=== PATIENT | male | born 1965 | race American Indian/Alaskan Native ===

== ENCOUNTER 2017-01-26 08:40 | Inpatient (IN) | payer MEDICAID ==
[2017-01-21 10:09] LABS: Hematocrit 40.8 % (35.5-45.6); Hemoglobin 13.2 gm/dl (11.8-15.2); Mean Corpuscular HGB Conc 32 % (32-34); Mean Corpuscular Hemoglobin 27 pg (28-32); Mean Corpuscular Volume 85 fl (84-94); Platelet Count 169 K/mm3 (140-440); Red Cell Distribution Width 15.4 % (13.2-15.2); White Blood Count 7.4 K/mm3 (4.5-11.0)
[2017-01-21 10:22] LABS: INR 1.01 (0.87-1.13)
[2017-01-21 10:23] LABS: Partial Thromboplastin Time 27.7 Sec. (24.2-36.6)
[2017-01-21 11:00] LABS: Basophils % (Manual) 0 % (0.0-1.8); Blastocytes % (Manual) 0 %
[2017-01-21 11:01] LABS: Eosinophils % (Manual) 2 % (0.0-4.3)
[2017-01-21 11:02] LABS: Anisocytosis Few; Diff Status Complete
--- NOTE | 2017-01-21 11:02 | Anesthesia Consultation ---
Anesthesia Consult and Med Hx Date of service: 01/26/17 - Airway Anesthetic Teeth Evaluation: Good ROM Head & Neck: Adequate Mental/Hyoid Distance: Adequate Mallampati Class: Class II Intubation Access Assessment: Probably Good - Pulmonary Exam CTA: Yes - Cardiac Exam Cardiac Exam: RRR - Pre-Operative Health Status ASA Pre-Surgery Classification: ASA2 Proposed Anesthetic Plan: General - Pulmonary Hx Smoking: Yes (STOPPED 05/2016-11/15 PPD X 30YRS) Hx Sleep Apnea: No (DHEERAJ PRE SCREEN HIGH RISK) - Cardiovascular System Hx Hypertension: No - Central Nervous System Hx Psychiatric Problems: No - Gastrointestinal Hx Gastroesophageal Reflux Disease: No - Endocrine Hx End Stage Renal Disease: No Hx Insulin Dependent Diabetes: No - Hematic Hx Anemia: Yes Hx Sickle Cell Disease: No - Other Systems Hx Alcohol Use: Yes (STOPPED MARCH 2016; WEEKENDS ONLY) Hx Substance Use: No Hx Cancer: Yes
[2017-01-21 12:43] LABS: Alanine Aminotransferase 62 units/L (7-56); Albumin 3.5 g/dL (3.9-5); Alkaline Phosphatase 57 units/L (35-129); Anion Gap 16 mmol/L; Bilirubin,Total 0.3 mg/dL (0.1-1.2); Blood Urea Nitrogen 18 mg/dL (9-20); Calcium 8.4 mg/dL (8.4-10.2); Carbon Dioxide 22 mmol/L (22-30); Glucose 104 mg/dL (75-100); Potassium 3.8 mmol/L (3.6-5.0); Sodium 138 mmol/L (137-145); Total Protein 6.9 g/dL (6.3-8.2)
--- NOTE | 2017-01-24 18:40 | Admit Criteria Form ---
Admission Criteria Documentation: AMBULATORY SURGERY EXCEPTION CRITERIA Ambulatory Surgery Exception Criteria ( Place 'X' for any and all applicable criteria): Surgery or procedure performed on ambulatory basis may require inpatient stay for[A] ANY ONE of the following(1)(2)(3)(4)(5)(6)(7)(8)(9): [X] I. A preoperative situation, condition, or finding that warrants inpatient stay as indicated by ANY ONE of the following: [X] a) Inpatient care needed because of severity of a disease or condition rather than the surgery (eg, severe cardiac or respiratory disease, severe infection) (15) (16 ) (17) (18) [] b) Emergent procedure (eg, angioplasty for acute ischemia)(19) [] c) Complex surgical approach or situation as indicated by ANY ONE of the following(3): [] i) Open approach needed instead of usual endoscopic, transcatheter, or other less invasive procedure [] ii) Difficult approach because of previous operation [] iii) Airway monitoring required after open neck procedures(20)(21) [] iv) Large mass requiring unusually extensive dissection [] v) Additional complicating feature requiring inpatient care (eg, drain management)(22(23): [] d) Major surgery in a pt with high anesthetic risk as indicated by ANY ONE of the following (2)(3)(5)(7)(8): [] i) ASA risk class III or higher (severe systemic disease impairing function) [D] [] ii) Advanced age (eg, older than 85 years)(14)(24) [] iii) Symptomatic heart failure(25) [] iv) Symptomatic asthma or COPD(8)(21) [] v) Morbid obesity with hemodynamic or respiratory problems(20)( 21)(26)(27) [] vi) Obstructive sleep apnea(20)(21) [] vii) Former premature infants who are younger than 60 weeks [] viii) High risk for severe postoperative abnormalities (eg, severe postoperative hypocalcemia after parathyroidectomy for severe hyperparathyroidism)(27)( 28) [] ix) Unstable angina(25) [] e) Drug-related risk requiring inpatient stay as indicated by ANY ONE of the following(5)(10)(14)(32)(33) [] i) Procedure requires discontinuing drugs or other therapy (eg , antiarrhythmic medication, antiseizure medication), which necessitates inpatient observation or treatment.(18)(31) [] ii) Major surgery and high risk drug use as indicated by ANY ONE of the following: [] 1) Active abuse of cocaine or similar drug [] 2) Monoamine oxidase inhibitor use [] 3) Other drug identified as posing risk [] f) Inadequate outpatient care situation as indicated by ANY ONE of the following(5)(10)(14)(32)(33) [] i) Patient lives remote from medical facility and procedure has urgent complication potential, and temporary nearby residence cannot be arranged [] ii) Patient will have postprocedure incapacitation and inadequate assistance at home, or alternative level of care cannot be arranged. [] iii) Patient will have long general anesthesia or procedure side effect resolution time, and competent person to stay with patient on first postoperative night at home or alternative level of care cannot be arranged. []iv) Other inadequate outpatient situation that cannot be handled by other means [] II. A perioperative event, condition, or finding that warrants inpatient stay as indicated by ANY ONE of the following (1)(2)(3): [] a) Inadequate physiologic recovery: cardiovascular, respiratory, or hemodynamic status not normal or near preoperative baseline(18) [] b) Hemodynamic instability [] c) Patient not alert with near normal or baseline mental status [] d) Temperature not normal or as expected and not appropriate for outpatient treatment of condition [] e) Ambulatory or appropriate activity level status not yet achieved post procedure [E](34)(35)(36) [] f) Operative site not appropriate (eg, unexpected or excessive drainage or bleeding) [] g) Postoperative effects not resolved or adequately managed (eg, significant pain or vomiting not appropriate for outpatient or next level of care)(10)(12) [] h) Complicating features requiring inpatient care as indicated by ANY ONE of the following(37): [] i) Severe complications of procedure (eg, bowel injury, airway compromise, vascular injury,severe hemorrhage) [] ii) Extensive (eg, dissection far beyond usual scope of procedure ) or prolonged (eg, 120 minutes beyond usual) surgery needed requiring inpatient postoperative care [] iii) Conversion to an open or complex procedure that requires inpatient care (eg, open vs laparoscopic cholecystectomy, abdominal vs vaginal hysterectomy)(38) [] iv) Comorbid condition or test result identified during or post procedure that requires inpatient care (7) [] v) Malignant hyperthermia(30) [] vi) Other complicating feature requiring inpatient care(22)(23) Inpatient stay may be needed until ALL of the following are present (1)(2)(3)(4) (5)(6)(10)(14)(33)(40): []a) Physiologic recovery: cardiovascular, respiratory, and hemodynamic status normal or near preoperative baseline []b) Hemodynamic stability []c) Patient alert, with near normal or baseline mental status []d) Temperature appropriate: patient afebrile or temperature appropriate for outpt treatment of condition []e) Activity level appropriate: ambulatory or appropriate activity level post procedure []f) Operative site appropriate as indicated by ALL of the following: []i) Site dry or with expected drainage []ii) Any blood noted is as expected for procedure. []g) Postoperative effects resolved or managed as indicated by ALL of the following: []i) Pain management appropriate for outpatient (or next level of) care(10) []ii) Minimal nausea and vomiting: if present, successfully treated with oral medication(12) []iii) Headache, dizziness, or drowsiness (if present) are mild. []h) Voiding status acceptable as indicated by ANY ONE of the following: []i) Voiding spontaneously []ii) No voiding but instructions given for follow-up in 6 to 8 hours []iii) Urinary catheter in place, and instructions given for follow-up []i) Complicating features requiring inpatient care manageable at a lower level of care(37) []j) Comorbid conditions manageable at a lower level of care(37) The original [employer] content created by [employer] has been revised. The portions of the content which have been revised are identified through the use of italic text or in bold, and [employer] has neither reviewed nor approved the modified material. All other unmodified content is copyright [employer]. Please see references footnoted in the original [employer] edition 2016 Admission Criteria Met: Yes
[~2017-01-26 08:40] MED LIST: ACD-A IV ONE; LACTATED RINGERS 1,000 ML IV SCH; NACL 0.9% 500 ML 500 ML IV NR; NACL 0.9% 500 ML 500 ML IV ONE; PEPCID PO NR; VERSED IV NR
[2017-01-26] MEDS ORDERED: SUBLIMAZE ONE (11:50)
[2017-01-26] MEDS ORDERED: DIPRIVAN 10 MG/ML IV ONE (11:50)
[2017-01-26] MEDS ORDERED: NEO SYNEPHRINE ONE ×3 (11:58→15:14)
[2017-01-26] MEDS ORDERED: NACL 0.9% ONE (11:58)
[2017-01-26] MEDS ORDERED: ANCEF/STERILE WATER 2 GM/20 ML IV NR (12:00)
--- NOTE | 2017-01-26 12:05 | XRay Report ---
AP CHEST: HISTORY: Central line placement A right IJ venous catheter has been inserted which terminates in the superior right atrium. No pneumothorax. AP view of the chest demonstrates a normal mediastinal and cardiac contour with clear lungs and normal bony and soft tissue structures. IMPRESSION: Line placement as described. No acute process.
[2017-01-26] MEDS ORDERED: XYLOCAINE MPF 2% ONE ×7 (13:25→17:06)
[2017-01-26] MEDS ORDERED: ZEMURON IV ONE ×4 (13:26→16:55)
[2017-01-26] MEDS ORDERED: NACL 0.9% 100 ML ONE ×2 (13:26→15:14)
[2017-01-26] MEDS ORDERED: ROBINUL ONE ×2 (15:14→16:39)
[2017-01-26] MEDS ORDERED: LASIX ONE (15:47)
[2017-01-26] MEDS ORDERED: LACTATED RINGERS 1,000 ML ONE ×2 (15:48→16:37)
[2017-01-26] MEDS ORDERED: ANCEF ONE (15:50)
[2017-01-26] MEDS ORDERED: SODIUM CHLORIDE FLUSH SYRINGE 10 ML IV PRN (16:17)
[2017-01-26] MEDS ORDERED: NARCAN 0.4 MG/1 ML IV PRN ×2 (16:17→17:20)
[2017-01-26] MEDS ORDERED: NEOSTIGMINE ONE (16:39)
[2017-01-26] MEDS ORDERED: ZOFRAN ONE (16:39)
--- NOTE | 2017-01-26 17:18 | Post Operative Note ---
Pre-op diagnosis: bladder cancer Post-op diagnosis: same Procedure: radical cysto prostatectomy ileal conduit Anesthesia: GETA Surgeon: SHIRA OLIVO Gas Transfer Operator: MISHA MANN Estimated blood loss: other (650) Pathology: list (bladder prostae appendix) Specimen disposition: to lab Condition: stable Disposition: ICU
[2017-01-26] MEDS ORDERED: ePHEDrine SULFATE ONE (17:34)
[2017-01-26] MEDS ORDERED: VERSED ONE (17:43)
[2017-01-26] MEDS ORDERED: ALBURX 25% (ALBUMIN) IV ONE ×3 (17:48→19:00)
[2017-01-26] MEDS ORDERED: D5W/0.45% NACL/KCL 20 MEQ 20 MEQ/1,000 ML BAG IV SCH (18:00)
[2017-01-26 18:14] LABS: Hematocrit 36.2 % (35.5-45.6); Hemoglobin 11.5 gm/dl (11.8-15.2); Mean Corpuscular HGB Conc 32 % (32-34); Mean Corpuscular Hemoglobin 27 pg (28-32); Mean Corpuscular Volume 86 fl (84-94); Platelet Count 227 K/mm3 (140-440); Red Blood Count 4.23 M/mm3 (3.65-5.03); Red Cell Distribution Width 15.7 % (13.2-15.2)
[2017-01-26 18:16] LABS: White Blood Count 20.2 K/mm3 (4.5-11.0)
[2017-01-26 18:23] LABS: INR 1.18 (0.87-1.13)
[2017-01-26 18:24] LABS: Partial Thromboplastin Time 24.9 Sec. (24.2-36.6)
[2017-01-26] MEDS ORDERED: SUBLIMAZE 500 MCG in NACL 0.9% 90 ML EPIDURAL SCH (18:30)
[2017-01-26 18:31] LABS: Anion Gap 16 mmol/L; Blood Urea Nitrogen 15 mg/dL (9-20); Calcium 7.4 mg/dL (8.4-10.2); Carbon Dioxide 21 mmol/L (22-30); Chloride 107.5 mmol/L (98-107); Glucose 141 mg/dL (75-100); Potassium 5.3 mmol/L (3.6-5.0); Sodium 139 mmol/L (137-145)
[2017-01-26] MEDS ORDERED: DILAUDID ONE ×2 (18:34→20:27)
[2017-01-26] MEDS ORDERED: ZOFRAN IV PRN (18:39)
[2017-01-26] MEDS ORDERED: NACL 0.9% IR ONE (18:40)
[2017-01-26] MEDS ORDERED: TISSEEL VHSD FROZEN 4 ML SYR TP ONE (18:40)
[2017-01-26] MEDS: DILAUDID IV PRN ×3 (18:40→21:59)
[2017-01-26] MEDS ORDERED: TORADOL ONE (19:04)
[2017-01-26 19:25] LABS: Basophils % (Manual) 0 % (0.0-1.8); Blastocytes % (Manual) 0 %; Eosinophils % (Manual) 0 % (0.0-4.3)
[2017-01-26 19:27] LABS: Anisocytosis 1+; Diff Status Complete
[2017-01-26] MEDS ORDERED: NACL 0.9% 1000 ML 1,000 ML ONE (19:31)
--- NOTE | 2017-01-26 19:52 | Post Anesthesia Evaluation ---
- Post Anesthesia Evaluation Patient Participated: Yes Airway Patent: Yes Stable Respiratory Function: Yes Nausea/Vomiting: No Temp > 96.8F: Yes Pain Manageable: Yes Adequeate Hydration: Yes Anesthesia Complications: No
[2017-01-26] MEDS ORDERED: TORADOL IV ONE (20:00)
[2017-01-26 21:25] LABS: Hematocrit 33.9 % (35.5-45.6); Hemoglobin 10.7 gm/dl (11.8-15.2); Mean Corpuscular HGB Conc 32 % (32-34); Mean Corpuscular Hemoglobin 27 pg (28-32); Mean Corpuscular Volume 86 fl (84-94); Platelet Count 174 K/mm3 (140-440); Red Blood Count 3.94 M/mm3 (3.65-5.03); Red Cell Distribution Width 15.7 % (13.2-15.2)
--- NOTE | 2017-01-26 21:32 | Operative Report ---
PREOPERATIVE DIAGNOSIS: Malignancy of the urinary bladder. POSTOPERATIVE DIAGNOSIS: Malignancy of the urinary bladder. PROCEDURES: 1. Exploratory laparotomy, total cystectomy, and ileal conduit with a segment of the distal ileum with implantation of both ureters in it.Tis was done by Dr Nassar 2. Appendectomy. This was done in conjunction with Dr. Wu and Dr. Ely as co-surgeons. My involvement is mainly in the GI tract to take a segment of the small intestines and the distal ileum and to hook it to the abdominal wall as an ileostomy with the implantation of the ureters at its proximal aspect as per description of Dr. Wu. We did appendectomy as well because it is a part and parcel of the operation. ANESTHESIA: General. BLOOD LOSS: As per Dr. Wu. DESCRIPTION OF PROCEDURE: As Dr. Wu finished opening the abdomen, I walked in to evaluate the situation and he did that after doing the cystectomy as well and he prepared the both ends of the ureters for the implantation. At that point, an area of the distal ileum was selected about a good 20 cm from the ileocecal valve. Prior to that, we took the appendix out with the mesoappendix was suture ligated using for that purpose 3-0 Vicryl and then the appendix was removed in toto tying it with the suture ligature of 3-0 Vicryl. We assured good hemostasis. Then, our attention was directed to the segment of the ileum that was resected. We used for that purpose the NAKIA and we could see good arterial supply and venous drainage from that segment and to me the mesentery itself. After that maneuvering, Dr. Wu put the implants into the proximal segment of that area and then it was delivered through the abdominal wall on the right side of the midline incision. It was tacked to the skin interruptedly with the use of 3-0 Vicryl. With it or within it, the two ureteral stents that was inserted by Dr. Wu for there. We were well satisfied with good hemostasis. Then, the fascia was closed with a continuous stitch of loop PDS #2, reinforced with multiple interrupted stitches of 3-0 Vicryl and the skin with kole. We are going to apply a bag to the ileostomy opening, with the 2 catheters draining clear urine. The patient was then transferred to the recovery room. He is going to go to the Intensive Care Unit . JOB# [id number] JOSLYN/JOHN CALLE
[2017-01-26 21:36] LABS: Anion Gap 16 mmol/L; Blood Urea Nitrogen 13 mg/dL (9-20); Calcium 7.3 mg/dL (8.4-10.2); Carbon Dioxide 19 mmol/L (22-30); Chloride 107.9 mmol/L (98-107); Glucose 147 mg/dL (75-100); Sodium 139 mmol/L (137-145)
[2017-01-26] MEDS ORDERED: D5NS 1,000 ML IV SCH (22:00)
--- NOTE | 2017-01-26 22:05 | Operative Report ---
PREOPERATIVE DIAGNOSIS: Extensive bladder cancer. POSTOPERATIVE DIAGNOSIS: Extensive bladder cancer. PROCEDURE: Radical cystoprostatectomy and ileal conduit diversion appendectomy. SURGEON: Gopal Wu MD ASSISTANTS: Dr. Ely and Dr. Easton. ANESTHESIA: General and epidural. FINDINGS: This is a gentleman with extensive bladder cancer. He has had second and offered third opinions and intermittently had refused surgery and delayed for quite some time. He started bleeding actually over a year before his first visit. He now presents for treatment. He is a heavy smoker in the past. DESCRIPTION OF PROCEDURE: The patient was brought to the operating room and placed on the operating table. Following induction of anesthesia, placed in the supine position, prepped and draped in the usual sterile fashion. A midline incision was made to the left umbilicus, carried through the skin and superficial fascia. The fascia was opened and the retropubic space was developed. We evaluated the nodes on each side, there were no large nodes. The bladder was mobile. We divided the urachus and urachal remnants and tied it with a silk. Both pedicles were dissected free, and once they were mobilized, we divided the vas and freed up the bladder anteriorly. We then dissected out both ureters and sent the distal ureters for frozen section, which were benign. Stay sutures were placed in the ureters. It should be noted the ureters were quite delicate, very, very thin and very, very narrow. At this point, the pedicles were taken with articulating Endo NAKIA all the way down to the prostate and then the inferior vesical pedicle was then taken. Posteriorly, we had a good plane between the rectum and [place]illiers and we were able to dissect out the seminal vesicle and vasa on both sides without difficulty. Anteriorly, we divided the puboprostatic and then we divided the urethra and freed up the prostate and removed the specimen. Wound was copiously irrigated. We placed initially a suture ligature around the dorsal venous complex along with tighter before we divided it. Hemostasis was excellent. A 20-[place]izen [place] Perez was placed with Surgicel in the pelvis. There was approximately 25 mL in the balloon. Wound was copiously irrigated. We used Tisseel in the pelvis as well. At this point, Dr. Easton mobilized the colon, did an appendectomy that will be dictated separately and did the small bowel conduit of the ileum. The anastomosis was completed and that will be dictated separately. Attention was made towards the ureteroileal anastomosis. There was approximately 15 cm of ileum. The left ureter was brought through the mesentery of the colon and again this was so narrow and so delicate the ureters. We spatulated with Calderón scissors and using a 3-0 and 4-0 Vicryl on an RB needle. The anastomosis was completed. We tried to place an 8-[place]izen [place] feeding tube, it was too narrow. We tried to place a 7-[place]izen [place] single J, it was too narrow. We then used a wire and placed 6-[place]izen [place] open-ended catheters on each side. The right anastomosis was then completed as well. Wound was irrigated. The conduit was sutured with two sutures of 3-0 chromic to the body wall away from the area of closure. At this point, the stoma was created by excising the skin and fatty tissue and bringing the loop through and securing it with four sutures of 2-0 Vicryl. We everted as much as possible. He is quite a heavy gentleman and we developed a [place]. There was a little duskiness at the stoma, but it was quite viable and 2 fingerbreadths easily accommodated the conduit and it was wide open. The stents were secured with 3-0 chromic. Wound was irrigated. An ostomy bag was applied. The closure was accomplished with looped PDS and #1 Vicryls and clips. The patient tolerated the procedure well. Estimated blood loss 650 mL. He was given Cell Saver. I saw this specimen a bivalve that was an extensive cancer in the bladder. He was brought to recovery room with NG tube and the pelvic drain in stable condition. JOB# [id number] MAJO/JOHN
[2017-01-26 22:17] LABS: Basophils % (Manual) 0 % (0.0-1.8); Blastocytes % (Manual) 0 %; Eosinophils % (Manual) 0 % (0.0-4.3)
[2017-01-26 22:18] LABS: Anisocytosis 1+; Diff Status Complete; Platelet Estimate Consistent w Auto
[2017-01-27] MEDS ORDERED: NACL 0.9% 500 ML 500 ML IV ONE (00:58)
[2017-01-27] MEDS ORDERED: LACTATED RINGERS 1,000 ML IV SCH (07:00)
--- NOTE | 2017-01-27 07:15 | XRay Report ---
Single view chest: Compared to 01/26/17. History: NG tube placement. Findings: Normal cardiomediastinal silhouette. Tip of NG tube in stomach. Trachea is midline. Tip of right central line in superior vena cava. No consolidation, pneumothorax or pleural effusion. The Impression: No acute cardiopulmonary findings.
--- NOTE | 2017-01-27 07:55 | Event Note ---
Date: 01/27/17 Discussed w/ nursing staff pt management and parameters to contact me and laboratory technologist immediately and for any low bp. pt stable w/ some borderline bp. MS , uop good. Labs reviewed. Will transfuse 1 unit and monitor to keep ahead of fluid shifts. Nurse given my Home phone number in case problems with contacting through answering service.
[2017-01-27] MEDS: MORPHINE IV PRN (08:44)
--- NOTE | 2017-01-27 09:29 | Consultation ---
History of Present Illness - Reason for Consult Consult date: 01/27/17 ICU Requesting physician: SHIRA OLIVO - History of Present Illness 51 y/o male s/p radical cysto prostatectomy ileal conduit . Admitted to ICU for observation. This patient this am, complains of pain. Breathing is stable. No family currently at bedside. Has an art line with normal BP. BP cough is reading significantly lower. Likely too big. Past History Past Surgical History: No surgical history Social history: no significant social history Medications and Allergies Allergies Allergy/AdvReac Type Severity Reaction Status Date / Time Iodine and Iodide Containing Allergy Swelling Verified 09/22/16 13:07 Produc shrimp Allergy Swelling Verified 09/22/16 13:07 Home Medications Medication Instructions Recorded Confirmed Last Taken Type Acetaminophen [Acetaminophen TAB] 650 mg PO Q4H PRN #30 tablet 06/03/1601/25/17 Rx Ferrous Sulfate [Feosol 325 MG tab] 325 mg PO BID #60 tablet 06/03/16 01/20/17 01/25/17 Rx oxyCODONE /ACETAMINOPHEN [Percocet 1 tab PO Q4H PRN #30 tablet 06/03/1601/25/17 Rx 5/325 mg] Active Meds: Active Medications Acetaminophen/Hydrocodone Bitart ([place] 5/325) 2 each PO Q6H PRN PRN Reason: Pain, Moderate (4-6) Famotidine (Pepcid) 20 mg IV BID CATINA Hydromorphone HCl (Dilaudid) 0.5 mg IV Q10MIN PRN PRN Reason: Pain , Severe (7-10) Stop: 01/29/17 18:40 Last Admin: 01/26/17 21:59 Dose: 0.5 mg Fentanyl 500 mcg/ Sodium (Chloride) 100 mls @ 8 mls/hr EPIDURAL DIRECT CATINA PRN Reason: Protocol Cefazolin Sodium (Ancef/Ns 1 Gm/50 Ml) 1 gm in 50 mls @ 100 mls/hr IV Q8H CATINA PRN Reason: Protocol Stop: 01/28/17 10:29 Dextrose/Sodium Chloride (D5ns) 1,000 mls @ 100 mls/hr IV DIRECT CATINA Lactated Ringer's (Lactated Ringers) 1,000 mls @ 150 mls/hr IV DIRECT CATINA Influenza Virus Vaccine Quadrival (Fluarix Quad [id number](36 Mos+)) 60 mcg IM .ONCE ONE Stop: 01/27/17 12:01 Metoclopramide HCl (Reglan) 10 mg IV Q6H PRN PRN Reason: Nausea And Vomiting Morphine Sulfate (Morphine) 2 mg IV Q4H PRN PRN Reason: Pain, Moderate (4-6) Last Admin: 01/27/17 08:44 Dose: 2 mg Naloxone HCl (Narcan 0.4 Mg/1 Ml) 0.1 mg IV Q2MIN PRN PRN Reason: Res Rate </= 8 or 02 SAT < 92% Ondansetron HCl (Zofran) 4 mg IV Q8H PRN PRN Reason: N/V unrelieved by Reglan Sodium Chloride (Sodium Chloride Flush Syringe 10 Ml) 10 ml IV PRN PRN PRN Reason: LINE FLUSH Review of Systems All systems: negative Exam - Constitutional Vitals: Temp Pulse Resp BP Pulse Ox 99.2 F 90 21 109/66 98 01/27/17 08:13 01/27/17 08:00 01/27/17 08:00 01/27/17 08:00 01/27/17 08:00 General appearance: Present: mild distress (secondary to pain) - EENT Eyes: Present: PERRL, EOM intact ENT: hearing intact, clear oral mucosa, dentition normal - Neck Neck: Present: supple, normal ROM - Respiratory Respiratory effort: normal Respiratory: bilateral: CTA - Cardiovascular Rhythm: regular Heart Sounds: Present: S1 & S2 - Extremities Extremities: no ischemia - Abdominal General gastrointestinal: Present: soft Male genitourinary: Present: deferred - Rectal Rectal Exam: deferred - Integumentary Integumentary: Present: clear, warm, dry - Musculoskeletal Musculoskeletal: strength equal bilaterally - Psychiatric Psychiatric: appropriate mood/affect - Neurologic Neurologic: CNII-XII intact Results - Labs CBC & Chem 7: 01/26/17 Unknown 01/26/17 Unknown Labs: Abnormal lab results 01/26/17 01/26/17 01/26/17 Range/Units 10:45 17:53 17:53 WBC 20.2 H (4.5-11.0) K/mm3 Hgb 11.5 L (11.8-15.2) gm/dl Hct (35.5-45.6) % MCH 27 L (28-32) pg RDW 15.7 H (13.2-15.2) % Seg Neuts % (Manual) 85.0 H (40.0-70.0) % Lymphocytes % (Manual) 7.0 L (13.4-35.0) % Monocytes % (Manual) 8.0 H (0.0-7.3) % Seg Neutrophils # Man 17.2 H (1.8-7.7) K/mm3 Lymphocytes # (Manual) (1.2-5.4) K/mm3 Monocytes # (Manual) 1.6 H (0.0-0.8) K/mm3 INR 1.18 H (0.87-1.13) Potassium (3.6-5.0) mmol/L Chloride (98-107) mmol/L Carbon Dioxide (22-30) mmol/L Glucose (75-100) mg/dL Calcium (8.4-10.2) mg/dL Crossmatch See Detail 01/26/17 01/26/17 01/26/17 Range/Units 17:53 Unknown Unknown WBC 16.0 H (4.5-11.0) K/mm3 Hgb 10.7 L (11.8-15.2) gm/dl Hct 33.9 L (35.5-45.6) % MCH 27 L (28-32) pg RDW 15.7 H (13.2-15.2) % Seg Neuts % (Manual) 90.0 H (40.0-70.0) % Lymphocytes % (Manual) 5.0 L (13.4-35.0) % Monocytes % (Manual) (0.0-7.3) % Seg Neutrophils # Man 14.4 H (1.8-7.7) K/mm3 Lymphocytes # (Manual) 0.8 L (1.2-5.4) K/mm3 Monocytes # (Manual) (0.0-0.8) K/mm3 INR (0.87-1.13) Potassium 5.3 H (3.6-5.0) mmol/L Chloride 107.5 H 107.9 H (98-107) mmol/L Carbon Dioxide 21 L 19 L (22-30) mmol/L Glucose 141 H 147 H (75-100) mg/dL Calcium 7.4 L 7.3 L (8.4-10.2) mg/dL Crossmatch - Imaging and Cardiology Chest x-ray: image reviewed (clear) Assessment and Plan 51 y/o male s/p radical cysto prostatectomy ileal conduit . 1. needs better pain control 2. Will order IS to bedside 3. Will ask nursing about BP cough change out.
--- NOTE | 2017-01-27 09:58 | Progress Note ---
Assessment and Plan ostomy bag filled leaking all over bed awake and alert pain meds needed labs noted Subjective Date of service: 01/27/17 Principal diagnosis: bladder cancer Objective - Constitutional Vitals: Vital Signs - 12hr 01/26/17 01/26/17 01/26/17 22:00 22:11 22:12 Temperature Pulse Rate 93 H 89 Respiratory 22 18 Rate Blood Pressure 102/68 102/68 O2 Sat by Pulse 99 99 98 Oximetry 01/26/17 01/26/17 01/26/17 22:21 22:30 22:41 Temperature Pulse Rate 90 87 83 Respiratory 15 21 18 Rate Blood Pressure 102/68 99/58 99/58 O2 Sat by Pulse 99 99 98 Oximetry 01/26/17 01/26/17 01/26/17 22:51 23:00 23:11 Temperature Pulse Rate 87 82 81 Respiratory 17 18 18 Rate Blood Pressure 93/60 92/59 92/59 O2 Sat by Pulse 98 100 99 Oximetry 01/26/17 01/26/17 01/26/17 23:21 23:30 23:41 Temperature Pulse Rate 81 81 82 Respiratory 16 17 13 Rate Blood Pressure 94/63 89/64 89/64 O2 Sat by Pulse 99 99 98 Oximetry 01/26/17 01/27/17 01/27/17 23:51 00:00 00:11 Temperature 98.4 F Pulse Rate 76 87 82 Respiratory 14 15 12 Rate Blood Pressure 83/58 89/60 89/60 O2 Sat by Pulse 99 98 99 Oximetry 01/27/17 01/27/17 01/27/17 00:21 00:30 00:41 Temperature Pulse Rate 81 83 79 Respiratory 15 13 15 Rate Blood Pressure 94/61 86/61 86/61 O2 Sat by Pulse 99 99 100 Oximetry 01/27/17 01/27/17 01/27/17 00:51 01:00 01:11 Temperature Pulse Rate 80 79 77 Respiratory 16 18 19 Rate Blood Pressure 96/63 98/66 98/66 O2 Sat by Pulse 99 98 99 Oximetry 01/27/17 01/27/17 01/27/17 01:21 01:30 01:41 Temperature Pulse Rate 87 81 81 Respiratory 23 16 14 Rate Blood Pressure 97/66 97/67 97/67 O2 Sat by Pulse 99 99 98 Oximetry 01/27/17 01/27/17 01/27/17 01:51 02:00 02:11 Temperature Pulse Rate 83 82 79 Respiratory 18 20 15 Rate Blood Pressure 97/68 105/71 105/71 O2 Sat by Pulse 98 99 99 Oximetry 01/27/17 01/27/17 01/27/17 02:21 02:30 02:41 Temperature Pulse Rate 82 81 82 Respiratory 19 17 22 Rate Blood Pressure 81/47 105/69 81/47 O2 Sat by Pulse 98 99 99 Oximetry 01/27/17 01/27/17 01/27/17 02:51 03:00 03:11 Temperature Pulse Rate 86 84 85 Respiratory 19 19 20 Rate Blood Pressure 109/73 104/72 105/69 O2 Sat by Pulse 99 100 99 Oximetry 01/27/17 01/27/17 01/27/17 03:21 03:30 03:41 Temperature Pulse Rate 91 H 90 85 Respiratory 25 H 21 24 Rate Blood Pressure 105/68 109/75 109/75 O2 Sat by Pulse 100 100 98 Oximetry 01/27/17 01/27/17 01/27/17 03:51 04:00 04:11 Temperature 98.1 F Pulse Rate 90 87 88 Respiratory 28 H 20 12 Rate Blood Pressure 99/60 104/68 104/68 O2 Sat by Pulse 100 99 99 Oximetry 01/27/17 01/27/17 01/27/17 04:21 04:30 04:41 Temperature Pulse Rate 90 89 92 H Respiratory 28 H 34 H 20 Rate Blood Pressure 106/70 110/70 110/70 O2 Sat by Pulse 99 99 99 Oximetry 01/27/17 01/27/17 01/27/17 04:51 05:00 05:11 Temperature Pulse Rate 92 H 97 H 92 H Respiratory 25 H 23 22 Rate Blood Pressure 114/76 118/74 118/74 O2 Sat by Pulse 99 98 98 Oximetry 01/27/17 01/27/17 01/27/17 05:21 05:30 05:41 Temperature Pulse Rate 92 H 91 H 89 Respiratory 23 18 19 Rate Blood Pressure 95/57 99/59 99/59 O2 Sat by Pulse 98 99 99 Oximetry 01/27/17 01/27/17 01/27/17 05:51 06:00 06:11 Temperature Pulse Rate 92 H 88 92 H Respiratory 22 12 21 Rate Blood Pressure 93/59 102/68 102/68 O2 Sat by Pulse 99 99 98 Oximetry 01/27/17 01/27/17 01/27/17 06:21 06:30 06:41 Temperature Pulse Rate 84 92 H 88 Respiratory 21 17 21 Rate Blood Pressure 96/50 87/50 87/50 O2 Sat by Pulse 98 98 98 Oximetry 01/27/17 01/27/17 01/27/17 06:51 07:00 07:11 Temperature Pulse Rate 94 H 94 H 92 H Respiratory 26 H 20 21 Rate Blood Pressure 99/75 96/60 96/60 O2 Sat by Pulse 98 97 98 Oximetry 01/27/17 01/27/17 01/27/17 07:21 07:30 07:31 Temperature Pulse Rate 96 H 91 H Respiratory 23 18 Rate Blood Pressure 104/73 109/68 O2 Sat by Pulse 97 99 98 Oximetry 01/27/17 01/27/17 01/27/17 07:41 07:51 08:00 Temperature Pulse Rate 92 H 94 H 90 Respiratory 17 22 21 Rate Blood Pressure 109/68 104/65 109/66 O2 Sat by Pulse 97 98 98 Oximetry 01/27/17 08:13 Temperature 99.2 F Pulse Rate Respiratory Rate Blood Pressure O2 Sat by Pulse Oximetry General appearance: Present: no acute distress - Neck Neck: supple - Respiratory Respiratory effort: normal Extremities: no ischemia - Gastrointestinal General gastrointestinal: Present: soft, tender (ostomy leaking bag fill ) - Labs CBC & Chem 7: 01/26/17 Unknown 01/26/17 Unknown Labs: Abnormal lab results 01/26/17 01/26/17 01/26/17 Range/Units 10:45 17:53 17:53 WBC 20.2 H (4.5-11.0) K/mm3 Hgb 11.5 L (11.8-15.2) gm/dl Hct (35.5-45.6) % MCH 27 L (28-32) pg RDW 15.7 H (13.2-15.2) % Seg Neuts % (Manual) 85.0 H (40.0-70.0) % Lymphocytes % (Manual) 7.0 L (13.4-35.0) % Monocytes % (Manual) 8.0 H (0.0-7.3) % Seg Neutrophils # Man 17.2 H (1.8-7.7) K/mm3 Lymphocytes # (Manual) (1.2-5.4) K/mm3 Monocytes # (Manual) 1.6 H (0.0-0.8) K/mm3 INR 1.18 H (0.87-1.13) Potassium (3.6-5.0) mmol/L Chloride (98-107) mmol/L Carbon Dioxide (22-30) mmol/L Glucose (75-100) mg/dL Calcium (8.4-10.2) mg/dL Crossmatch See Detail 01/26/17 01/26/17 01/26/17 Range/Units 17:53 Unknown Unknown WBC 16.0 H (4.5-11.0) K/mm3 Hgb 10.7 L (11.8-15.2) gm/dl Hct 33.9 L (35.5-45.6) % MCH 27 L (28-32) pg RDW 15.7 H (13.2-15.2) % Seg Neuts % (Manual) 90.0 H (40.0-70.0) % Lymphocytes % (Manual) 5.0 L (13.4-35.0) % Monocytes % (Manual) (0.0-7.3) % Seg Neutrophils # Man 14.4 H (1.8-7.7) K/mm3 Lymphocytes # (Manual) 0.8 L (1.2-5.4) K/mm3 Monocytes # (Manual) (0.0-0.8) K/mm3 INR (0.87-1.13) Potassium 5.3 H (3.6-5.0) mmol/L Chloride 107.5 H 107.9 H (98-107) mmol/L Carbon Dioxide 21 L 19 L (22-30) mmol/L Glucose 141 H 147 H (75-100) mg/dL Calcium 7.4 L 7.3 L (8.4-10.2) mg/dL Crossmatch
[2017-01-27] MEDS ORDERED: NARCAN 0.4 MG/1 ML IV PRN (10:00)
--- NOTE | 2017-01-27 10:08 | Progress Note ---
Subjective Date of service: 01/27/17 Principal diagnosis: bladder cancer Interval history: Patient not having any relief with epidural. Epidural discontinued and DECORATING INSTRUCTOR ordered for pain management. Will follow up to see if DECORATING INSTRUCTOR is adequate. Patient reports taking 2 lortab 5mg tablets per day for last few months so likely has a high narcotic requirement. Objective - Constitutional Vitals: Vital Signs - 12hr 01/26/17 01/26/17 01/26/17 22:11 22:12 22:21 Temperature Pulse Rate 89 90 Respiratory 18 15 Rate Blood Pressure 102/68 102/68 O2 Sat by Pulse 99 98 99 Oximetry 01/26/17 01/26/17 01/26/17 22:30 22:41 22:51 Temperature Pulse Rate 87 83 87 Respiratory 21 18 17 Rate Blood Pressure 99/58 99/58 93/60 O2 Sat by Pulse 99 98 98 Oximetry 01/26/17 01/26/17 01/26/17 23:00 23:11 23:21 Temperature Pulse Rate 82 81 81 Respiratory 18 18 16 Rate Blood Pressure 92/59 92/59 94/63 O2 Sat by Pulse 100 99 99 Oximetry 01/26/17 01/26/17 01/26/17 23:30 23:41 23:51 Temperature Pulse Rate 81 82 76 Respiratory 17 13 14 Rate Blood Pressure 89/64 89/64 83/58 O2 Sat by Pulse 99 98 99 Oximetry 01/27/17 01/27/17 01/27/17 00:00 00:11 00:21 Temperature 98.4 F Pulse Rate 87 82 81 Respiratory 15 12 15 Rate Blood Pressure 89/60 89/60 94/61 O2 Sat by Pulse 98 99 99 Oximetry 01/27/17 01/27/17 01/27/17 00:30 00:41 00:51 Temperature Pulse Rate 83 79 80 Respiratory 13 15 16 Rate Blood Pressure 86/61 86/61 96/63 O2 Sat by Pulse 99 100 99 Oximetry 01/27/17 01/27/17 01/27/17 01:00 01:11 01:21 Temperature Pulse Rate 79 77 87 Respiratory 18 19 23 Rate Blood Pressure 98/66 98/66 97/66 O2 Sat by Pulse 98 99 99 Oximetry 01/27/17 01/27/17 01/27/17 01:30 01:41 01:51 Temperature Pulse Rate 81 81 83 Respiratory 16 14 18 Rate Blood Pressure 97/67 97/67 97/68 O2 Sat by Pulse 99 98 98 Oximetry 01/27/17 01/27/17 01/27/17 02:00 02:11 02:21 Temperature Pulse Rate 82 79 82 Respiratory 20 15 19 Rate Blood Pressure 105/71 105/71 81/47 O2 Sat by Pulse 99 99 98 Oximetry 01/27/17 01/27/17 01/27/17 02:30 02:41 02:51 Temperature Pulse Rate 81 82 86 Respiratory 17 22 19 Rate Blood Pressure 105/69 81/47 109/73 O2 Sat by Pulse 99 99 99 Oximetry 01/27/17 01/27/17 01/27/17 03:00 03:11 03:21 Temperature Pulse Rate 84 85 91 H Respiratory 19 20 25 H Rate Blood Pressure 104/72 105/69 105/68 O2 Sat by Pulse 100 99 100 Oximetry 01/27/17 01/27/17 01/27/17 03:30 03:41 03:51 Temperature Pulse Rate 90 85 90 Respiratory 21 24 28 H Rate Blood Pressure 109/75 109/75 99/60 O2 Sat by Pulse 100 98 100 Oximetry 01/27/17 01/27/17 01/27/17 04:00 04:11 04:21 Temperature 98.1 F Pulse Rate 87 88 90 Respiratory 20 12 28 H Rate Blood Pressure 104/68 104/68 106/70 O2 Sat by Pulse 99 99 99 Oximetry 01/27/17 01/27/17 01/27/17 04:30 04:41 04:51 Temperature Pulse Rate 89 92 H 92 H Respiratory 34 H 20 25 H Rate Blood Pressure 110/70 110/70 114/76 O2 Sat by Pulse 99 99 99 Oximetry 01/27/17 01/27/17 01/27/17 05:00 05:11 05:21 Temperature Pulse Rate 97 H 92 H 92 H Respiratory 23 22 23 Rate Blood Pressure 118/74 118/74 95/57 O2 Sat by Pulse 98 98 98 Oximetry 01/27/17 01/27/17 01/27/17 05:30 05:41 05:51 Temperature Pulse Rate 91 H 89 92 H Respiratory 18 19 22 Rate Blood Pressure 99/59 99/59 93/59 O2 Sat by Pulse 99 99 99 Oximetry 01/27/17 01/27/17 01/27/17 06:00 06:11 06:21 Temperature Pulse Rate 88 92 H 84 Respiratory 12 21 21 Rate Blood Pressure 102/68 102/68 96/50 O2 Sat by Pulse 99 98 98 Oximetry 01/27/17 01/27/17 01/27/17 06:30 06:41 06:51 Temperature Pulse Rate 92 H 88 94 H Respiratory 17 21 26 H Rate Blood Pressure 87/50 87/50 99/75 O2 Sat by Pulse 98 98 98 Oximetry 01/27/17 01/27/17 01/27/17 07:00 07:11 07:21 Temperature Pulse Rate 94 H 92 H 96 H Respiratory 20 21 23 Rate Blood Pressure 96/60 96/60 104/73 O2 Sat by Pulse 97 98 97 Oximetry 01/27/17 01/27/17 01/27/17 07:30 07:31 07:41 Temperature Pulse Rate 91 H 92 H Respiratory 18 17 Rate Blood Pressure 109/68 109/68 O2 Sat by Pulse 99 98 97 Oximetry 01/27/17 01/27/17 01/27/17 07:51 08:00 08:13 Temperature 99.2 F Pulse Rate 94 H 90 Respiratory 22 21 Rate Blood Pressure 104/65 109/66 O2 Sat by Pulse 98 98 Oximetry - Labs CBC & Chem 7: 01/26/17 Unknown 01/26/17 Unknown Labs: Abnormal lab results 01/26/17 01/26/17 01/26/17 Range/Units 10:45 17:53 17:53 WBC 20.2 H (4.5-11.0) K/mm3 Hgb 11.5 L (11.8-15.2) gm/dl Hct (35.5-45.6) % MCH 27 L (28-32) pg RDW 15.7 H (13.2-15.2) % Seg Neuts % (Manual) 85.0 H (40.0-70.0) % Lymphocytes % (Manual) 7.0 L (13.4-35.0) % Monocytes % (Manual) 8.0 H (0.0-7.3) % Seg Neutrophils # Man 17.2 H (1.8-7.7) K/mm3 Lymphocytes # (Manual) (1.2-5.4) K/mm3 Monocytes # (Manual) 1.6 H (0.0-0.8) K/mm3 INR 1.18 H (0.87-1.13) Potassium (3.6-5.0) mmol/L Chloride (98-107) mmol/L Carbon Dioxide (22-30) mmol/L Glucose (75-100) mg/dL Calcium (8.4-10.2) mg/dL Crossmatch See Detail 01/26/17 01/26/17 01/26/17 Range/Units 17:53 Unknown Unknown WBC 16.0 H (4.5-11.0) K/mm3 Hgb 10.7 L (11.8-15.2) gm/dl Hct 33.9 L (35.5-45.6) % MCH 27 L (28-32) pg RDW 15.7 H (13.2-15.2) % Seg Neuts % (Manual) 90.0 H (40.0-70.0) % Lymphocytes % (Manual) 5.0 L (13.4-35.0) % Monocytes % (Manual) (0.0-7.3) % Seg Neutrophils # Man 14.4 H (1.8-7.7) K/mm3 Lymphocytes # (Manual) 0.8 L (1.2-5.4) K/mm3 Monocytes # (Manual) (0.0-0.8) K/mm3 INR (0.87-1.13) Potassium 5.3 H (3.6-5.0) mmol/L Chloride 107.5 H 107.9 H (98-107) mmol/L Carbon Dioxide 21 L 19 L (22-30) mmol/L Glucose 141 H 147 H (75-100) mg/dL Calcium 7.4 L 7.3 L (8.4-10.2) mg/dL Crossmatch
--- NOTE | 2017-01-27 10:28 | XRay Report ---
Single view chest: Compared to 01/26/17. History: Fluid. Findings: Borderline cardiomegaly. Trachea is midline. No consolidation, pneumothorax or pleural effusion. Tip of right central line in mid superior vena cava. Impression: No acute cardiopulmonary findings.
[2017-01-27] MEDS: DILAUDID PCA 6MG/30ML IV SCH ×2 (10:32→19:18)
[2017-01-27] MEDS: PEPCID IV SCH ×2 (11:01→23:07)
[2017-01-27] MEDS: ANCEF/NS 1 GM/50 ML 1 GM/50 ML BAG IV SCH ×2 (11:02→17:02)
[2017-01-27] MEDS: D5W/0.45% NACL/KCL 20 MEQ 20 MEQ/1,000 ML BAG IV SCH ×2 (11:03→20:42)
[2017-01-27] MEDS ORDERED: FLUARIX QUAD 2016-2017(36 MOS+) IM ONE (12:00)
--- NOTE | 2017-01-27 12:10 | XRay Report ---
Flatplate abdomen: History: NG tube placement. Findings: Tip of NG tube is noted fundus of the stomach. Few distended loops of small bowel. Minimal air in large bowel. Impression: Few distended loops of small bowel noted. NG tube in stomach.
--- NOTE | 2017-01-27 12:19 | Query-Anemia ---
Ryan Valero Date:_01/27/17 Load Out Worker/CDS:Jose Fernández Phone#:_[phone] Exercise your independent professional judgment when responding to this query. Questions asked do not imply a particular answer is desired or expected. We greatly appreciate your clarification on this issue. Clinical Documentation States: 51 Y/O Male admitted 01/26/17 for radical Cysto prostatectomy ileal conduit for bladder cancer. Procedure was performed 01/26/17. Clinical Findings Show: EBL: 650 mL Hgb: 13.2 down to 10.7 post surgery Hct: 40.8 to 33.9 Etiology: [ ] Anemia due to acute blood loss [ ] Anemia due to chronic blood loss [ ] Anemia secondary to ESRD [ ] Anemia secondary to neoplastic disease [ ] Iron deficiency anemia due to malabsorption [ ] GI Bleed from: [ ] Anemia of chronic disease ,Other: [ ] Precipitous Drop in Hemoglobin [ ] Precipitous Drop in Hematocrit [ ] Other: [ ] Unable to determine [ ] Comment/Explanation: Present on Admission: [ ] Yes (Y) [ ] Clinically undeterminable (W) [ ] No (N) Please also document response in your Progress Notes and/or Discharge Summary and indicate if the condition was present on admission. ALVA
--- NOTE | 2017-01-27 20:25 | Event Note ---
Date: 01/26/17 Consult dictated . See in reports
--- NOTE | 2017-01-27 20:27 | Progress Note ---
Assessment and Plan - Patient Problems (1) Primary bladder malignant neoplasm Onset Date: 06/01/16 Current Visit: No Status: Acute Subjective Date of service: 01/27/17 Principal diagnosis: bladder cancer Objective - Constitutional Vitals: Vital Signs - 12hr 01/27/17 01/27/17 01/27/17 08:30 08:41 08:51 Temperature Pulse Rate 93 H 91 H 92 H Respiratory 15 12 24 Rate Blood Pressure 102/55 102/55 107/62 O2 Sat by Pulse 98 98 99 Oximetry 01/27/17 01/27/17 01/27/17 09:00 09:11 09:21 Temperature Pulse Rate 94 H 93 H 95 H Respiratory 17 19 17 Rate Blood Pressure 81/43 81/43 89/43 O2 Sat by Pulse 98 97 98 Oximetry 01/27/17 01/27/17 01/27/17 09:30 09:41 09:51 Temperature Pulse Rate 99 H 96 H 95 H Respiratory 10 L 17 17 Rate Blood Pressure 82/40 82/40 102/63 O2 Sat by Pulse 98 98 98 Oximetry 01/27/17 01/27/17 01/27/17 10:00 10:11 10:21 Temperature Pulse Rate 100 H 98 H 106 H Respiratory 22 11 L 12 Rate Blood Pressure 96/62 96/62 103/60 O2 Sat by Pulse 95 95 95 Oximetry 01/27/17 01/27/17 01/27/17 10:30 10:41 10:51 Temperature Pulse Rate 106 H 97 H 103 H Respiratory 16 30 H 20 Rate Blood Pressure 111/61 111/61 102/47 O2 Sat by Pulse 94 98 98 Oximetry 01/27/17 01/27/17 01/27/17 11:00 11:11 11:21 Temperature Pulse Rate 99 H 100 H 102 H Respiratory 27 H 24 13 Rate Blood Pressure 96/49 96/49 96/49 O2 Sat by Pulse 95 95 94 Oximetry 01/27/17 01/27/17 01/27/17 11:30 11:41 11:51 Temperature Pulse Rate 95 H 97 H Respiratory 18 19 Rate Blood Pressure 105/68 105/68 97/62 O2 Sat by Pulse 94 95 93 Oximetry 01/27/17 01/27/17 01/27/17 12:00 12:11 12:21 Temperature 98.9 F Pulse Rate 95 H 93 H 92 H Respiratory 16 15 15 Rate Blood Pressure 102/60 102/60 98/63 O2 Sat by Pulse 91 91 91 Oximetry 01/27/17 01/27/17 01/27/17 12:30 12:32 12:41 Temperature Pulse Rate 96 H 96 H Respiratory 16 16 21 Rate Blood Pressure 94/60 94/60 O2 Sat by Pulse 93 95 Oximetry 01/27/17 01/27/17 01/27/17 12:51 13:00 13:11 Temperature Pulse Rate 91 H 90 96 H Respiratory 25 H 17 18 Rate Blood Pressure 91/53 89/47 89/47 O2 Sat by Pulse 95 93 94 Oximetry 01/27/17 01/27/17 01/27/17 13:21 13:30 13:41 Temperature Pulse Rate 92 H 92 H 95 H Respiratory 18 17 17 Rate Blood Pressure 89/47 102/60 102/60 O2 Sat by Pulse 96 95 Oximetry 01/27/17 01/27/17 01/27/17 13:51 14:00 14:11 Temperature Pulse Rate 88 88 90 Respiratory 18 19 22 Rate Blood Pressure 102/60 91/63 91/63 O2 Sat by Pulse 92 93 93 Oximetry 01/27/17 01/27/17 01/27/17 14:21 14:30 14:41 Temperature Pulse Rate 98 H 89 88 Respiratory 22 22 17 Rate Blood Pressure 90/62 92/64 92/64 O2 Sat by Pulse 91 93 93 Oximetry 01/27/17 01/27/17 01/27/17 14:51 15:00 15:11 Temperature Pulse Rate 89 89 87 Respiratory 14 18 16 Rate Blood Pressure 92/62 90/58 90/58 O2 Sat by Pulse 92 93 92 Oximetry 01/27/17 01/27/17 01/27/17 15:21 15:30 15:41 Temperature Pulse Rate 91 H 85 94 H Respiratory 15 14 13 Rate Blood Pressure 97/55 79/56 79/56 O2 Sat by Pulse 94 92 93 Oximetry 01/27/17 01/27/17 01/27/17 15:51 16:00 16:11 Temperature 99.1 F Pulse Rate 91 H 95 H 88 Respiratory 17 19 15 Rate Blood Pressure 94/66 91/58 91/58 O2 Sat by Pulse 95 93 91 Oximetry 01/27/17 01/27/17 01/27/17 16:21 16:30 16:41 Temperature Pulse Rate 88 96 H 90 Respiratory 19 19 18 Rate Blood Pressure 101/63 88/70 88/70 O2 Sat by Pulse 94 89 91 Oximetry 01/27/17 01/27/17 01/27/17 16:51 17:00 17:11 Temperature Pulse Rate 90 89 92 H Respiratory 17 22 11 L Rate Blood Pressure 83/56 100/69 100/69 O2 Sat by Pulse 92 93 93 Oximetry 01/27/17 01/27/17 01/27/17 17:21 17:31 17:41 Temperature Pulse Rate 89 94 H 94 H Respiratory 16 16 15 Rate Blood Pressure 100/69 100/69 100/69 O2 Sat by Pulse 92 93 92 Oximetry 01/27/17 01/27/17 01/27/17 17:51 18:00 18:11 Temperature Pulse Rate 92 H 95 H 92 H Respiratory 13 20 16 Rate Blood Pressure 100/69 106/66 106/66 O2 Sat by Pulse 93 92 92 Oximetry 01/27/17 01/27/17 01/27/17 18:21 18:31 18:41 Temperature Pulse Rate 96 H 94 H 99 H Respiratory 16 19 19 Rate Blood Pressure 106/66 106/66 106/66 O2 Sat by Pulse 92 92 92 Oximetry 01/27/17 01/27/17 01/27/17 19:59 20:06 20:09 Temperature 98.4 F Pulse Rate Respiratory Rate Blood Pressure O2 Sat by Pulse 90 90 Oximetry General appearance: Present: no acute distress, well-nourished - EENT Eyes: PERRL, EOM intact ENT: hearing intact, clear oral mucosa Ears: bilateral: normal - Neck Neck: supple, normal ROM - Respiratory Respiratory effort: normal Respiratory: bilateral: CTA - Breasts Breasts: normal - Cardiovascular Rhythm: regular Heart Sounds: Present: S1 & S2. Absent: gallop, rub Extremities: pulses intact, No edema, normal color, Full ROM - Gastrointestinal General gastrointestinal: Present: soft, non-tender, non-distended, normal bowel sounds - Genitourinary Male genitourinary: normal - Integumentary Integumentary: clear, warm, dry - Musculoskeletal Musculoskeletal: 1, strength equal bilaterally - Neurologic Neurologic: moves all extremities - Psychiatric Psychiatric: memory intact, appropriate mood/affect, intact judgment & insight - Labs CBC & Chem 7: 01/26/17 Unknown 03/15/17 Unknown Labs: Abnormal lab results 01/26/17 01/26/17 01/26/17 Range/Units 10:45 Unknown Unknown WBC 16.0 H (4.5-11.0) K/mm3 Hgb 10.7 L (11.8-15.2) gm/dl Hct 33.9 L (35.5-45.6) % MCH 27 L (28-32) pg RDW 15.7 H (13.2-15.2) % Seg Neuts % (Manual) 90.0 H (40.0-70.0) % Lymphocytes % (Manual) 5.0 L (13.4-35.0) % Seg Neutrophils # Man 14.4 H (1.8-7.7) K/mm3 Lymphocytes # (Manual) 0.8 L (1.2-5.4) K/mm3 Chloride 107.9 H (98-107) mmol/L Carbon Dioxide 19 L (22-30) mmol/L Glucose 147 H (75-100) mg/dL Calcium 7.3 L (8.4-10.2) mg/dL Crossmatch See Detail
--- NOTE | 2017-01-27 22:40 | Progress Note ---
Subjective Patient Reports: Positive: feels better, still having pain, no flatus Narrative: Doing fine , alert responsive , had to re insert NG tube , Urine adequate , sanguinous .will Keep npo ,bmp ok will check cxray , Objective Vital Signs - 12hr 01/27/17 01/27/17 01/27/17 10:41 10:51 11:00 Temperature Pulse Rate 97 H 103 H 99 H Respiratory 30 H 20 27 H Rate Blood Pressure 111/61 102/47 96/49 O2 Sat by Pulse 98 98 95 Oximetry 01/27/17 01/27/17 01/27/17 11:11 11:21 11:30 Temperature Pulse Rate 100 H 102 H 95 H Respiratory 24 13 18 Rate Blood Pressure 96/49 96/49 105/68 O2 Sat by Pulse 95 94 94 Oximetry 01/27/17 01/27/17 01/27/17 11:41 11:51 12:00 Temperature 98.9 F Pulse Rate 97 H 95 H Respiratory 19 16 Rate Blood Pressure 105/68 97/62 102/60 O2 Sat by Pulse 95 93 91 Oximetry 01/27/17 01/27/17 01/27/17 12:11 12:21 12:30 Temperature Pulse Rate 93 H 92 H 96 H Respiratory 15 15 16 Rate Blood Pressure 102/60 98/63 94/60 O2 Sat by Pulse 91 91 93 Oximetry 01/27/17 01/27/17 01/27/17 12:32 12:41 12:51 Temperature Pulse Rate 96 H 91 H Respiratory 16 21 25 H Rate Blood Pressure 94/60 91/53 O2 Sat by Pulse 95 95 Oximetry 01/27/17 01/27/17 01/27/17 13:00 13:11 13:21 Temperature Pulse Rate 90 96 H 92 H Respiratory 17 18 18 Rate Blood Pressure 89/47 89/47 89/47 O2 Sat by Pulse 93 94 96 Oximetry 01/27/17 01/27/17 01/27/17 13:30 13:41 13:51 Temperature Pulse Rate 92 H 95 H 88 Respiratory 17 17 18 Rate Blood Pressure 102/60 102/60 102/60 O2 Sat by Pulse 95 92 Oximetry 01/27/17 01/27/17 01/27/17 14:00 14:11 14:21 Temperature Pulse Rate 88 90 98 H Respiratory 19 22 22 Rate Blood Pressure 91/63 91/63 90/62 O2 Sat by Pulse 93 93 91 Oximetry 01/27/17 01/27/17 01/27/17 14:30 14:41 14:51 Temperature Pulse Rate 89 88 89 Respiratory 22 17 14 Rate Blood Pressure 92/64 92/64 92/62 O2 Sat by Pulse 93 93 92 Oximetry 01/27/17 01/27/17 01/27/17 15:00 15:11 15:21 Temperature Pulse Rate 89 87 91 H Respiratory 18 16 15 Rate Blood Pressure 90/58 90/58 97/55 O2 Sat by Pulse 93 92 94 Oximetry 01/27/17 01/27/17 01/27/17 15:30 15:41 15:51 Temperature Pulse Rate 85 94 H 91 H Respiratory 14 13 17 Rate Blood Pressure 79/56 79/56 94/66 O2 Sat by Pulse 92 93 95 Oximetry 01/27/17 01/27/17 01/27/17 16:00 16:11 16:21 Temperature 99.1 F Pulse Rate 95 H 88 88 Respiratory 19 15 19 Rate Blood Pressure 91/58 91/58 101/63 O2 Sat by Pulse 93 91 94 Oximetry 01/27/17 01/27/17 01/27/17 16:30 16:41 16:51 Temperature Pulse Rate 96 H 90 90 Respiratory 19 18 17 Rate Blood Pressure 88/70 88/70 83/56 O2 Sat by Pulse 89 91 92 Oximetry 01/27/17 01/27/17 01/27/17 17:00 17:11 17:21 Temperature Pulse Rate 89 92 H 89 Respiratory 22 11 L 16 Rate Blood Pressure 100/69 100/69 100/69 O2 Sat by Pulse 93 93 92 Oximetry 01/27/17 01/27/17 01/27/17 17:31 17:41 17:51 Temperature Pulse Rate 94 H 94 H 92 H Respiratory 16 15 13 Rate Blood Pressure 100/69 100/69 100/69 O2 Sat by Pulse 93 92 93 Oximetry 01/27/17 01/27/17 01/27/17 18:00 18:11 18:21 Temperature Pulse Rate 95 H 92 H 96 H Respiratory 20 16 16 Rate Blood Pressure 106/66 106/66 106/66 O2 Sat by Pulse 92 92 92 Oximetry 01/27/17 01/27/17 01/27/17 18:31 18:41 18:51 Temperature Pulse Rate 94 H 99 H 94 H Respiratory 19 19 18 Rate Blood Pressure 106/66 106/66 106/66 O2 Sat by Pulse 92 92 93 Oximetry 01/27/17 01/27/17 01/27/17 19:00 19:10 19:21 Temperature Pulse Rate 92 H 97 H 92 H Respiratory 16 16 22 Rate Blood Pressure 106/70 103/67 106/70 O2 Sat by Pulse 93 93 93 Oximetry 01/27/17 01/27/17 01/27/17 19:31 19:41 19:51 Temperature Pulse Rate 93 H 99 H 101 H Respiratory 19 19 14 Rate Blood Pressure 106/70 106/70 106/70 O2 Sat by Pulse 94 95 93 Oximetry 01/27/17 01/27/17 01/27/17 19:59 20:00 20:06 Temperature 98.4 F Pulse Rate 95 H Respiratory 16 Rate Blood Pressure 107/72 O2 Sat by Pulse 92 90 Oximetry 01/27/17 01/27/17 01/27/17 20:09 20:11 20:21 Temperature Pulse Rate 93 H 89 Respiratory 17 18 Rate Blood Pressure 107/72 107/72 O2 Sat by Pulse 90 97 99 Oximetry 01/27/17 01/27/17 01/27/17 20:31 20:41 20:51 Temperature Pulse Rate 92 H 93 H 95 H Respiratory 19 17 19 Rate Blood Pressure 107/72 107/72 107/72 O2 Sat by Pulse 99 98 98 Oximetry 01/27/17 01/27/17 01/27/17 21:00 21:11 21:21 Temperature Pulse Rate 95 H 96 H 96 H Respiratory 18 15 22 Rate Blood Pressure 112/71 112/71 112/71 O2 Sat by Pulse 98 98 98 Oximetry - Labs 01/26/17 Unknown 01/26/17 Unknown
[2017-01-28] MEDS: ANCEF/NS 1 GM/50 ML 1 GM/50 ML BAG IV SCH ×2 (01:44→14:00)
[2017-01-28] MEDS: PEPCID IV SCH ×2 (01:47→22:32)
[2017-01-28] MEDS: D5W/0.45% NACL/KCL 20 MEQ 20 MEQ/1,000 ML BAG IV SCH (05:24)
[2017-01-28] MEDS: MORPHINE IV PRN (07:04)
[2017-01-28] MEDS: ZOFRAN IV PRN (07:04)
--- NOTE | 2017-01-28 09:44 | Progress Note ---
Assessment and Plan 51 y/o male s/p radical cysto prostatectomy ileal conduit . 1. Follow up Surgery and Urology recs. 2. Will order IS to bedside 3. Transfer today? Subjective Date of service: 01/28/17 Principal diagnosis: bladder cancer Interval history: No acute events. Asleep this am. Pain appears to be under better control. Objective - Constitutional Vitals: Vital Signs - 12hr 01/27/17 01/27/17 01/27/17 21:51 22:00 22:11 Temperature Pulse Rate 94 H 97 H 96 H Respiratory 14 21 18 Rate Blood Pressure 112/71 116/73 116/73 O2 Sat by Pulse 98 98 98 Oximetry 01/27/17 01/27/17 01/27/17 22:21 22:31 22:41 Temperature Pulse Rate 97 H 94 H 100 H Respiratory 15 22 14 Rate Blood Pressure 116/73 116/73 116/73 O2 Sat by Pulse 98 98 97 Oximetry 01/27/17 01/27/17 01/27/17 22:51 23:00 23:11 Temperature Pulse Rate 93 H 94 H 95 H Respiratory 13 20 20 Rate Blood Pressure 116/73 102/69 116/73 O2 Sat by Pulse 98 98 98 Oximetry 01/27/17 01/27/17 01/27/17 23:21 23:31 23:41 Temperature Pulse Rate 96 H 95 H 93 H Respiratory 15 15 18 Rate Blood Pressure 116/73 116/73 116/73 O2 Sat by Pulse 98 98 98 Oximetry 01/27/17 01/28/17 01/28/17 23:51 00:00 00:11 Temperature 99.1 F Pulse Rate 99 H 94 H 94 H Respiratory 17 17 19 Rate Blood Pressure 116/73 115/73 115/73 O2 Sat by Pulse 97 98 98 Oximetry 01/28/17 01/28/17 01/28/17 00:13 00:21 00:31 Temperature Pulse Rate 90 95 H 91 H Respiratory 14 13 12 Rate Blood Pressure 115/73 115/73 115/73 O2 Sat by Pulse 98 97 98 Oximetry 01/28/17 01/28/17 01/28/17 00:41 00:51 01:00 Temperature Pulse Rate 92 H 91 H 93 H Respiratory 14 15 19 Rate Blood Pressure 115/73 115/73 109/71 O2 Sat by Pulse 98 98 98 Oximetry 03/01/28/17 01/28/17 01:11 01:20 01:30 Temperature Pulse Rate 94 H 98 H 105 H Respiratory 13 20 20 Rate Blood Pressure 109/71 109/71 109/71 O2 Sat by Pulse 97 99 98 Oximetry 01/28/17 01/28/17 01/28/17 01:40 01:50 02:00 Temperature Pulse Rate 95 H 98 H 94 H Respiratory 18 16 14 Rate Blood Pressure 109/71 109/71 104/65 O2 Sat by Pulse 99 98 98 Oximetry 01/28/17 01/28/17 01/28/17 02:10 02:20 02:30 Temperature Pulse Rate 97 H 94 H 97 H Respiratory 16 13 20 Rate Blood Pressure 104/65 104/65 104/65 O2 Sat by Pulse 98 98 99 Oximetry 01/28/17 01/28/17 01/28/17 02:40 02:50 03:00 Temperature Pulse Rate 93 H 96 H 94 H Respiratory 12 21 13 Rate Blood Pressure 104/65 104/65 106/70 O2 Sat by Pulse 98 99 99 Oximetry 01/28/17 01/28/17 01/28/17 03:10 03:20 03:30 Temperature Pulse Rate 88 94 H 91 H Respiratory 11 L 13 16 Rate Blood Pressure 106/70 106/70 106/70 O2 Sat by Pulse 98 96 98 Oximetry 01/28/17 01/28/17 01/28/17 03:40 03:50 04:00 Temperature 98.3 F Pulse Rate 103 H 93 H 95 H Respiratory 16 12 16 Rate Blood Pressure 106/70 106/70 111/75 O2 Sat by Pulse 98 99 98 Oximetry 01/28/17 01/28/17 01/28/17 04:10 04:20 04:30 Temperature Pulse Rate 94 H 93 H 99 H Respiratory 13 13 13 Rate Blood Pressure 111/75 106/70 106/70 O2 Sat by Pulse 98 98 98 Oximetry 01/28/17 01/28/17 01/28/17 04:40 04:50 05:00 Temperature Pulse Rate 93 H 96 H 95 H Respiratory 17 13 11 L Rate Blood Pressure 106/70 106/70 109/75 O2 Sat by Pulse 97 99 99 Oximetry 01/28/17 01/28/17 01/28/17 05:10 05:20 05:30 Temperature Pulse Rate 101 H 103 H 96 H Respiratory 16 21 13 Rate Blood Pressure 109/75 109/75 109/75 O2 Sat by Pulse 98 97 98 Oximetry 01/28/17 01/28/17 01/28/17 05:40 05:50 06:00 Temperature Pulse Rate 97 H 97 H 103 H Respiratory 12 13 14 Rate Blood Pressure 109/75 109/75 107/76 O2 Sat by Pulse 99 95 95 Oximetry 01/28/17 01/28/17 01/28/17 06:10 06:20 06:30 Temperature Pulse Rate 104 H 103 H 105 H Respiratory 21 16 14 Rate Blood Pressure 107/76 107/76 107/76 O2 Sat by Pulse 97 96 93 Oximetry 01/28/17 01/28/17 01/28/17 06:40 06:50 07:00 Temperature Pulse Rate 106 H 101 H 105 H Respiratory 14 Rate Blood Pressure 107/76 107/76 112/75 O2 Sat by Pulse 93 95 94 Oximetry 01/28/17 01/28/17 01/28/17 07:10 07:20 07:30 Temperature Pulse Rate 102 H 103 H 100 H Respiratory Rate Blood Pressure 112/75 112/75 112/75 O2 Sat by Pulse 96 94 96 Oximetry 01/28/17 01/28/17 07:40 08:00 Temperature 99.7 F H Pulse Rate Respiratory Rate Blood Pressure O2 Sat by Pulse 95 Oximetry General appearance: Present: no acute distress, other (NG tube in place) - EENT Eyes: PERRL, EOM intact ENT: hearing intact, clear oral mucosa, dentition normal - Neck Neck: supple, normal ROM - Respiratory Respiratory effort: normal Respiratory: bilateral: CTA - Labs CBC & Chem 7: 01/26/17 Unknown 01/26/17 Unknown
--- NOTE | 2017-01-28 12:22 | Progress Note ---
Subjective Date of service: 01/28/17 Principal diagnosis: bladder cancer Interval history: s/p cystectomy with conduit 01-26-17 (Bryce/Jhoana/Jemma) NGT intact still with pain conduit with blood tinged urine H/H trending down - recheck tomorrow? transfusion no bowel sound up in chair tomorrow Objective - Constitutional Vitals: Vital Signs - 12hr 01/28/17 01/28/17 01/28/17 00:21 00:31 00:41 Temperature Pulse Rate 95 H 91 H 92 H Respiratory 13 12 14 Rate Blood Pressure 115/73 115/73 115/73 O2 Sat by Pulse 97 98 98 Oximetry 01/28/17 01/28/17 01/28/17 00:51 01:00 01:11 Temperature Pulse Rate 91 H 93 H 94 H Respiratory 15 19 13 Rate Blood Pressure 115/73 109/71 109/71 O2 Sat by Pulse 98 98 97 Oximetry 01/28/17 01/28/17 01/28/17 01:20 01:30 01:40 Temperature Pulse Rate 98 H 105 H 95 H Respiratory 20 20 18 Rate Blood Pressure 109/71 109/71 109/71 O2 Sat by Pulse 99 98 99 Oximetry 01/28/17 01/28/17 01/28/17 01:50 02:00 02:10 Temperature Pulse Rate 98 H 94 H 97 H Respiratory 16 14 16 Rate Blood Pressure 109/71 104/65 104/65 O2 Sat by Pulse 98 98 98 Oximetry 01/28/17 01/28/17 01/28/17 02:20 02:30 02:40 Temperature Pulse Rate 94 H 97 H 93 H Respiratory 13 20 12 Rate Blood Pressure 104/65 104/65 104/65 O2 Sat by Pulse 98 99 98 Oximetry 01/28/17 01/28/17 01/28/17 02:50 03:00 03:10 Temperature Pulse Rate 96 H 94 H 88 Respiratory 21 13 11 L Rate Blood Pressure 104/65 106/70 106/70 O2 Sat by Pulse 99 99 98 Oximetry 01/28/17 01/28/17 01/28/17 03:20 03:30 03:40 Temperature Pulse Rate 94 H 91 H 103 H Respiratory 13 16 16 Rate Blood Pressure 106/70 106/70 106/70 O2 Sat by Pulse 96 98 98 Oximetry 01/28/17 01/28/1701/28/17 03:50 04:00 04:10 Temperature 98.3 F Pulse Rate 93 H 95 H 94 H Respiratory 12 16 13 Rate Blood Pressure 106/70 111/75 111/75 O2 Sat by Pulse 99 98 98 Oximetry 01/28/17 01/28/17 01/28/17 04:20 04:30 04:40 Temperature Pulse Rate 93 H 99 H 93 H Respiratory 13 13 17 Rate Blood Pressure 106/70 106/70 106/70 O2 Sat by Pulse 98 98 97 Oximetry 01/28/17 01/28/17 01/28/17 04:50 05:00 05:10 Temperature Pulse Rate 96 H 95 H 101 H Respiratory 13 11 L 16 Rate Blood Pressure 106/70 109/75 109/75 O2 Sat by Pulse 99 99 98 Oximetry 01/28/17 01/28/17 01/28/17 05:20 05:30 05:40 Temperature Pulse Rate 103 H 96 H 97 H Respiratory 21 13 12 Rate Blood Pressure 109/75 109/75 109/75 O2 Sat by Pulse 97 98 99 Oximetry 01/28/17 01/28/17 01/28/17 05:50 06:00 06:10 Temperature Pulse Rate 97 H 103 H 104 H Respiratory 13 14 21 Rate Blood Pressure 109/75 107/76 107/76 O2 Sat by Pulse 95 95 97 Oximetry 01/28/17 01/28/17 01/28/17 06:20 06:30 06:40 Temperature Pulse Rate 103 H 105 H 106 H Respiratory 16 14 14 Rate Blood Pressure 107/76 107/76 107/76 O2 Sat by Pulse 96 93 93 Oximetry 01/28/17 01/28/17 01/28/17 06:50 07:00 07:10 Temperature Pulse Rate 101 H 105 H 102 H Respiratory Rate Blood Pressure 107/76 112/75 112/75 O2 Sat by Pulse 95 94 96 Oximetry 01/28/17 01/28/17 01/28/17 07:20 07:30 07:40 Temperature Pulse Rate 103 H 100 H Respiratory Rate Blood Pressure 112/75 112/75 O2 Sat by Pulse 94 96 95 Oximetry 01/28/17 08:00 Temperature 99.7 F H Pulse Rate Respiratory Rate Blood Pressure O2 Sat by Pulse Oximetry - Labs CBC & Chem 7: 01/26/17 Unknown 01/26/17 Unknown
[2017-01-28] MEDS ORDERED: ANCEF/NS 1 GM/50 ML 1 GM/50 ML BAG IV ONE (13:21)
[2017-01-28] MEDS: DILAUDID PCA 6MG/30ML IV SCH (14:00)
--- NOTE | 2017-01-28 15:32 | Progress Note ---
Subjective Patient Reports: Positive: feels better, still having pain, pain is less, no flatus, afebrile Narrative: doing OK , stable , abd soft benign urine 1700cc blood tinged , will ambulate , Objective Vital Signs - 12hr 01/28/17 01/28/17 01/28/17 03:40 03:50 04:00 Temperature 98.3 F Pulse Rate 103 H 93 H 95 H Respiratory 16 12 16 Rate Blood Pressure 106/70 106/70 111/75 O2 Sat by Pulse 98 99 98 Oximetry 01/28/17 01/28/17 01/28/17 04:10 04:20 04:30 Temperature Pulse Rate 94 H 93 H 99 H Respiratory 13 13 13 Rate Blood Pressure 111/75 106/70 106/70 O2 Sat by Pulse 98 98 98 Oximetry 01/28/17 01/28/17 01/28/17 04:40 04:50 05:00 Temperature Pulse Rate 93 H 96 H 95 H Respiratory 17 13 11 L Rate Blood Pressure 106/70 106/70 109/75 O2 Sat by Pulse 97 99 99 Oximetry 01/28/17 01/28/17 01/28/17 05:10 05:20 05:30 Temperature Pulse Rate 101 H 103 H 96 H Respiratory 16 21 13 Rate Blood Pressure 109/75 109/75 109/75 O2 Sat by Pulse 98 97 98 Oximetry 01/28/17 01/28/17 01/28/17 05:40 05:50 06:00 Temperature Pulse Rate 97 H 97 H 103 H Respiratory 12 13 14 Rate Blood Pressure 109/75 109/75 107/76 O2 Sat by Pulse 99 95 95 Oximetry 01/28/17 01/28/17 01/28/17 06:10 06:20 06:30 Temperature Pulse Rate 104 H 103 H 105 H Respiratory 21 16 14 Rate Blood Pressure 107/76 107/76 107/76 O2 Sat by Pulse 97 96 93 Oximetry 01/28/17 01/28/17 01/28/17 06:40 06:50 07:00 Temperature Pulse Rate 106 H 101 H 105 H Respiratory 14 Rate Blood Pressure 107/76 107/76 112/75 O2 Sat by Pulse 93 95 94 Oximetry 01/28/17 01/28/17 01/28/17 07:10 07:20 07:30 Temperature Pulse Rate 102 H 103 H 100 H Respiratory Rate Blood Pressure 112/75 112/75 112/75 O2 Sat by Pulse 96 94 96 Oximetry 01/28/17 01/28/17 01/28/17 07:40 08:00 09:00 Temperature 99.7 F H Pulse Rate 99 H 95 H Respiratory Rate Blood Pressure 115/74 94/54 O2 Sat by Pulse 95 93 96 Oximetry 01/28/17 01/28/17 01/28/17 10:00 11:00 12:00 Temperature 99.2 F Pulse Rate 96 H 100 H 96 H Respiratory 17 14 Rate Blood Pressure 109/69 112/79 127/82 O2 Sat by Pulse 94 94 96 Oximetry 01/28/17 01/28/17 01/28/17 13:00 14:00 15:00 Temperature Pulse Rate 94 H 110 H 117 H Respiratory 17 19 32 H Rate Blood Pressure 129/80 129/80 143/117 O2 Sat by Pulse 95 94 Oximetry - Labs 01/26/17 Unknown 01/26/17 Unknown
--- NOTE | 2017-01-28 18:33 | Progress Note ---
Assessment and Plan Assessment and plan: --Status post cystectomy/prostatectomy/ileal conduit Management per urology and surgery Continue pain medications, NG tube placement and nothing by mouth Supportive care --Anemia Mild drop in hemoglobin from 13-10 Closely monitor transfuse as needed --Continue postoperative care --DVT prophylaxis No pharmacologic anticoagulation as patient is postop Continue SCDs Patient's condition treatment plan discussed in detail with the patient as well as his nurse Consults and recommendations noted and appreciated History Interval history: Patient seen and evaluated medical records reviewed No new events reported by the nursing staff, patient feels slightly better No new complaints Alert and awake responding appropriately not in acute distress Vital signs reviewed Plaints of abdominal pain, did not pass flatus Hospitalist Physical - Constitutional Vitals: Temp Pulse Resp BP Pulse Ox 99.2 F 117 H 32 H 143/117 94 01/28/17 12:00 01/28/17 15:00 01/28/17 15:00 01/28/17 15:00 01/28/17 15:00 General appearance: Present: no acute distress, other (NG tube in place) - EENT Eyes: Present: PERRL, EOM intact - Neck Neck: Present: supple, normal ROM - Respiratory Respiratory effort: normal Respiratory: bilateral: diminished, negative: rales, rhonchi, wheezing - Cardiovascular Rhythm: regular Heart Sounds: Present: S1 & S2 - Extremities Extremities: no ischemia, pulses intact, pulses symmetrical Peripheral Pulses: within normal limits - Abdominal General gastrointestinal: soft, tender (mild tenderness), distended, absent bowel sounds - Integumentary Integumentary: Present: clear, warm - Psychiatric Psychiatric: appropriate mood/affect, cooperative - Neurologic Neurologic: CNII-XII intact, moves all extremities Results - Labs CBC & Chem 7: 01/26/17 Unknown 01/26/17 Unknown Labs: Laboratory Last Values WBC 16.0 K/mm3 (4.5-11.0) H 01/26/17 Unknown RBC 3.94 M/mm3 (3.65-5.03) 01/26/17 Unknown Hgb 10.7 gm/dl (11.8-15.2) L 01/26/17 Unknown Hct 33.9 % (35.5-45.6) L 01/26/17 Unknown MCV 86 fl (84-94) 01/26/17 Unknown MCH 27 pg (28-32) L 01/26/17 Unknown MCHC 32 % (32-34) 01/26/17 Unknown RDW 15.7 % (13.2-15.2) H 01/26/17 Unknown Plt Count 174 K/mm3 (140-440) 01/26/17 Unknown Add Manual Diff Complete 01/26/17 Unknown Total Counted 100 01/26/17 Unknown Seg Neutrophils % Operating Room Assistant 01/26/17 Unknown Seg Neuts % (Manual) 90.0 % (40.0-70.0) H 01/26/17 Unknown Band Neutrophils % 0 % 01/26/17 Unknown Lymphocytes % (Manual) 5.0 % (13.4-35.0) L 01/26/17 Unknown Reactive Lymphs % (Man) 0 % 01/26/17 Unknown Monocytes % (Manual) 5.0 % (0.0-7.3) 01/26/17 Unknown Eosinophils % (Manual) 0 % (0.0-4.3) 01/26/17 Unknown Basophils % (Manual) 0 % (0.0-1.8) 01/26/17 Unknown Metamyelocytes % 0 % 01/26/17 Unknown Myelocytes % 0 % 01/26/17 Unknown Promyelocytes % 0 % 01/26/17 Unknown Blast Cells % 0 % 01/26/17 Unknown Nucleated RBC % Not Reportable 01/26/17 Unknown Seg Neutrophils # Man 14.4 K/mm3 (1.8-7.7) H 01/26/17 Unknown Band Neutrophils # 0.0 K/mm3 01/26/17 Unknown Lymphocytes # (Manual) 0.8 K/mm3 (1.2-5.4) L 01/26/17 Unknown Abs React Lymphs (Man) 0.0 K/mm3 01/26/17 Unknown Monocytes # (Manual) 0.8 K/mm3 (0.0-0.8) 01/26/17 Unknown Eosinophils # (Manual) 0.0 K/mm3 (0.0-0.4) 01/26/17 Unknown Basophils # (Manual) 0.0 K/mm3 (0.0-0.1) 01/26/17 Unknown Metamyelocytes # 0.0 K/mm3 01/26/17 Unknown Myelocytes # 0.0 K/mm3 01/26/17 Unknown Promyelocytes # 0.0 K/mm3 01/26/17 Unknown Blast Cells # 0.0 K/mm3 01/26/17 Unknown WBC Morphology Not Reportable 01/26/17 Unknown Hypersegmented Neuts Not Reportable 01/26/17 Unknown Hyposegmented Neuts Not Reportable 01/26/17 Unknown Hypogranular Neuts Not Reportable 01/26/17 Unknown Smudge Cells Not Reportable 01/26/17 Unknown Toxic Granulation Not Reportable 01/26/17 Unknown Toxic Vacuolation Not Reportable 01/26/17 Unknown Dohle Bodies Not Reportable 01/26/17 Unknown Pelger-Huet Anomaly Not Reportable 01/26/17 Unknown Sara Rods Not Reportable 01/26/17 Unknown Platelet Estimate Consistent w auto 01/26/17 Unknown Clumped Platelets Not Reportable 01/26/17 Unknown Plt Clumps, EDTA Not Reportable 01/26/17 Unknown Large Platelets Not Reportable 01/26/17 Unknown Giant Platelets Not Reportable 01/26/17 Unknown Platelet Satelliting Not Reportable 01/26/17 Unknown Plt Morphology Comment Not Reportable 01/26/17 Unknown RBC Morphology Not Reportable 01/26/17 Unknown Dimorphic RBCs Not Reportable 01/26/17 Unknown Polychromasia Not Reportable 01/26/17 Unknown Hypochromasia Not Reportable 01/26/17 Unknown Poikilocytosis Not Reportable 01/26/17 Unknown Anisocytosis 1+ 01/26/17 Unknown Microcytosis Not Reportable 01/26/17 Unknown Macrocytosis Not Reportable 01/26/17 Unknown Spherocytes Not Reportable 01/26/17 Unknown Pappenheimer Bodies Not Reportable 01/26/17 Unknown Sickle Cells Not Reportable 01/26/17 Unknown Target Cells Not Reportable 01/26/17 Unknown Tear Drop Cells Not Reportable 01/26/17 Unknown Ovalocytes Not Reportable 01/26/17 Unknown Helmet Cells Not Reportable 01/26/17 Unknown Atkinson-[place] Bodies Not Reportable 01/26/17 Unknown [place] Rings Not Reportable 01/26/17 Unknown Davin Cells Not Reportable 01/26/17 Unknown Bite Cells Not Reportable 01/26/17 Unknown Crenated Cell Not Reportable 01/26/17 Unknown Elliptocytes Not Reportable 01/26/17 Unknown Acanthocytes (Spur) Not Reportable 01/26/17 Unknown Rouleaux Not Reportable 01/26/17 Unknown Hemoglobin C Crystals Not Reportable 01/26/17 Unknown Schistocytes Not Reportable 01/26/17 Unknown Malaria parasites Not Reportable 01/26/17 Unknown Juan M Bodies Not Reportable 01/26/17 Unknown Hem Pathologist Commnt No 01/26/17 Unknown PT 14.9 Sec. (12.2-14.9) 01/26/17 17:53 INR 1.18 (0.87-1.13) H 01/26/17 17:53 APTT 24.9 Sec. (24.2-36.6) 01/26/17 17:53 Sodium 139 mmol/L (137-145) 01/26/17 Unknown Potassium 4.0 mmol/L (3.6-5.0) D 01/26/17 Unknown Chloride 107.9 mmol/L (98-107) H 01/26/17 Unknown Carbon Dioxide 19 mmol/L (22-30) L 01/26/17 Unknown Anion Gap 16 mmol/L 01/26/17 Unknown BUN 13 mg/dL (9-20) 01/26/17 Unknown Creatinine 1.0 mg/dL (0.8-1.5) 01/26/17 Unknown Estimated GFR > 60 ml/min 01/26/17 Unknown BUN/Creatinine Ratio 13.00 % 01/26/17 Unknown Glucose 147 mg/dL (75-100) H 01/26/17 Unknown Calcium 7.3 mg/dL (8.4-10.2) L 01/26/17 Unknown Total Bilirubin 0.3 mg/dL (0.1-1.2) 01/21/17 09:30 AST 45 units/L (5-40) H 01/21/17 09:30 ALT 62 units/L (7-56) H 01/21/17 09:30 Alkaline Phosphatase 57 units/L (35-129) 01/21/17 09:30 Total Protein 6.9 g/dL (6.3-8.2) 01/21/17 09:30 Albumin 3.5 g/dL (3.9-5) L 01/21/17 09:30 Albumin/Globulin Ratio 1.0 % 01/21/17 09:30 Blood Type O POSITIVE 01/26/17 10:45 Antibody Screen Negative 01/26/17 10:45 Crossmatch See Detail 01/26/17 10:45
[2017-01-28] MEDS: REGLAN IV PRN (22:20)
[2017-01-29] MEDS: PEPCID IV SCH ×3 (02:17→22:21)
[2017-01-29] MEDS: D5W/0.45% NACL/KCL 20 MEQ 20 MEQ/1,000 ML BAG IV SCH ×3 (02:28→20:47)
[2017-01-29] MEDS: ANCEF/NS 1 GM/50 ML 1 GM/50 ML BAG IV SCH ×2 (02:33→10:43)
[2017-01-29] MEDS: DILAUDID PCA 6MG/30ML IV SCH ×2 (04:24→13:51)
[2017-01-29 06:03] LABS: Basophils % (Auto) 0.5 % (0.0-1.8); Eosinophils % (Auto) 3.4 % (0.0-4.3); Hemoglobin 9.5 gm/dl (11.8-15.2); Mean Corpuscular HGB Conc 32 % (32-34); Mean Corpuscular Hemoglobin 27 pg (28-32); Mean Corpuscular Volume 85 fl (84-94); Platelet Count 144 K/mm3 (140-440); Red Blood Count 3.52 M/mm3 (3.65-5.03); Red Cell Distribution Width 15.1 % (13.2-15.2); White Blood Count 11.4 K/mm3 (4.5-11.0)
[2017-01-29 06:06] LABS: Anion Gap 14 mmol/L; Blood Urea Nitrogen 7 mg/dL (9-20); Calcium 7.8 mg/dL (8.4-10.2); Carbon Dioxide 23 mmol/L (22-30); Chloride 103.5 mmol/L (98-107); Glucose 108 mg/dL (75-100); Potassium 3.9 mmol/L (3.6-5.0); Sodium 137 mmol/L (137-145)
--- NOTE | 2017-01-29 08:06 | Progress Note ---
Assessment and Plan Assessment and plan: --Status post radical cystectomy, prostatectomy and ileal conduit Continue postoperative care, urology and surgery following Patient continues to have NG tube nothing by mouth status Supportive care --Hypertension Significant improvement on IV fluids, closely monitor --Anemia Mild drop post surgery, closely monitor transfuse as needed --DVT prophylaxis SCDs, no pharmacologic anticoagulation in view of postoperative state Out of bed to chair as tolerated Consults and recommendations noted and appreciated Patient is stable enough to be transferred out of ICU Plan of care discussed with the patient as well as the nurse History Interval history: Patient seen and evaluated this morning in his room in ICU , medical records reviewed No new events reported by the nursing staff Patient feels slightly better, denies any chest pain shortness of breath Did not have flatulence, blood pressures on the borderline Alert awake oriented 3 not in acute distress Hospitalist Physical - Constitutional Vitals: Temp Pulse Resp BP Pulse Ox 98.8 F 90 12 95/52 93 01/29/17 04:00 01/29/17 06:00 01/29/17 06:00 01/29/17 06:00 01/29/17 07:38 General appearance: Present: no acute distress, well-nourished, other (NG tube in place) - EENT Eyes: Present: PERRL, EOM intact - Neck Neck: Present: supple, normal ROM - Respiratory Respiratory effort: normal Respiratory: bilateral: diminished, negative: rales, rhonchi, wheezing - Cardiovascular Rhythm: regular Heart Sounds: Present: S1 & S2 - Extremities Extremities: no ischemia, pulses intact, pulses symmetrical - Abdominal General gastrointestinal: soft, distended (mild), absent bowel sounds - Integumentary Integumentary: Present: clear, warm - Psychiatric Psychiatric: appropriate mood/affect, cooperative - Neurologic Neurologic: CNII-XII intact, moves all extremities Results - Labs CBC & Chem 7: 01/29/17 04:28 01/29/17 04:28 Labs: Laboratory Last Values WBC 11.4 K/mm3 (4.5-11.0) H 01/29/17 04:28 RBC 3.52 M/mm3 (3.65-5.03) L 01/29/17 04:28 Hgb 9.5 gm/dl (11.8-15.2) L 01/29/17 04:28 Hct 30.0 % (35.5-45.6) L 01/29/17 04:28 MCV 85 fl (84-94) 01/29/17 04:28 MCH 27 pg (28-32) L 01/29/17 04:28 MCHC 32 % (32-34) 01/29/17 04:28 RDW 15.1 % (13.2-15.2) 01/29/17 04:28 Plt Count 144 K/mm3 (140-440) 01/29/17 04:28 Lymph % (Auto) 14.6 % (13.4-35.0) 01/29/17 04:28 [place] % (Auto) 9.8 % (0.0-7.3) H 01/29/17 04:28 Eos % (Auto) 3.4 % (0.0-4.3) 01/29/17 04:28 Baso % (Auto) 0.5 % (0.0-1.8) 01/29/17 04:28 Lymph # 1.7 K/mm3 (1.2-5.4) 01/29/17 04:28 [place] # 1.1 K/mm3 (0.0-0.8) H 01/29/17 04:28 Eos # 0.4 K/mm3 (0.0-0.4) 01/29/17 04:28 Baso # 0.1 K/mm3 (0.0-0.1) 01/29/17 04:28 Add Manual Diff Complete 01/26/17 Unknown Total Counted 100 01/26/17 Unknown Seg Neutrophils % 71.7 % (40.0-70.0) H 01/29/17 04:28 Seg Neuts % (Manual) 90.0 % (40.0-70.0) H 01/26/17 Unknown Band Neutrophils % 0 % 01/26/17 Unknown Lymphocytes % (Manual) 5.0 % (13.4-35.0) L 01/26/17 Unknown Reactive Lymphs % (Man) 0 % 01/26/17 Unknown Monocytes % (Manual) 5.0 % (0.0-7.3) 01/26/17 Unknown Eosinophils % (Manual) 0 % (0.0-4.3) 01/26/17 Unknown Basophils % (Manual) 0 % (0.0-1.8) 01/26/17 Unknown Metamyelocytes % 0 % 01/26/17 Unknown Myelocytes % 0 % 01/26/17 Unknown Promyelocytes % 0 % 01/26/17 Unknown Blast Cells % 0 % 01/26/17 Unknown Nucleated RBC % Not Reportable 01/26/17 Unknown Seg Neutrophils # 8.2 K/mm3 (1.8-7.7) H 01/29/17 04:28 Seg Neutrophils # Man 14.4 K/mm3 (1.8-7.7) H 01/26/17 Unknown Band Neutrophils # 0.0 K/mm3 01/26/17 Unknown Lymphocytes # (Manual) 0.8 K/mm3 (1.2-5.4) L 01/26/17 Unknown Abs React Lymphs (Man) 0.0 K/mm3 01/26/17 Unknown Monocytes # (Manual) 0.8 K/mm3 (0.0-0.8) 01/26/17 Unknown Eosinophils # (Manual) 0.0 K/mm3 (0.0-0.4) 01/26/17 Unknown Basophils # (Manual) 0.0 K/mm3 (0.0-0.1) 01/26/17 Unknown Metamyelocytes # 0.0 K/mm3 01/26/17 Unknown Myelocytes # 0.0 K/mm3 01/26/17 Unknown Promyelocytes # 0.0 K/mm3 01/26/17 Unknown Blast Cells # 0.0 K/mm3 01/26/17 Unknown WBC Morphology Not Reportable 01/26/17 Unknown Hypersegmented Neuts Not Reportable 01/26/17 Unknown Hyposegmented Neuts Not Reportable 01/26/17 Unknown Hypogranular Neuts Not Reportable 01/26/17 Unknown Smudge Cells Not Reportable 01/26/17 Unknown Toxic Granulation Not Reportable 01/26/17 Unknown Toxic Vacuolation Not Reportable 01/26/17 Unknown Dohle Bodies Not Reportable 01/26/17 Unknown Pelger-Huet Anomaly Not Reportable 01/26/17 Unknown Sara Rods Not Reportable 01/26/17 Unknown Platelet Estimate Consistent w auto 01/26/17 Unknown Clumped Platelets Not Reportable 01/26/17 Unknown Plt Clumps, EDTA Not Reportable 01/26/17 Unknown Large Platelets Not Reportable 01/26/17 Unknown Giant Platelets Not Reportable 01/26/17 Unknown Platelet Satelliting Not Reportable 01/26/17 Unknown Plt Morphology Comment Not Reportable 01/26/17 Unknown RBC Morphology Not Reportable 01/26/17 Unknown Dimorphic RBCs Not Reportable 01/26/17 Unknown Polychromasia Not Reportable 01/26/17 Unknown Hypochromasia Not Reportable 01/26/17 Unknown Poikilocytosis Not Reportable 01/26/17 Unknown Anisocytosis 1+ 01/26/17 Unknown Microcytosis Not Reportable 01/26/17 Unknown Macrocytosis Not Reportable 01/26/17 Unknown Spherocytes Not Reportable 01/26/17 Unknown Pappenheimer Bodies Not Reportable 01/26/17 Unknown Sickle Cells Not Reportable 01/26/17 Unknown Target Cells Not Reportable 01/26/17 Unknown Tear Drop Cells Not Reportable 01/26/17 Unknown Ovalocytes Not Reportable 01/26/17 Unknown Helmet Cells Not Reportable 01/26/17 Unknown Atkinson-[place] Bodies Not Reportable 01/26/17 Unknown [place] Rings Not Reportable 01/26/17 Unknown Davin Cells Not Reportable 01/26/17 Unknown Bite Cells Not Reportable 01/26/17 Unknown Crenated Cell Not Reportable 01/26/17 Unknown Elliptocytes Not Reportable 01/26/17 Unknown Acanthocytes (Spur) Not Reportable 01/26/17 Unknown Rouleaux Not Reportable 01/26/17 Unknown Hemoglobin C Crystals Not Reportable 01/26/17 Unknown Schistocytes Not Reportable 01/26/17 Unknown Malaria parasites Not Reportable 01/26/17 Unknown Juan M Bodies Not Reportable 01/26/17 Unknown Hem Pathologist Commnt No 01/26/17 Unknown PT 14.9 Sec. (12.2-14.9) 01/26/17 17:53 INR 1.18 (0.87-1.13) H 01/26/17 17:53 APTT 24.9 Sec. (24.2-36.6) 01/26/17 17:53 Sodium 137 mmol/L (137-145) 01/29/17 04:28 Potassium 3.9 mmol/L (3.6-5.0) 01/29/17 04:28 Chloride 103.5 mmol/L (98-107) 01/29/17 04:28 Carbon Dioxide 23 mmol/L (22-30) 01/29/17 04:28 Anion Gap 14 mmol/L 01/29/17 04:28 BUN 7 mg/dL (9-20) L 01/29/17 04:28 Creatinine 1.0 mg/dL (0.8-1.5) 01/29/17 04:28 Estimated GFR > 60 ml/min 01/29/17 04:28 BUN/Creatinine Ratio 7.00 % 01/29/17 04:28 Glucose 108 mg/dL (75-100) H 01/29/17 04:28 Calcium 7.8 mg/dL (8.4-10.2) L 01/29/17 04:28 Total Bilirubin 0.3 mg/dL (0.1-1.2) 01/21/17 09:30 AST 45 units/L (5-40) H 01/21/17 09:30 ALT 62 units/L (7-56) H 01/21/17 09:30 Alkaline Phosphatase 57 units/L (35-129) 01/21/17 09:30 Total Protein 6.9 g/dL (6.3-8.2) 01/21/17 09:30 Albumin 3.5 g/dL (3.9-5) L 01/21/17 09:30 Albumin/Globulin Ratio 1.0 % 01/21/17 09:30 Blood Type O POSITIVE 01/26/17 10:45 Antibody Screen Negative 01/26/17 10:45 Crossmatch See Detail 01/26/17 10:45
--- NOTE | 2017-01-29 09:44 | Progress Note ---
Assessment and Plan 51 y/o male s/p radical cysto prostatectomy ileal conduit . 1. Follow up Surgery and Urology recs. 2. Will defer decision about transfusion to them. From a medical standpoint, I would not given the amount of hydration and IVF's the patient has received while in house. This could be a dilute from IVF's. However if concerned then transfusion would be an option. BP has been stable 3. Given concern for bleeding doubt they will transfer as there is no step down unit. Subjective Date of service: 01/29/17 Principal diagnosis: bladder cancer Interval history: Urology concerned about trend in hemoglobin, given bloody output from conduit. BP stable. Objective - Constitutional Vitals: Vital Signs - 12hr 01/28/17 01/28/17 01/28/17 22:00 22:02 23:00 Temperature Pulse Rate 101 H 99 H 100 H Respiratory 15 15 15 Rate Respiratory 17 Rate [Back] Blood Pressure 111/51 83/21 103/72 O2 Sat by Pulse 91 94 91 Oximetry 01/29/17 01/29/17 01/29/17 00:00 01:00 02:00 Temperature 98.5 F Pulse Rate 97 H 94 H 93 H Respiratory 13 18 14 Rate Respiratory Rate [Back] Blood Pressure 106/68 92/57 100/61 O2 Sat by Pulse 93 93 90 Oximetry 01/29/17 01/29/17 01/29/17 03:00 04:00 05:00 Temperature 98.8 F Pulse Rate 92 H 94 H 93 H Respiratory 16 17 19 Rate Respiratory Rate [Back] Blood Pressure 103/62 100/57 95/52 O2 Sat by Pulse 93 91 94 Oximetry 01/29/17 01/29/17 01/29/17 06:00 07:00 07:38 Temperature Pulse Rate 90 87 Respiratory 12 18 Rate Respiratory Rate [Back] Blood Pressure 95/52 106/50 O2 Sat by Pulse 93 93 93 Oximetry 01/29/17 08:00 Temperature 98.4 F Pulse Rate 90 Respiratory 16 Rate Respiratory Rate [Back] Blood Pressure 106/50 O2 Sat by Pulse 95 Oximetry - Labs CBC & Chem 7: 01/29/17 04:28 01/29/17 04:28 Labs: Abnormal lab results 01/29/17 01/29/17 Range/Units 04:28 04:28 WBC 11.4 H (4.5-11.0) K/mm3 RBC 3.52 L (3.65-5.03) M/mm3 Hgb 9.5 L (11.8-15.2) gm/dl Hct 30.0 L (35.5-45.6) % MCH 27 L (28-32) pg [place] % (Auto) 9.8 H (0.0-7.3) % [place] # 1.1 H (0.0-0.8) K/mm3 Seg Neutrophils % 71.7 H (40.0-70.0) % Seg Neutrophils # 8.2 H (1.8-7.7) K/mm3 BUN 7 L (9-20) mg/dL Glucose 108 H (75-100) mg/dL Calcium 7.8 L (8.4-10.2) mg/dL
--- NOTE | 2017-01-29 10:49 | Progress Note ---
Subjective Date of service: 01/29/17 Principal diagnosis: bladder cancer Interval history: s/p cystectomy with conduit 317 (Bryce/Jhoana/Jemma) NGT intact still with pain conduit with blood tinged urine Hb today 9.5 H/H trending down - recheck tomorrow no bowel sound hold in ICU today Objective - Constitutional Vitals: Vital Signs - 12hr 01/28/17 01/29/17 01/29/17 23:00 00:00 01:00 Temperature 98.5 F Pulse Rate 100 H 97 H 94 H Respiratory 15 13 18 Rate Blood Pressure 103/72 106/68 92/57 O2 Sat by Pulse 91 93 93 Oximetry 01/29/17 01/29/17 01/29/17 02:00 03:00 04:00 Temperature 98.8 F Pulse Rate 93 H 92 H 94 H Respiratory 14 16 17 Rate Blood Pressure 100/61 103/62 100/57 O2 Sat by Pulse 90 93 91 Oximetry 01/29/17 01/29/17 01/29/17 05:00 06:00 07:00 Temperature Pulse Rate 93 H 90 87 Respiratory 19 12 18 Rate Blood Pressure 95/52 95/52 106/50 O2 Sat by Pulse 94 93 93 Oximetry 01/29/17 01/29/17 01/29/17 07:38 08:00 09:00 Temperature 98.4 F Pulse Rate 90 82 Respiratory 16 14 Rate Blood Pressure 106/50 96/54 O2 Sat by Pulse 93 95 94 Oximetry - Labs CBC & Chem 7: 01/29/17 04:28 01/29/17 04:28 Labs: Abnormal lab results 01/29/17 01/29/17 Range/Units 04:28 04:28 WBC 11.4 H (4.5-11.0) K/mm3 RBC 3.52 L (3.65-5.03) M/mm3 Hgb 9.5 L (11.8-15.2) gm/dl Hct 30.0 L (35.5-45.6) % MCH 27 L (28-32) pg [place] % (Auto) 9.8 H (0.0-7.3) % [place] # 1.1 H (0.0-0.8) K/mm3 Seg Neutrophils % 71.7 H (40.0-70.0) % Seg Neutrophils # 8.2 H (1.8-7.7) K/mm3 BUN 7 L (9-20) mg/dL Glucose 108 H (75-100) mg/dL Calcium 7.8 L (8.4-10.2) mg/dL
--- NOTE | 2017-01-29 14:06 | Progress Note ---
Subjective Patient Reports: Positive: feels better, no flatus, no bowel movement, afebrile Narrative: doing OK no flatus , no BM ,abd soft benign , ileostomy viable .will keep npo . Objective Vital Signs - 12hr 01/29/17 01/29/17 01/29/17 03:00 04:00 05:00 Temperature 98.8 F Pulse Rate 92 H 94 H 93 H Respiratory 16 17 19 Rate Blood Pressure 103/62 100/57 95/52 O2 Sat by Pulse 93 91 94 Oximetry 01/29/17 01/29/17 01/29/17 06:00 07:00 07:38 Temperature Pulse Rate 90 87 Respiratory 12 18 Rate Blood Pressure 95/52 106/50 O2 Sat by Pulse 93 93 93 Oximetry 01/29/17 01/29/17 01/29/17 08:00 09:00 12:00 Temperature 98.4 F 98.1 F Pulse Rate 90 82 Respiratory 16 14 Rate Blood Pressure 106/50 96/54 O2 Sat by Pulse 95 94 Oximetry - Labs 01/29/17 04:28 01/29/17 04:28 Diabetes panel 01/29/17 Range/Units 04:28 Sodium 137 (137-145) mmol/L Potassium 3.9 (3.6-5.0) mmol/L Chloride 103.5 (98-107) mmol/L Carbon Dioxide 23 (22-30) mmol/L BUN 7 L (9-20) mg/dL Creatinine 1.0 (0.8-1.5) mg/dL Glucose 108 H (75-100) mg/dL Calcium 7.8 L (8.4-10.2) mg/dL Calcium panel 01/29/17 Range/Units 04:28 Calcium 7.8 L (8.4-10.2) mg/dL Pituitary panel 01/29/17 Range/Units 04:28 Sodium 137 (137-145) mmol/L Potassium 3.9 (3.6-5.0) mmol/L Chloride 103.5 (98-107) mmol/L Carbon Dioxide 23 (22-30) mmol/L BUN 7 L (9-20) mg/dL Creatinine 1.0 (0.8-1.5) mg/dL Glucose 108 H (75-100) mg/dL Calcium 7.8 L (8.4-10.2) mg/dL Adrenal panel 01/29/17 Range/Units 04:28 Sodium 137 (137-145) mmol/L Potassium 3.9 (3.6-5.0) mmol/L Chloride 103.5 (98-107) mmol/L Carbon Dioxide 23 (22-30) mmol/L BUN 7 L (9-20) mg/dL Creatinine 1.0 (0.8-1.5) mg/dL Glucose 108 H (75-100) mg/dL Calcium 7.8 L (8.4-10.2) mg/dL
[2017-01-29] MEDS: MORPHINE IV PRN (20:59)
[2017-01-29] MEDS: HEPARIN SUB-Q SCH (22:21)
[2017-01-30] MEDS: DILAUDID PCA 6MG/30ML IV SCH ×3 (00:38→22:11)
[2017-01-30] MEDS: NORCO 5/325 PO PRN ×2 (06:11→22:09)
[2017-01-30] MEDS: ZOFRAN IV PRN (06:12)
[2017-01-30] MEDS: D5W/0.45% NACL/KCL 20 MEQ 20 MEQ/1,000 ML BAG IV SCH ×3 (06:13→22:09)
[2017-01-30 07:52] LABS: Basophils % (Auto) 0.5 % (0.0-1.8); Eosinophils % (Auto) 3.5 % (0.0-4.3); Hematocrit 30.5 % (35.5-45.6); Hemoglobin 9.8 gm/dl (11.8-15.2); Mean Corpuscular HGB Conc 32 % (32-34); Mean Corpuscular Hemoglobin 27 pg (28-32); Mean Corpuscular Volume 84 fl (84-94); Platelet Count 207 K/mm3 (140-440); Red Blood Count 3.62 M/mm3 (3.65-5.03); Red Cell Distribution Width 15.1 % (13.2-15.2); White Blood Count 10.5 K/mm3 (4.5-11.0)
[2017-01-30 08:14] LABS: Anion Gap 16 mmol/L; BUN/Creatinine Ratio 8.75; Blood Urea Nitrogen 7 mg/dL (9-20); Calcium 8.2 mg/dL (8.4-10.2); Carbon Dioxide 23 mmol/L (22-30); Chloride 102.7 mmol/L (98-107); Glucose 124 mg/dL (75-100); Sodium 138 mmol/L (137-145)
[2017-01-30] MEDS: PEPCID IV SCH ×2 (09:30→22:10)
[2017-01-30] MEDS: HEPARIN SUB-Q SCH ×2 (09:30→22:10)
--- NOTE | 2017-01-30 11:33 | Progress Note ---
Subjective Date of service: 01/30/17 Principal diagnosis: bladder cancer Interval history: s/p cystectomy with conduit 01-26-17 (Bryce/Jhoana/Jemma) NGT intact still with pain conduit with blood tinged urine both ueteral stents intact Hb today 9.8 H/H trending down - recheck tomorrow no bowel sound KUB today consider removing keyes & transfer to floor on Tuesday Objective - Constitutional Vitals: Vital Signs - 12hr 01/30/17 01/30/17 01/30/17 00:00 01:00 02:00 Temperature 99.2 F Pulse Rate 90 84 82 Respiratory 14 19 18 Rate Blood Pressure 114/62 102/54 113/59 O2 Sat by Pulse 94 91 95 Oximetry 01/30/17 01/30/17 01/30/17 03:00 04:00 05:00 Temperature 100.3 F H 100.3 F H Pulse Rate 87 92 H 89 Respiratory 18 15 16 Rate Blood Pressure 91/53 106/67 105/63 O2 Sat by Pulse 92 91 94 Oximetry 01/30/17 01/30/17 01/30/17 06:00 07:00 08:00 Temperature 98.5 F Pulse Rate 90 92 H 81 Respiratory 22 17 18 Rate Blood Pressure 114/58 114/66 98/50 O2 Sat by Pulse 95 96 95 Oximetry 01/30/17 01/30/17 01/30/17 08:05 08:10 09:00 Temperature Pulse Rate 79 Respiratory 17 13 Rate Blood Pressure 98/50 O2 Sat by Pulse 96 95 96 Oximetry - Labs CBC & Chem 7: 01/30/17 07:35 01/30/17 07:35 Labs: Abnormal lab results 01/26/17 01/30/17 01/30/17 Range/Units 10:45 07:35 07:35 RBC 3.62 L (3.65-5.03) M/mm3 Hgb 9.8 L (11.8-15.2) gm/dl Hct 30.5 L (35.5-45.6) % MCH 27 L (28-32) pg Lymph % (Auto) 10.0 L (13.4-35.0) % [place] % (Auto) 7.8 H (0.0-7.3) % Lymph # 1.1 L (1.2-5.4) K/mm3 Seg Neutrophils % 78.2 H (40.0-70.0) % Seg Neutrophils # 8.2 H (1.8-7.7) K/mm3 BUN 7 L (9-20) mg/dL Glucose 124 H (75-100) mg/dL Calcium 8.2 L (8.4-10.2) mg/dL Crossmatch See Detail
[2017-01-30] MEDS ORDERED: MILK OF MAGNESIA PO ONE ×2 (12:00→13:00)
--- NOTE | 2017-01-30 13:41 | Progress Note ---
Assessment and Plan 51 y/o male s/p radical cysto prostatectomy ileal conduit . 1. Follow up Surgery and Urology recs. 2. No acute critical issues. Stable for discharge. 3. Will sign off. Subjective Date of service: 01/30/17 Principal diagnosis: bladder cancer Interval history: Urology wrote note today. Transfer to Floor tomorrow. Not sure why. From a critical care standpoint, patient has been stable. hgB is the same this am. Objective - Constitutional Vitals: Vital Signs - 12hr 01/30/17 01/30/17 01/30/17 02:00 03:00 04:00 Temperature 100.3 F H 100.3 F H Pulse Rate 82 87 92 H Respiratory 18 18 15 Rate Blood Pressure 113/59 91/53 106/67 O2 Sat by Pulse 95 92 91 Oximetry 01/30/17 01/30/17 01/30/17 05:00 06:00 07:00 Temperature Pulse Rate 89 90 92 H Respiratory 16 22 17 Rate Blood Pressure 105/63 114/58 114/66 O2 Sat by Pulse 94 95 96 Oximetry 01/30/17 01/30/17 01/30/17 08:00 08:05 08:10 Temperature 98.5 F Pulse Rate 81 Respiratory 18 17 Rate Blood Pressure 98/50 O2 Sat by Pulse 95 96 95 Oximetry 01/30/17 09:00 Temperature Pulse Rate 79 Respiratory 13 Rate Blood Pressure 98/50 O2 Sat by Pulse 96 Oximetry - Labs CBC & Chem 7: 01/30/17 07:35 01/30/17 07:35 Labs: Abnormal lab results 01/30/17 01/30/17 Range/Units 07:35 07:35 RBC 3.62 L (3.65-5.03) M/mm3 Hgb 9.8 L (11.8-15.2) gm/dl Hct 30.5 L (35.5-45.6) % MCH 27 L (28-32) pg Lymph % (Auto) 10.0 L (13.4-35.0) % [place] % (Auto) 7.8 H (0.0-7.3) % Lymph # 1.1 L (1.2-5.4) K/mm3 Seg Neutrophils % 78.2 H (40.0-70.0) % Seg Neutrophils # 8.2 H (1.8-7.7) K/mm3 BUN 7 L (9-20) mg/dL Glucose 124 H (75-100) mg/dL Calcium 8.2 L (8.4-10.2) mg/dL
--- NOTE | 2017-01-30 15:52 | Progress Note ---
Assessment and Plan Assessment and plan: --Anemia Mild drop post surgery, hemoglobin stable for the last 2- 3 days today 9.8, monitor --Low-grade fever Tylenol, blood and urine cultures, sent has no leukocytosis, no need for antibiotics at this point --Status postl cystectomy, prostatectomy and ileal conduit urology and surgery following Patient continues to have NG tube nothing by mouth status Supportive care --Hypotension Blood pressures normal range, continue IV fluids --DVT prophylaxis SCDs, no pharmacologic anticoagulation in view of postoperative state Out of bed to chair as tolerated Patient is stable enough to be transferred out of ICU Plan of care discussed with the patient History Interval history: Patient seen and evaluated medical records reviewed No new events reported by the nursing staff Did not pass flatus, patient feels slightly better No new complaints, alert awake oriented 3 not in acute distress Hospitalist Physical - Constitutional Vitals: Temp Pulse Resp BP Pulse Ox 98.4 F 79 13 98/50 96 01/30/17 12:00 01/30/17 09:00 01/30/17 09:00 01/30/17 09:00 01/30/17 09:00 General appearance: Present: no acute distress, well-nourished, other (NG tube in place) - EENT Eyes: Present: PERRL, EOM intact - Neck Neck: Present: supple, normal ROM - Respiratory Respiratory effort: normal Respiratory: bilateral: diminished, negative: rales, rhonchi, wheezing - Cardiovascular Rhythm: regular Heart Sounds: Present: S1 & S2 - Extremities Extremities: no ischemia, pulses intact, pulses symmetrical Peripheral Pulses: within normal limits - Abdominal General gastrointestinal: soft, non-tender, absent bowel sounds - Integumentary Integumentary: Present: clear, warm - Psychiatric Psychiatric: appropriate mood/affect, cooperative - Neurologic Neurologic: CNII-XII intact, moves all extremities Results - Labs CBC & Chem 7: 01/30/17 07:35 01/30/17 07:35 Labs: Laboratory Last Values WBC 10.5 K/mm3 (4.5-11.0) 01/30/17 07:35 RBC 3.62 M/mm3 (3.65-5.03) L 01/30/17 07:35 Hgb 9.8 gm/dl (11.8-15.2) L 01/30/17 07:35 Hct 30.5 % (35.5-45.6) L 01/30/17 07:35 MCV 84 fl (84-94) 01/30/17 07:35 MCH 27 pg (28-32) L 01/30/17 07:35 MCHC 32 % (32-34) 01/30/17 07:35 RDW 15.1 % (13.2-15.2) 01/30/17 07:35 Plt Count 207 K/mm3 (140-440) 01/30/17 07:35 Lymph % (Auto) 10.0 % (13.4-35.0) L 01/30/17 07:35 [place] % (Auto) 7.8 % (0.0-7.3) H 01/30/17 07:35 Eos % (Auto) 3.5 % (0.0-4.3) 01/30/17 07:35 Baso % (Auto) 0.5 % (0.0-1.8) 01/30/17 07:35 Lymph # 1.1 K/mm3 (1.2-5.4) L 01/30/17 07:35 [place] # 0.8 K/mm3 (0.0-0.8) 01/30/17 07:35 Eos # 0.4 K/mm3 (0.0-0.4) 01/30/17 07:35 Baso # 0.1 K/mm3 (0.0-0.1) 01/30/17 07:35 Add Manual Diff Complete 01/26/17 Unknown Total Counted 100 01/26/17 Unknown Seg Neutrophils % 78.2 % (40.0-70.0) H 01/30/17 07:35 Seg Neuts % (Manual) 90.0 % (40.0-70.0) H 01/26/17 Unknown Band Neutrophils % 0 % 01/26/17 Unknown Lymphocytes % (Manual) 5.0 % (13.4-35.0) L 01/26/17 Unknown Reactive Lymphs % (Man) 0 % 01/26/17 Unknown Monocytes % (Manual) 5.0 % (0.0-7.3) 01/26/17 Unknown Eosinophils % (Manual) 0 % (0.0-4.3) 01/26/17 Unknown Basophils % (Manual) 0 % (0.0-1.8) 01/26/17 Unknown Metamyelocytes % 0 % 01/26/17 Unknown Myelocytes % 0 % 01/26/17 Unknown Promyelocytes % 0 % 01/26/17 Unknown Blast Cells % 0 % 01/26/17 Unknown Nucleated RBC % Not Reportable 01/26/17 Unknown Seg Neutrophils # 8.2 K/mm3 (1.8-7.7) H 01/30/17 07:35 Seg Neutrophils # Man 14.4 K/mm3 (1.8-7.7) H 01/26/17 Unknown Band Neutrophils # 0.0 K/mm3 01/26/17 Unknown Lymphocytes # (Manual) 0.8 K/mm3 (1.2-5.4) L 01/26/17 Unknown Abs React Lymphs (Man) 0.0 K/mm3 01/26/17 Unknown Monocytes # (Manual) 0.8 K/mm3 (0.0-0.8) 01/26/17 Unknown Eosinophils # (Manual) 0.0 K/mm3 (0.0-0.4) 01/26/17 Unknown Basophils # (Manual) 0.0 K/mm3 (0.0-0.1) 01/26/17 Unknown Metamyelocytes # 0.0 K/mm3 01/26/17 Unknown Myelocytes # 0.0 K/mm3 01/26/17 Unknown Promyelocytes # 0.0 K/mm3 01/26/17 Unknown Blast Cells # 0.0 K/mm3 01/26/17 Unknown WBC Morphology Not Reportable 01/26/17 Unknown Hypersegmented Neuts Not Reportable 01/26/17 Unknown Hyposegmented Neuts Not Reportable 01/26/17 Unknown Hypogranular Neuts Not Reportable 01/26/17 Unknown Smudge Cells Not Reportable 01/26/17 Unknown Toxic Granulation Not Reportable 01/26/17 Unknown Toxic Vacuolation Not Reportable 01/26/17 Unknown Dohle Bodies Not Reportable 01/26/17 Unknown Pelger-Huet Anomaly Not Reportable 01/26/17 Unknown Sara Rods Not Reportable 01/26/17 Unknown Platelet Estimate Consistent w auto 01/26/17 Unknown Clumped Platelets Not Reportable 01/26/17 Unknown Plt Clumps, EDTA Not Reportable 01/26/17 Unknown Large Platelets Not Reportable 01/26/17 Unknown Giant Platelets Not Reportable 01/26/17 Unknown Platelet Satelliting Not Reportable 01/26/17 Unknown Plt Morphology Comment Not Reportable 01/26/17 Unknown RBC Morphology Not Reportable 01/26/17 Unknown Dimorphic RBCs Not Reportable 01/26/17 Unknown Polychromasia Not Reportable 01/26/17 Unknown Hypochromasia Not Reportable 01/26/17 Unknown Poikilocytosis Not Reportable 01/26/17 Unknown Anisocytosis 1+ 01/26/17 Unknown Microcytosis Not Reportable 01/26/17 Unknown Macrocytosis Not Reportable 01/26/17 Unknown Spherocytes Not Reportable 01/26/17 Unknown Pappenheimer Bodies Not Reportable 01/26/17 Unknown Sickle Cells Not Reportable 01/26/17 Unknown Target Cells Not Reportable 01/26/17 Unknown Tear Drop Cells Not Reportable 01/26/17 Unknown Ovalocytes Not Reportable 01/26/17 Unknown Helmet Cells Not Reportable 01/26/17 Unknown [place] Bodies Not Reportable 01/26/17 Unknown [place] Rings Not Reportable 01/26/17 Unknown Davin Cells Not Reportable 01/26/17 Unknown Bite Cells Not Reportable 01/26/17 Unknown Crenated Cell Not Reportable 01/26/17 Unknown Elliptocytes Not Reportable 01/26/17 Unknown Acanthocytes (Spur) Not Reportable 01/26/17 Unknown Rouleaux Not Reportable 01/26/17 Unknown Hemoglobin C Crystals Not Reportable 01/26/17 Unknown Schistocytes Not Reportable 01/26/17 Unknown Malaria parasites Not Reportable 01/26/17 Unknown Juan M Bodies Not Reportable 01/26/17 Unknown Hem Pathologist Commnt No 01/26/17 Unknown PT 14.9 Sec. (12.2-14.9) 01/26/17 17:53 INR 1.18 (0.87-1.13) H 01/26/17 17:53 APTT 24.9 Sec. (24.2-36.6) 01/26/17 17:53 Sodium 138 mmol/L (137-145) 01/30/17 07:35 Potassium 4.0 mmol/L (3.6-5.0) 01/30/17 07:35 Chloride 102.7 mmol/L (98-107) 01/30/17 07:35 Carbon Dioxide 23 mmol/L (22-30) 01/30/17 07:35 Anion Gap 16 mmol/L 01/30/17 07:35 BUN 7 mg/dL (9-20) L 01/30/17 07:35 Creatinine 0.8 mg/dL (0.8-1.5) 01/30/17 07:35 Estimated GFR > 60 ml/min 01/30/17 07:35 BUN/Creatinine Ratio 8.75 % 01/30/17 07:35 Glucose 124 mg/dL (75-100) H 01/30/17 07:35 Calcium 8.2 mg/dL (8.4-10.2) L 01/30/17 07:35 Total Bilirubin 0.3 mg/dL (0.1-1.2) 01/21/17 09:30 AST 45 units/L (5-40) H 01/21/17 09:30 ALT 62 units/L (7-56) H 01/21/17 09:30 Alkaline Phosphatase 57 units/L (35-129) 01/21/17 09:30 Total Protein 6.9 g/dL (6.3-8.2) 01/21/17 09:30 Albumin 3.5 g/dL (3.9-5) L 01/21/17 09:30 Albumin/Globulin Ratio 1.0 % 01/21/17 09:30 Blood Type O POSITIVE 01/26/17 10:45 Antibody Screen Negative 01/26/17 10:45 Crossmatch See Detail 01/26/17 10:45
--- NOTE | 2017-01-30 16:49 | Progress Note ---
Subjective Patient Reports: Positive: feels better, no flatus, no bowel movement Narrative: No BM , will cont same , TPN ? , Objective Vital Signs - 12hr 01/30/17 01/30/17 01/30/17 05:00 06:00 07:00 Temperature Pulse Rate 89 90 92 H Respiratory 16 22 17 Rate Blood Pressure 105/63 114/58 114/66 O2 Sat by Pulse 94 95 96 Oximetry 01/30/17 01/30/17 01/30/17 08:00 08:05 08:10 Temperature 98.5 F Pulse Rate 81 Respiratory 18 17 Rate Blood Pressure 98/50 O2 Sat by Pulse 95 96 95 Oximetry 01/30/17 01/30/17 09:00 12:00 Temperature 98.4 F Pulse Rate 79 Respiratory 13 Rate Blood Pressure 98/50 O2 Sat by Pulse 96 Oximetry - Labs 01/30/17 07:35 01/30/17 07:35 Diabetes panel 01/30/17 Range/Units 07:35 Sodium 138 (137-145) mmol/L Potassium 4.0 (3.6-5.0) mmol/L Chloride 102.7 (98-107) mmol/L Carbon Dioxide 23 (22-30) mmol/L BUN 7 L (9-20) mg/dL Creatinine 0.8 (0.8-1.5) mg/dL Glucose 124 H (75-100) mg/dL Calcium 8.2 L (8.4-10.2) mg/dL Calcium panel 01/30/17 Range/Units 07:35 Calcium 8.2 L (8.4-10.2) mg/dL Pituitary panel 01/30/17 Range/Units 07:35 Sodium 138 (137-145) mmol/L Potassium 4.0 (3.6-5.0) mmol/L Chloride 102.7 (98-107) mmol/L Carbon Dioxide 23 (22-30) mmol/L BUN 7 L (9-20) mg/dL Creatinine 0.8 (0.8-1.5) mg/dL Glucose 124 H (75-100) mg/dL Calcium 8.2 L (8.4-10.2) mg/dL Adrenal panel 01/30/17 Range/Units 07:35 Sodium 138 (137-145) mmol/L Potassium 4.0 (3.6-5.0) mmol/L Chloride 102.7 (98-107) mmol/L Carbon Dioxide 23 (22-30) mmol/L BUN 7 L (9-20) mg/dL Creatinine 0.8 (0.8-1.5) mg/dL Glucose 124 H (75-100) mg/dL Calcium 8.2 L (8.4-10.2) mg/dL
[2017-01-31 06:06] LABS: Basophils % (Auto) 0.5 % (0.0-1.8); Eosinophils % (Auto) 3.9 % (0.0-4.3); Hematocrit 31.3 % (35.5-45.6); Mean Corpuscular HGB Conc 32 % (32-34); Mean Corpuscular Hemoglobin 27 pg (28-32); Mean Corpuscular Volume 85 fl (84-94); Platelet Count 248 K/mm3 (140-440); Red Blood Count 3.67 M/mm3 (3.65-5.03)
[2017-01-31 06:07] LABS: Anion Gap 16 mmol/L; BUN/Creatinine Ratio 7.77; Blood Urea Nitrogen 7 mg/dL (9-20); Calcium 8.2 mg/dL (8.4-10.2); Carbon Dioxide 25 mmol/L (22-30); Chloride 103.4 mmol/L (98-107); Glucose 111 mg/dL (75-100); Potassium 4.1 mmol/L (3.6-5.0); Sodium 140 mmol/L (137-145)
[2017-01-31] MEDS: D5W/0.45% NACL/KCL 20 MEQ 20 MEQ/1,000 ML BAG IV SCH ×2 (06:21→19:24)
[2017-01-31] MEDS: DILAUDID PCA 6MG/30ML IV SCH ×2 (08:39→19:25)
[2017-01-31] MEDS ORDERED: MILK OF MAGNESIA PO ONE (09:00)
--- NOTE | 2017-01-31 09:04 | XRay Report ---
ABDOMEN RADIOGRAPH INDICATION: Ileus. COMPARISON: 01/27/2017 FINDINGS: Frontal abdominal radiograph again demonstrates bilateral ureteral stents, left lower than right, though both loop in the pelvis and their tips project just lateral to the right hip, presumed extending to a right lower quadrant urinary diversion ostomy. Innumerable pelvic kole may represent bladder resection. An esophagogastric tube in the proximal stomach again noted, now unfolded and possibly retracted by approximately 6.5 cm with its side-port roughly 4 cm past the GE junction. No focal suspicious renal calcifications. Numerous air containing abdominal small bowel loops now dilated up to 4.1 cm caliber. Lung bases not included. EKG leads. Grossly unremarkable bones. CONCLUSION: 1. Mild postoperative ileus may be present in this patient with likely bladder resection and urinary diversion procedure with bilateral ureteral stents noted, as described. Please correlate. 2. Few other findings, as above. Thank you for the opportunity to participate in this patient's care.
[2017-01-31] MEDS: HEPARIN SUB-Q SCH ×2 (09:05→22:09)
[2017-01-31] MEDS: PEPCID IV SCH ×2 (09:06→22:09)
--- NOTE | 2017-01-31 11:54 | Progress Note ---
Assessment and Plan incisional tenderness good u/o +flatus nutrion consult ? adv diet keyes out Subjective Date of service: 01/31/17 Principal diagnosis: bladder cancer Objective - Constitutional Vitals: Vital Signs - 12hr 01/31/17 01/31/17 01/31/17 00:00 01:00 02:00 Temperature 99.1 F Pulse Rate 86 76 81 Respiratory 17 10 L 12 Rate Blood Pressure 103/54 103/54 103/54 O2 Sat by Pulse 93 Oximetry 01/31/17 01/31/17 01/31/17 03:00 04:00 05:00 Temperature Pulse Rate 82 81 86 Respiratory 14 16 16 Rate Blood Pressure 103/54 103/54 103/54 O2 Sat by Pulse 94 Oximetry 01/31/17 01/31/17 06:00 07:47 Temperature 98.3 F Pulse Rate 89 Respiratory 16 Rate Blood Pressure 103/54 O2 Sat by Pulse Oximetry General appearance: Present: no acute distress - Neck Neck: supple - Respiratory Respiratory effort: normal Extremities: no ischemia - Gastrointestinal General gastrointestinal: Present: soft, tender - Labs CBC & Chem 7: 01/31/17 05:03 01/31/17 05:03 Labs: Abnormal lab results 01/31/17 01/31/17 Range/Units 05:03 05:03 Hgb 10.0 L (11.8-15.2) gm/dl Hct 31.3 L (35.5-45.6) % MCH 27 L (28-32) pg [place] % (Auto) 10.9 H (0.0-7.3) % [place] # 1.1 H (0.0-0.8) K/mm3 BUN 7 L (9-20) mg/dL Glucose 111 H (75-100) mg/dL Calcium 8.2 L (8.4-10.2) mg/dL
[2017-01-31] MEDS ORDERED: DULCOLAX PR PRN (11:55)
[2017-01-31] MEDS: DULCOLAX PR PRN (12:26)
--- NOTE | 2017-01-31 14:48 | Progress Note ---
Subjective Patient Reports: Positive: no new complaints, feels better, flatus, no bowel movement Narrative: doing fine No BM will keep in the ICU as per urology . Objective Vital Signs - 12hr 01/31/17 01/31/17 01/31/17 03:00 04:00 05:00 Temperature Pulse Rate 82 81 86 Respiratory 14 16 16 Rate Blood Pressure 103/54 103/54 103/54 O2 Sat by Pulse 94 Oximetry 01/31/17 01/31/17 01/31/17 06:00 07:47 11:59 Temperature 98.3 F 98.3 F Pulse Rate 89 Respiratory 16 Rate Blood Pressure 103/54 O2 Sat by Pulse Oximetry - Labs 01/31/17 05:03 01/31/17 05:03 Diabetes panel 01/31/17 Range/Units 05:03 Sodium 140 (137-145) mmol/L Potassium 4.1 (3.6-5.0) mmol/L Chloride 103.4 (98-107) mmol/L Carbon Dioxide 25 (22-30) mmol/L BUN 7 L (9-20) mg/dL Creatinine 0.9 (0.8-1.5) mg/dL Glucose 111 H (75-100) mg/dL Calcium 8.2 L (8.4-10.2) mg/dL Calcium panel 01/31/17 Range/Units 05:03 Calcium 8.2 L (8.4-10.2) mg/dL Pituitary panel 01/31/17 Range/Units 05:03 Sodium 140 (137-145) mmol/L Potassium 4.1 (3.6-5.0) mmol/L Chloride 103.4 (98-107) mmol/L Carbon Dioxide 25 (22-30) mmol/L BUN 7 L (9-20) mg/dL Creatinine 0.9 (0.8-1.5) mg/dL Glucose 111 H (75-100) mg/dL Calcium 8.2 L (8.4-10.2) mg/dL Adrenal panel 01/31/17 Range/Units 05:03 Sodium 140 (137-145) mmol/L Potassium 4.1 (3.6-5.0) mmol/L Chloride 103.4 (98-107) mmol/L Carbon Dioxide 25 (22-30) mmol/L BUN 7 L (9-20) mg/dL Creatinine 0.9 (0.8-1.5) mg/dL Glucose 111 H (75-100) mg/dL Calcium 8.2 L (8.4-10.2) mg/dL
--- NOTE | 2017-01-31 15:48 | Progress Note ---
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 following Patient continues to have NG tube nothing by mouth status --Anemia Mild drop post surgery, hemoglobin stable for the last 2- 3 days today 9.8, monitor --Low-grade fever, afebrile now Cultures negative to date , supportive care --Hypotension Blood pressures normal range, continue IV fluids --DVT prophylaxis SCDs, no pharmacologic anticoagulation in view of postoperative state Out of bed to chair as tolerated Patient is stable enough to be transferred out of ICU Surgery and urology note reviewed History Interval history: Patient seen and evaluated medical records reviewed No new events reported by nursing staff Patient reports that he had flatus, denies bowel movement Alert awake oriented 3 not in acute distress Vital signs reviewed Hospitalist Physical - Constitutional Vitals: Temp Pulse Resp BP Pulse Ox 98.3 F 89 16 103/54 94 01/31/17 11:59 01/31/17 06:00 01/31/17 06:00 01/31/17 06:00 01/31/17 04:00 General appearance: Present: no acute distress, well-nourished - EENT Eyes: Present: PERRL, EOM intact - Neck Neck: Present: supple, normal ROM - Respiratory Respiratory effort: normal Respiratory: bilateral: diminished, negative: rales, rhonchi, wheezing - Cardiovascular Rhythm: regular Heart Sounds: Present: S1 & S2 - Extremities Extremities: no ischemia, pulses intact, pulses symmetrical Peripheral Pulses: within normal limits - Abdominal General gastrointestinal: soft, non-tender, non-distended, absent bowel sounds - Integumentary Integumentary: Present: clear, warm - Psychiatric Psychiatric: appropriate mood/affect, cooperative - Neurologic Neurologic: CNII-XII intact, moves all extremities Results - Labs CBC & Chem 7: 01/31/17 05:03 01/31/17 05:03 Labs: Laboratory Last Values WBC 10.0 K/mm3 (4.5-11.0) 01/31/17 05:03 RBC 3.67 M/mm3 (3.65-5.03) 01/31/17 05:03 Hgb 10.0 gm/dl (11.8-15.2) L 01/31/17 05:03 Hct 31.3 % (35.5-45.6) L 01/31/17 05:03 MCV 85 fl (84-94) 01/31/17 05:03 MCH 27 pg (28-32) L 01/31/17 05:03 MCHC 32 % (32-34) 01/31/17 05:03 RDW 15.0 % (13.2-15.2) 01/31/17 05:03 Plt Count 248 K/mm3 (140-440) 01/31/17 05:03 Lymph % (Auto) 16.4 % (13.4-35.0) 01/31/17 05:03 [place] % (Auto) 10.9 % (0.0-7.3) H 01/31/17 05:03 Eos % (Auto) 3.9 % (0.0-4.3) 01/31/17 05:03 Baso % (Auto) 0.5 % (0.0-1.8) 01/31/17 05:03 Lymph # 1.6 K/mm3 (1.2-5.4) 01/31/17 05:03 [place] # 1.1 K/mm3 (0.0-0.8) H 01/31/17 05:03 Eos # 0.4 K/mm3 (0.0-0.4) 01/31/17 05:03 Baso # 0.0 K/mm3 (0.0-0.1) 01/31/17 05:03 Add Manual Diff Complete 01/26/17 Unknown Total Counted 100 01/26/17 Unknown Seg Neutrophils % 68.3 % (40.0-70.0) 01/31/17 05:03 Seg Neuts % (Manual) 90.0 % (40.0-70.0) H 01/26/17 Unknown Band Neutrophils % 0 % 01/26/17 Unknown Lymphocytes % (Manual) 5.0 % (13.4-35.0) L 01/26/17 Unknown Reactive Lymphs % (Man) 0 % 01/26/17 Unknown Monocytes % (Manual) 5.0 % (0.0-7.3) 01/26/17 Unknown Eosinophils % (Manual) 0 % (0.0-4.3) 01/26/17 Unknown Basophils % (Manual) 0 % (0.0-1.8) 01/26/17 Unknown Metamyelocytes % 0 % 01/26/17 Unknown Myelocytes % 0 % 01/26/17 Unknown Promyelocytes % 0 % 01/26/17 Unknown Blast Cells % 0 % 01/26/17 Unknown Nucleated RBC % Not Reportable 01/26/17 Unknown Seg Neutrophils # 6.8 K/mm3 (1.8-7.7) 01/31/17 05:03 Seg Neutrophils # Man 14.4 K/mm3 (1.8-7.7) H 01/26/17 Unknown Band Neutrophils # 0.0 K/mm3 01/26/17 Unknown Lymphocytes # (Manual) 0.8 K/mm3 (1.2-5.4) L 01/26/17 Unknown Abs React Lymphs (Man) 0.0 K/mm3 01/26/17 Unknown Monocytes # (Manual) 0.8 K/mm3 (0.0-0.8) 01/26/17 Unknown Eosinophils # (Manual) 0.0 K/mm3 (0.0-0.4) 01/26/17 Unknown Basophils # (Manual) 0.0 K/mm3 (0.0-0.1) 01/26/17 Unknown Metamyelocytes # 0.0 K/mm3 01/26/17 Unknown Myelocytes # 0.0 K/mm3 01/26/17 Unknown Promyelocytes # 0.0 K/mm3 01/26/17 Unknown Blast Cells # 0.0 K/mm3 01/26/17 Unknown WBC Morphology Not Reportable 01/26/17 Unknown Hypersegmented Neuts Not Reportable 01/26/17 Unknown Hyposegmented Neuts Not Reportable 01/26/17 Unknown Hypogranular Neuts Not Reportable 01/26/17 Unknown Smudge Cells Not Reportable 01/26/17 Unknown Toxic Granulation Not Reportable 01/26/17 Unknown Toxic Vacuolation Not Reportable 01/26/17 Unknown Dohle Bodies Not Reportable 01/26/17 Unknown Pelger-Huet Anomaly Not Reportable 01/26/17 Unknown Sara Rods Not Reportable 01/26/17 Unknown Platelet Estimate Consistent w auto 01/26/17 Unknown Clumped Platelets Not Reportable 01/26/17 Unknown Plt Clumps, EDTA Not Reportable 01/26/17 Unknown Large Platelets Not Reportable 01/26/17 Unknown Giant Platelets Not Reportable 01/26/17 Unknown Platelet Satelliting Not Reportable 01/26/17 Unknown Plt Morphology Comment Not Reportable 01/26/17 Unknown RBC Morphology Not Reportable 01/26/17 Unknown Dimorphic RBCs Not Reportable 01/26/17 Unknown Polychromasia Not Reportable 01/26/17 Unknown Hypochromasia Not Reportable 01/26/17 Unknown Poikilocytosis Not Reportable 01/26/17 Unknown Anisocytosis 1+ 01/26/17 Unknown Microcytosis Not Reportable 01/26/17 Unknown Macrocytosis Not Reportable 01/26/17 Unknown Spherocytes Not Reportable 01/26/17 Unknown Pappenheimer Bodies Not Reportable 01/26/17 Unknown Sickle Cells Not Reportable 01/26/17 Unknown Target Cells Not Reportable 01/26/17 Unknown Tear Drop Cells Not Reportable 01/26/17 Unknown Ovalocytes Not Reportable 01/26/17 Unknown Helmet Cells Not Reportable 01/26/17 Unknown [place] Bodies Not Reportable 01/26/17 Unknown [place] Rings Not Reportable 01/26/17 Unknown [place] Cells Not Reportable 01/26/17 Unknown Bite Cells Not Reportable 01/26/17 Unknown Crenated Cell Not Reportable 01/26/17 Unknown Elliptocytes Not Reportable 01/26/17 Unknown Acanthocytes (Spur) Not Reportable 01/26/17 Unknown Rouleaux Not Reportable 01/26/17 Unknown Hemoglobin C Crystals Not Reportable 01/26/17 Unknown Schistocytes Not Reportable 01/26/17 Unknown Malaria parasites Not Reportable 01/26/17 Unknown Juan M Bodies Not Reportable 01/26/17 Unknown Hem Pathologist Commnt No 01/26/17 Unknown PT 14.9 Sec. (12.2-14.9) 01/26/17 17:53 INR 1.18 (0.87-1.13) H 01/26/17 17:53 APTT 24.9 Sec. (24.2-36.6) 01/26/17 17:53 Sodium 140 mmol/L (137-145) 01/31/17 05:03 Potassium 4.1 mmol/L (3.6-5.0) 01/31/17 05:03 Chloride 103.4 mmol/L (98-107) 01/31/17 05:03 Carbon Dioxide 25 mmol/L (22-30) 01/31/17 05:03 Anion Gap 16 mmol/L 01/31/17 05:03 BUN 7 mg/dL (9-20) L 01/31/17 05:03 Creatinine 0.9 mg/dL (0.8-1.5) 01/31/17 05:03 Estimated GFR > 60 ml/min 01/31/17 05:03 BUN/Creatinine Ratio 7.77 % 01/31/17 05:03 Glucose 111 mg/dL (75-100) H 01/31/17 05:03 Calcium 8.2 mg/dL (8.4-10.2) L 01/31/17 05:03 Total Bilirubin 0.3 mg/dL (0.1-1.2) 01/21/17 09:30 AST 45 units/L (5-40) H 01/21/17 09:30 ALT 62 units/L (7-56) H 01/21/17 09:30 Alkaline Phosphatase 57 units/L (35-129) 01/21/17 09:30 Total Protein 6.9 g/dL (6.3-8.2) 01/21/17 09:30 Albumin 3.5 g/dL (3.9-5) L 01/21/17 09:30 Albumin/Globulin Ratio 1.0 % 01/21/17 09:30 Blood Type O POSITIVE 01/26/17 10:45 Antibody Screen Negative 01/26/17 10:45 Crossmatch See Detail 01/26/17 10:45
[2017-02-01] MEDS: D5W/0.45% NACL/KCL 20 MEQ 20 MEQ/1,000 ML BAG IV SCH ×2 (00:12→09:07)
[2017-02-01] MEDS: ZOFRAN IV PRN ×2 (00:33→21:57)
[2017-02-01 04:50] LABS: Alanine Aminotransferase 15 units/L (7-56); Albumin 3.2 g/dL (3.9-5); Albumin/Globulin Ratio 1.1 %; Alkaline Phosphatase 52 units/L (35-129); Anion Gap 14 mmol/L; Bilirubin,Total 0.7 mg/dL (0.1-1.2); Blood Urea Nitrogen 9 mg/dL (9-20); Calcium 8.2 mg/dL (8.4-10.2); Carbon Dioxide 27 mmol/L (22-30); Glucose 114 mg/dL (75-100); Potassium 4.6 mmol/L (3.6-5.0); Sodium 137 mmol/L (137-145); Total Protein 6.1 g/dL (6.3-8.2)
[2017-02-01] MEDS: DILAUDID PCA 6MG/30ML IV SCH ×2 (08:31→19:32)
[2017-02-01] MEDS: HEPARIN SUB-Q SCH ×2 (09:09→21:59)
[2017-02-01] MEDS: PEPCID IV SCH ×2 (09:09→21:59)
--- NOTE | 2017-02-01 13:31 | Progress Note ---
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 following Patient continues to have NG tube nothing by mouth status --Anemia Mild drop post surgery, hemoglobin stable for the last 2- 3 days today 9.8, monitor --Low-grade fever, afebrile now Cultures negative to date , supportive care --Hypotension Blood pressures normal range, continue IV fluids --DVT prophylaxis SCDs, no pharmacologic anticoagulation in view of postoperative state Out of bed to chair as tolerated Patient is stable enough to be transferred out of ICU Surgery and urology note reviewed History Interval history: Patient seen and evaluated medical records reviewed Patient passed flatus, after receiving milk of magnesia had a bowel movement NG tube is still in place, removing if okay with primary team urologist No new complaints Alert awake oriented 3 not in acute distress vital signs reviewed stable Hospitalist Physical - Constitutional Vitals: Temp Pulse Resp BP Pulse Ox 98.4 F 82 16 104/78 98 02/01/17 12:00 02/01/17 12:00 02/01/17 12:00 02/01/17 12:00 02/01/17 12:00 General appearance: Present: no acute distress, well-nourished - EENT Eyes: Present: PERRL, EOM intact - Neck Neck: Present: supple, normal ROM - Respiratory Respiratory effort: normal Respiratory: bilateral: diminished, negative: rales, rhonchi, wheezing - Cardiovascular Rhythm: regular Heart Sounds: Present: S1 & S2 - Extremities Extremities: no ischemia, pulses intact, pulses symmetrical Peripheral Pulses: within normal limits - Abdominal General gastrointestinal: soft, non-tender, non-distended, normal bowel sounds - Integumentary Integumentary: Present: clear, warm - Psychiatric Psychiatric: appropriate mood/affect, cooperative - Neurologic Neurologic: CNII-XII intact Results - Labs CBC & Chem 7: 01/31/17 05:03 02/01/17 04:12 Labs: Laboratory Last Values WBC 10.0 K/mm3 (4.5-11.0) 01/31/17 05:03 RBC 3.67 M/mm3 (3.65-5.03) 01/31/17 05:03 Hgb 10.0 gm/dl (11.8-15.2) L 01/31/17 05:03 Hct 31.3 % (35.5-45.6) L 01/31/17 05:03 MCV 85 fl (84-94) 01/31/17 05:03 MCH 27 pg (28-32) L 01/31/17 05:03 MCHC 32 % (32-34) 01/31/17 05:03 RDW 15.0 % (13.2-15.2) 01/31/17 05:03 Plt Count 248 K/mm3 (140-440) 01/31/17 05:03 Lymph % (Auto) 16.4 % (13.4-35.0) 01/31/17 05:03 [place] % (Auto) 10.9 % (0.0-7.3) H 01/31/17 05:03 Eos % (Auto) 3.9 % (0.0-4.3) 01/31/17 05:03 Baso % (Auto) 0.5 % (0.0-1.8) 01/31/17 05:03 Lymph # 1.6 K/mm3 (1.2-5.4) 01/31/17 05:03 [place] # 1.1 K/mm3 (0.0-0.8) H 01/31/17 05:03 Eos # 0.4 K/mm3 (0.0-0.4) 01/31/17 05:03 Baso # 0.0 K/mm3 (0.0-0.1) 01/31/17 05:03 Add Manual Diff Complete 01/26/17 Unknown Total Counted 100 01/26/17 Unknown Seg Neutrophils % 68.3 % (40.0-70.0) 01/31/17 05:03 Seg Neuts % (Manual) 90.0 % (40.0-70.0) H 01/26/17 Unknown Band Neutrophils % 0 % 01/26/17 Unknown Lymphocytes % (Manual) 5.0 % (13.4-35.0) L 01/26/17 Unknown Reactive Lymphs % (Man) 0 % 01/26/17 Unknown Monocytes % (Manual) 5.0 % (0.0-7.3) 01/26/17 Unknown Eosinophils % (Manual) 0 % (0.0-4.3) 01/26/17 Unknown Basophils % (Manual) 0 % (0.0-1.8) 01/26/17 Unknown Metamyelocytes % 0 % 01/26/17 Unknown Myelocytes % 0 % 01/26/17 Unknown Promyelocytes % 0 % 01/26/17 Unknown Blast Cells % 0 % 01/26/17 Unknown Nucleated RBC % Not Reportable 01/26/17 Unknown Seg Neutrophils # 6.8 K/mm3 (1.8-7.7) 01/31/17 05:03 Seg Neutrophils # Man 14.4 K/mm3 (1.8-7.7) H 01/26/17 Unknown Band Neutrophils # 0.0 K/mm3 01/26/17 Unknown Lymphocytes # (Manual) 0.8 K/mm3 (1.2-5.4) L 01/26/17 Unknown Abs React Lymphs (Man) 0.0 K/mm3 01/26/17 Unknown Monocytes # (Manual) 0.8 K/mm3 (0.0-0.8) 01/26/17 Unknown Eosinophils # (Manual) 0.0 K/mm3 (0.0-0.4) 01/26/17 Unknown Basophils # (Manual) 0.0 K/mm3 (0.0-0.1) 01/26/17 Unknown Metamyelocytes # 0.0 K/mm3 01/26/17 Unknown Myelocytes # 0.0 K/mm3 01/26/17 Unknown Promyelocytes # 0.0 K/mm3 01/26/17 Unknown Blast Cells # 0.0 K/mm3 01/26/17 Unknown WBC Morphology Not Reportable 01/26/17 Unknown Hypersegmented Neuts Not Reportable 01/26/17 Unknown Hyposegmented Neuts Not Reportable 01/26/17 Unknown Hypogranular Neuts Not Reportable 01/26/17 Unknown Smudge Cells Not Reportable 01/26/17 Unknown Toxic Granulation Not Reportable 01/26/17 Unknown Toxic Vacuolation Not Reportable 01/26/17 Unknown Dohle Bodies Not Reportable 01/26/17 Unknown Pelger-Huet Anomaly Not Reportable 01/26/17 Unknown Sara Rods Not Reportable 01/26/17 Unknown Platelet Estimate Consistent w auto 01/26/17 Unknown Clumped Platelets Not Reportable 01/26/17 Unknown Plt Clumps, EDTA Not Reportable 01/26/17 Unknown Large Platelets Not Reportable 01/26/17 Unknown Giant Platelets Not Reportable 01/26/17 Unknown Platelet Satelliting Not Reportable 01/26/17 Unknown Plt Morphology Comment Not Reportable 01/26/17 Unknown RBC Morphology Not Reportable 01/26/17 Unknown Dimorphic RBCs Not Reportable 01/26/17 Unknown Polychromasia Not Reportable 01/26/17 Unknown Hypochromasia Not Reportable 01/26/17 Unknown Poikilocytosis Not Reportable 01/26/17 Unknown Anisocytosis 1+ 01/26/17 Unknown Microcytosis Not Reportable 01/26/17 Unknown Macrocytosis Not Reportable 01/26/17 Unknown Spherocytes Not Reportable 01/26/17 Unknown Pappenheimer Bodies Not Reportable 01/26/17 Unknown Sickle Cells Not Reportable 01/26/17 Unknown Target Cells Not Reportable 01/26/17 Unknown Tear Drop Cells Not Reportable 01/26/17 Unknown Ovalocytes Not Reportable 01/26/17 Unknown Helmet Cells Not Reportable 01/26/17 Unknown [place] Bodies Not Reportable 01/26/17 Unknown [place] Rings Not Reportable 01/26/17 Unknown [place] Cells Not Reportable 01/26/17 Unknown Bite Cells Not Reportable 01/26/17 Unknown Crenated Cell Not Reportable 01/26/17 Unknown Elliptocytes Not Reportable 01/26/17 Unknown Acanthocytes (Spur) Not Reportable 01/26/17 Unknown Rouleaux Not Reportable 01/26/17 Unknown Hemoglobin C Crystals Not Reportable 01/26/17 Unknown Schistocytes Not Reportable 01/26/17 Unknown Malaria parasites Not Reportable 01/26/17 Unknown Juan M Bodies Not Reportable 01/26/17 Unknown Hem Pathologist Commnt No 01/26/17 Unknown PT 14.9 Sec. (12.2-14.9) 01/26/17 17:53 INR 1.18 (0.87-1.13) H 01/26/17 17:53 APTT 24.9 Sec. (24.2-36.6) 01/26/17 17:53 Sodium 137 mmol/L (137-145) 02/01/17 04:12 Potassium 4.6 mmol/L (3.6-5.0) 02/01/17 04:12 Chloride 101.0 mmol/L (98-107) 02/01/17 04:12 Carbon Dioxide 27 mmol/L (22-30) 02/01/17 04:12 Anion Gap 14 mmol/L 02/01/17 04:12 BUN 9 mg/dL (9-20) 02/01/17 04:12 Creatinine 0.9 mg/dL (0.8-1.5) 02/01/17 04:12 Estimated GFR > 60 ml/min 02/01/17 04:12 BUN/Creatinine Ratio 10.00 % 02/01/17 04:12 Glucose 114 mg/dL (75-100) H 02/01/17 04:12 Calcium 8.2 mg/dL (8.4-10.2) L 02/01/17 04:12 Phosphorus 4.0 mg/dL (2.5-4.5) 02/01/17 04:12 Magnesium 2.0 mg/dL (1.7-2.3) 02/01/17 04:12 Total Bilirubin 0.7 mg/dL (0.1-1.2) 02/01/17 04:12 AST 12 units/L (5-40) 02/01/17 04:12 ALT 15 units/L (7-56) 02/01/17 04:12 Alkaline Phosphatase 52 units/L (35-129) 02/01/17 04:12 Total Protein 6.1 g/dL (6.3-8.2) L 02/01/17 04:12 Albumin 3.2 g/dL (3.9-5) L 02/01/17 04:12 Albumin/Globulin Ratio 1.1 % 02/01/17 04:12 Blood Type O POSITIVE 01/26/17 10:45 Antibody Screen Negative 01/26/17 10:45 Crossmatch See Detail 01/26/17 10:45
--- NOTE | 2017-02-01 14:43 | Progress Note ---
Subjective Patient Reports: Positive: feels better, pain is less, bowel movement. Negative : flatus Narrative: doing fine , had 2 BMs , will advance diet, Objective Vital Signs - 12hr 02/01/17 02/01/17 02/01/17 03:00 04:00 05:00 Temperature 98.3 F Pulse Rate 84 84 82 Respiratory 17 12 13 Rate Respiratory Rate [Back] Blood Pressure 111/73 107/75 105/67 O2 Sat by Pulse 94 96 92 Oximetry 02/01/17 02/01/17 02/01/17 06:00 07:00 08:00 Temperature 98.3 F Pulse Rate 81 75 79 Respiratory 12 14 12 Rate Respiratory Rate [Back] Blood Pressure 94/57 107/76 116/80 O2 Sat by Pulse 93 92 99 Oximetry 02/01/17 02/01/17 02/01/17 09:00 10:00 11:00 Temperature Pulse Rate 79 87 94 H Respiratory 15 15 19 Rate Respiratory 16 Rate [Back] Blood Pressure 120/79 120/79 104/75 O2 Sat by Pulse 95 96 95 Oximetry 02/01/17 12:00 Temperature 98.4 F Pulse Rate 82 Respiratory 16 Rate Respiratory Rate [Back] Blood Pressure 104/78 O2 Sat by Pulse 98 Oximetry - Labs 01/31/17 05:03 02/01/17 04:12 Diabetes panel 02/01/17 Range/Units 04:12 Sodium 137 (137-145) mmol/L Potassium 4.6 (3.6-5.0) mmol/L Chloride 101.0 (98-107) mmol/L Carbon Dioxide 27 (22-30) mmol/L BUN 9 (9-20) mg/dL Creatinine 0.9 (0.8-1.5) mg/dL Glucose 114 H (75-100) mg/dL Calcium 8.2 L (8.4-10.2) mg/dL AST 12 (5-40) units/L ALT 15 (7-56) units/L Alkaline Phosphatase 52 (35-129) units/L Total Protein 6.1 L (6.3-8.2) g/dL Albumin 3.2 L (3.9-5) g/dL Calcium panel 02/01/17 Range/Units 04:12 Calcium 8.2 L (8.4-10.2) mg/dL Phosphorus 4.0 (2.5-4.5) mg/dL Albumin 3.2 L (3.9-5) g/dL Pituitary panel 02/01/17 Range/Units 04:12 Sodium 137 (137-145) mmol/L Potassium 4.6 (3.6-5.0) mmol/L Chloride 101.0 (98-107) mmol/L Carbon Dioxide 27 (22-30) mmol/L BUN 9 (9-20) mg/dL Creatinine 0.9 (0.8-1.5) mg/dL Glucose 114 H (75-100) mg/dL Calcium 8.2 L (8.4-10.2) mg/dL Adrenal panel 02/01/17 Range/Units 04:12 Sodium 137 (137-145) mmol/L Potassium 4.6 (3.6-5.0) mmol/L Chloride 101.0 (98-107) mmol/L Carbon Dioxide 27 (22-30) mmol/L BUN 9 (9-20) mg/dL Creatinine 0.9 (0.8-1.5) mg/dL Glucose 114 H (75-100) mg/dL Calcium 8.2 L (8.4-10.2) mg/dL Total Bilirubin 0.7 (0.1-1.2) mg/dL AST 12 (5-40) units/L ALT 15 (7-56) units/L Alkaline Phosphatase 52 (35-129) units/L Total Protein 6.1 L (6.3-8.2) g/dL Albumin 3.2 L (3.9-5) g/dL
[2017-02-01] MEDS: NORCO 5/325 PO PRN (21:56)
[2017-02-01] MEDS: REGLAN IV PRN (23:10)
[2017-02-01] MEDS: MORPHINE IV PRN (23:10)
[2017-02-02] MEDS: REGLAN IV PRN (05:45)
[2017-02-02] MEDS: NORCO 5/325 PO PRN (05:45)
[2017-02-02] MEDS: D5W/0.45% NACL/KCL 20 MEQ 20 MEQ/1,000 ML BAG IV SCH ×2 (05:46→23:02)
--- NOTE | 2017-02-02 07:53 | Progress Note ---
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 following, advance diet as tolerated --Anemia, stable H&H --Low-grade fever, afebrile now Cultures negative to date , supportive care --Hypotension, resolved Blood pressures normal range, continue IV fluids --DVT prophylaxis SCDs, no pharmacologic anticoagulation in view of postoperative state Out of bed to chair as tolerated Transfer to medical floor Physical therapy Closely monitor patient and just the management as needed Plan of care discussed with the patient as well as his nurse History Interval history: Patient seen and evaluated tolerated clear liquids no new complaints Alert awake oriented 3 not in acute distress Hospitalist Physical - Constitutional Vitals: Temp Pulse Resp BP Pulse Ox 98.8 F 83 17 106/36 91 02/02/17 04:00 02/02/17 06:00 02/02/17 06:00 02/02/17 06:00 02/02/17 06:00 General appearance: Present: no acute distress, well-nourished - EENT Eyes: Present: PERRL, EOM intact - Neck Neck: Present: supple, normal ROM - Respiratory Respiratory effort: normal Respiratory: negative: rales, rhonchi, wheezing - Cardiovascular Rhythm: regular Heart Sounds: Present: S1 & S2 - Extremities Extremities: no ischemia, pulses intact, pulses symmetrical Peripheral Pulses: within normal limits - Abdominal General gastrointestinal: soft, non-tender, non-distended, normal bowel sounds - Integumentary Integumentary: Present: clear, warm - Psychiatric Psychiatric: appropriate mood/affect, cooperative - Neurologic Neurologic: CNII-XII intact, moves all extremities Results - Labs CBC & Chem 7: 01/31/17 05:03 02/01/17 04:12 Labs: Laboratory Last Values WBC 10.0 K/mm3 (4.5-11.0) 01/31/17 05:03 RBC 3.67 M/mm3 (3.65-5.03) 01/31/17 05:03 Hgb 10.0 gm/dl (11.8-15.2) L 01/31/17 05:03 Hct 31.3 % (35.5-45.6) L 01/31/17 05:03 MCV 85 fl (84-94) 01/31/17 05:03 MCH 27 pg (28-32) L 01/31/17 05:03 MCHC 32 % (32-34) 01/31/17 05:03 RDW 15.0 % (13.2-15.2) 01/31/17 05:03 Plt Count 248 K/mm3 (140-440) 01/31/17 05:03 Lymph % (Auto) 16.4 % (13.4-35.0) 01/31/17 05:03 [place] % (Auto) 10.9 % (0.0-7.3) H 01/31/17 05:03 Eos % (Auto) 3.9 % (0.0-4.3) 01/31/17 05:03 Baso % (Auto) 0.5 % (0.0-1.8) 01/31/17 05:03 Lymph # 1.6 K/mm3 (1.2-5.4) 01/31/17 05:03 [place] # 1.1 K/mm3 (0.0-0.8) H 01/31/17 05:03 Eos # 0.4 K/mm3 (0.0-0.4) 01/31/17 05:03 Baso # 0.0 K/mm3 (0.0-0.1) 01/31/17 05:03 Add Manual Diff Complete 01/26/17 Unknown Total Counted 100 01/26/17 Unknown Seg Neutrophils % 68.3 % (40.0-70.0) 01/31/17 05:03 Seg Neuts % (Manual) 90.0 % (40.0-70.0) H 01/26/17 Unknown Band Neutrophils % 0 % 01/26/17 Unknown Lymphocytes % (Manual) 5.0 % (13.4-35.0) L 01/26/17 Unknown Reactive Lymphs % (Man) 0 % 01/26/17 Unknown Monocytes % (Manual) 5.0 % (0.0-7.3) 01/26/17 Unknown Eosinophils % (Manual) 0 % (0.0-4.3) 01/26/17 Unknown Basophils % (Manual) 0 % (0.0-1.8) 01/26/17 Unknown Metamyelocytes % 0 % 01/26/17 Unknown Myelocytes % 0 % 01/26/17 Unknown Promyelocytes % 0 % 01/26/17 Unknown Blast Cells % 0 % 01/26/17 Unknown Nucleated RBC % Not Reportable 01/26/17 Unknown Seg Neutrophils # 6.8 K/mm3 (1.8-7.7) 01/31/17 05:03 Seg Neutrophils # Man 14.4 K/mm3 (1.8-7.7) H 01/26/17 Unknown Band Neutrophils # 0.0 K/mm3 01/26/17 Unknown Lymphocytes # (Manual) 0.8 K/mm3 (1.2-5.4) L 01/26/17 Unknown Abs React Lymphs (Man) 0.0 K/mm3 01/26/17 Unknown Monocytes # (Manual) 0.8 K/mm3 (0.0-0.8) 01/26/17 Unknown Eosinophils # (Manual) 0.0 K/mm3 (0.0-0.4) 01/26/17 Unknown Basophils # (Manual) 0.0 K/mm3 (0.0-0.1) 01/26/17 Unknown Metamyelocytes # 0.0 K/mm3 01/26/17 Unknown Myelocytes # 0.0 K/mm3 01/26/17 Unknown Promyelocytes # 0.0 K/mm3 01/26/17 Unknown Blast Cells # 0.0 K/mm3 01/26/17 Unknown WBC Morphology Not Reportable 01/26/17 Unknown Hypersegmented Neuts Not Reportable 01/26/17 Unknown Hyposegmented Neuts Not Reportable 01/26/17 Unknown Hypogranular Neuts Not Reportable 01/26/17 Unknown Smudge Cells Not Reportable 01/26/17 Unknown Toxic Granulation Not Reportable 01/26/17 Unknown Toxic Vacuolation Not Reportable 01/26/17 Unknown Dohle Bodies Not Reportable 01/26/17 Unknown Pelger-Huet Anomaly Not Reportable 01/26/17 Unknown Sara Rods Not Reportable 01/26/17 Unknown Platelet Estimate Consistent w auto 01/26/17 Unknown Clumped Platelets Not Reportable 01/26/17 Unknown Plt Clumps, EDTA Not Reportable 01/26/17 Unknown Large Platelets Not Reportable 01/26/17 Unknown Giant Platelets Not Reportable 01/26/17 Unknown Platelet Satelliting Not Reportable 01/26/17 Unknown Plt Morphology Comment Not Reportable 01/26/17 Unknown RBC Morphology Not Reportable 01/26/17 Unknown Dimorphic RBCs Not Reportable 01/26/17 Unknown Polychromasia Not Reportable 01/26/17 Unknown Hypochromasia Not Reportable 01/26/17 Unknown Poikilocytosis Not Reportable 01/26/17 Unknown Anisocytosis 1+ 01/26/17 Unknown Microcytosis Not Reportable 01/26/17 Unknown Macrocytosis Not Reportable 01/26/17 Unknown Spherocytes Not Reportable 01/26/17 Unknown Pappenheimer Bodies Not Reportable 01/26/17 Unknown Sickle Cells Not Reportable 01/26/17 Unknown Target Cells Not Reportable 01/26/17 Unknown Tear Drop Cells Not Reportable 01/26/17 Unknown Ovalocytes Not Reportable 01/26/17 Unknown Helmet Cells Not Reportable 01/26/17 Unknown [place] Bodies Not Reportable 01/26/17 Unknown [place] Rings Not Reportable 01/26/17 Unknown [place] Cells Not Reportable 01/26/17 Unknown Bite Cells Not Reportable 01/26/17 Unknown Crenated Cell Not Reportable 01/26/17 Unknown Elliptocytes Not Reportable 01/26/17 Unknown Acanthocytes (Spur) Not Reportable 01/26/17 Unknown Rouleaux Not Reportable 01/26/17 Unknown Hemoglobin C Crystals Not Reportable 01/26/17 Unknown Schistocytes Not Reportable 01/26/17 Unknown Malaria parasites Not Reportable 01/26/17 Unknown Juan M Bodies Not Reportable 01/26/17 Unknown Hem Pathologist Commnt No 01/26/17 Unknown PT 14.9 Sec. (12.2-14.9) 01/26/17 17:53 INR 1.18 (0.87-1.13) H 01/26/17 17:53 APTT 24.9 Sec. (24.2-36.6) 01/26/17 17:53 Sodium 137 mmol/L (137-145) 02/01/17 04:12 Potassium 4.6 mmol/L (3.6-5.0) 02/01/17 04:12 Chloride 101.0 mmol/L (98-107) 02/01/17 04:12 Carbon Dioxide 27 mmol/L (22-30) 02/01/17 04:12 Anion Gap 14 mmol/L 02/01/17 04:12 BUN 9 mg/dL (9-20) 02/01/17 04:12 Creatinine 0.9 mg/dL (0.8-1.5) 02/01/17 04:12 Estimated GFR > 60 ml/min 02/01/17 04:12 BUN/Creatinine Ratio 10.00 % 02/01/17 04:12 Glucose 114 mg/dL (75-100) H 02/01/17 04:12 POC Glucose 118 (70-105) H 02/02/17 05:54 Calcium 8.2 mg/dL (8.4-10.2) L 02/01/17 04:12 Phosphorus 4.0 mg/dL (2.5-4.5) 02/01/17 04:12 Magnesium 2.0 mg/dL (1.7-2.3) 02/01/17 04:12 Total Bilirubin 0.7 mg/dL (0.1-1.2) 02/01/17 04:12 AST 12 units/L (5-40) 02/01/17 04:12 ALT 15 units/L (7-56) 02/01/17 04:12 Alkaline Phosphatase 52 units/L (35-129) 02/01/17 04:12 Total Protein 6.1 g/dL (6.3-8.2) L 02/01/17 04:12 Albumin 3.2 g/dL (3.9-5) L 02/01/17 04:12 Albumin/Globulin Ratio 1.1 % 02/01/17 04:12 Blood Type O POSITIVE 01/26/17 10:45 Antibody Screen Negative 01/26/17 10:45 Crossmatch See Detail 01/26/17 10:45
[2017-02-02] MEDS: DILAUDID PCA 6MG/30ML IV SCH (09:55)
[2017-02-02] MEDS: HEPARIN SUB-Q SCH ×2 (09:56→22:08)
[2017-02-02] MEDS: PEPCID PO SCH ×2 (09:56→22:06)
--- NOTE | 2017-02-02 12:13 | Progress Note ---
Subjective Narrative: talk to RN Pt may go to the floor ,tolerating PO well . Objective Vital Signs - 12hr 02/02/17 02/02/17 02/02/17 01:00 02:00 03:00 Temperature Pulse Rate 86 84 79 Respiratory 13 15 19 Rate Blood Pressure 126/70 117/82 107/71 O2 Sat by Pulse 92 92 92 Oximetry 02/02/17 02/02/17 02/02/17 04:00 05:00 06:00 Temperature 98.8 F Pulse Rate 81 76 83 Respiratory 20 15 17 Rate Blood Pressure 111/76 121/77 106/36 O2 Sat by Pulse 98 94 91 Oximetry 02/02/17 02/02/17 02/02/17 07:01 08:00 08:01 Temperature 98.4 F Pulse Rate 78 83 Respiratory 19 15 19 Rate Blood Pressure 132/78 140/89 O2 Sat by Pulse 93 94 Oximetry 02/02/17 02/02/17 02/02/17 09:00 09:52 10:01 Temperature Pulse Rate 79 80 Respiratory 23 14 25 H Rate Blood Pressure 120/73 138/80 O2 Sat by Pulse 93 93 Oximetry 02/02/17 02/02/17 11:00 11:58 Temperature 98.0 F Pulse Rate 79 Respiratory 20 Rate Blood Pressure 126/91 O2 Sat by Pulse 94 Oximetry - Labs 01/31/17 05:03 02/01/17 04:12
[2017-02-02] MEDS: ZOFRAN IV PRN (18:14)
[2017-02-02] MEDS: DULCOLAX PR PRN (22:05)
[2017-02-02] MEDS: MORPHINE IV PRN (22:33)
[2017-02-03] MEDS ORDERED: FLEET PR ONE (01:06)
[2017-02-03] MEDS: MORPHINE IV PRN ×2 (02:35→19:56)
--- NOTE | 2017-02-03 09:10 | Progress Note ---
Assessment and Plan nausea and vomiting uyesterday spoke with Dr Gregory robles soft incisional tenderness KUB +BM yesterday Subjective Date of service: 02/03/17 Principal diagnosis: bladder cancer Objective - Constitutional Vitals: Vital Signs - 12hr 02/02/17 02/02/17 02/02/17 22:00 22:33 23:03 Respiratory 20 20 Rate Respiratory 21 Rate [Back] 02/03/17 02/03/17 02:35 03:05 Respiratory 20 21 Rate Respiratory Rate [Back] General appearance: Present: no acute distress - Respiratory Respiratory effort: normal Extremities: no ischemia - Gastrointestinal General gastrointestinal: Present: soft, tender - Labs CBC & Chem 7: 01/31/17 05:03 02/01/17 04:12 Labs: Abnormal lab results 02/02/17 02/02/17 02/03/17 Range/Units 11:15 16:27 05:36 POC Glucose 137 H 116 H 113 H (70-105)
--- NOTE | 2017-02-03 10:40 | XRay Report ---
Abdomen 2 views: History: Vomiting. Findings: No acute cardiopulmonary findings. No free intraperitoneal air. Distended loops of small bowel with minimal air in large bowel. No significant interval change compared to 01/30/17. Impression: No significant interval change compared to previous study.
[2017-02-03] MEDS: HEPARIN SUB-Q SCH ×2 (10:45→22:58)
[2017-02-03] MEDS: PEPCID PO SCH ×2 (10:45→22:59)
[2017-02-03] MEDS: NORCO 5/325 PO PRN (11:03)
--- NOTE | 2017-02-03 11:51 | Progress Note ---
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 following, advance diet as tolerated --Anemia, stable H&H --Low-grade fever, afebrile now Cultures negative to date , supportive care --Hypotension, resolved Blood pressures normal range, continue IV fluids --DVT prophylaxis SCDs, no pharmacologic anticoagulation in view of postoperative state Out of bed to chair as tolerated Physical therapy, ambulate as tolerated Plan of care discussed with the patient as well as his nurse History Interval history: Patient seen and evaluated in his room this morning medical records reviewed Patient is tolerating soft diet, had bowel movement this morning Denies nausea vomiting or abdominal pain Alert awake oriented 3 not in acute distress Vital signs reviewed stable Hospitalist Physical - Constitutional Vitals: Temp Pulse Resp BP Pulse Ox 98.9 F 92 H 18 110/69 92 02/03/17 08:00 02/03/17 08:00 02/03/17 08:00 02/03/17 08:00 02/03/17 08:00 General appearance: Present: no acute distress, well-nourished - EENT Eyes: Present: PERRL, EOM intact - Neck Neck: Present: supple, normal ROM - Respiratory Respiratory effort: normal Respiratory: bilateral: diminished, negative: rales, rhonchi, wheezing - Cardiovascular Rhythm: regular Heart Sounds: Present: S1 & S2 - Extremities Extremities: no ischemia, pulses intact, pulses symmetrical - Abdominal General gastrointestinal: soft, non-tender, non-distended, normal bowel sounds - Integumentary Integumentary: Present: clear, warm - Psychiatric Psychiatric: appropriate mood/affect, cooperative - Neurologic Neurologic: CNII-XII intact, moves all extremities Results - Labs CBC & Chem 7: 01/31/17 05:03 02/01/17 04:12 Labs: Laboratory Last Values WBC 10.0 K/mm3 (4.5-11.0) 01/31/17 05:03 RBC 3.67 M/mm3 (3.65-5.03) 01/31/17 05:03 Hgb 10.0 gm/dl (11.8-15.2) L 01/31/17 05:03 Hct 31.3 % (35.5-45.6) L 01/31/17 05:03 MCV 85 fl (84-94) 01/31/17 05:03 MCH 27 pg (28-32) L 01/31/17 05:03 MCHC 32 % (32-34) 01/31/17 05:03 RDW 15.0 % (13.2-15.2) 01/31/17 05:03 Plt Count 248 K/mm3 (140-440) 01/31/17 05:03 Lymph % (Auto) 16.4 % (13.4-35.0) 01/31/17 05:03 [place] % (Auto) 10.9 % (0.0-7.3) H 01/31/17 05:03 Eos % (Auto) 3.9 % (0.0-4.3) 01/31/17 05:03 Baso % (Auto) 0.5 % (0.0-1.8) 01/31/17 05:03 Lymph # 1.6 K/mm3 (1.2-5.4) 01/31/17 05:03 [place] # 1.1 K/mm3 (0.0-0.8) H 01/31/17 05:03 Eos # 0.4 K/mm3 (0.0-0.4) 01/31/17 05:03 Baso # 0.0 K/mm3 (0.0-0.1) 01/31/17 05:03 Add Manual Diff Complete 01/26/17 Unknown Total Counted 100 01/26/17 Unknown Seg Neutrophils % 68.3 % (40.0-70.0) 01/31/17 05:03 Seg Neuts % (Manual) 90.0 % (40.0-70.0) H 01/26/17 Unknown Band Neutrophils % 0 % 01/26/17 Unknown Lymphocytes % (Manual) 5.0 % (13.4-35.0) L 01/26/17 Unknown Reactive Lymphs % (Man) 0 % 01/26/17 Unknown Monocytes % (Manual) 5.0 % (0.0-7.3) 01/26/17 Unknown Eosinophils % (Manual) 0 % (0.0-4.3) 01/26/17 Unknown Basophils % (Manual) 0 % (0.0-1.8) 01/26/17 Unknown Metamyelocytes % 0 % 01/26/17 Unknown Myelocytes % 0 % 01/26/17 Unknown Promyelocytes % 0 % 01/26/17 Unknown Blast Cells % 0 % 01/26/17 Unknown Nucleated RBC % Not Reportable 01/26/17 Unknown Seg Neutrophils # 6.8 K/mm3 (1.8-7.7) 01/31/17 05:03 Seg Neutrophils # Man 14.4 K/mm3 (1.8-7.7) H 01/26/17 Unknown Band Neutrophils # 0.0 K/mm3 01/26/17 Unknown Lymphocytes # (Manual) 0.8 K/mm3 (1.2-5.4) L 01/26/17 Unknown Abs React Lymphs (Man) 0.0 K/mm3 01/26/17 Unknown Monocytes # (Manual) 0.8 K/mm3 (0.0-0.8) 01/26/17 Unknown Eosinophils # (Manual) 0.0 K/mm3 (0.0-0.4) 01/26/17 Unknown Basophils # (Manual) 0.0 K/mm3 (0.0-0.1) 01/26/17 Unknown Metamyelocytes # 0.0 K/mm3 01/26/17 Unknown Myelocytes # 0.0 K/mm3 01/26/17 Unknown Promyelocytes # 0.0 K/mm3 01/26/17 Unknown Blast Cells # 0.0 K/mm3 01/26/17 Unknown WBC Morphology Not Reportable 01/26/17 Unknown Hypersegmented Neuts Not Reportable 01/26/17 Unknown Hyposegmented Neuts Not Reportable 01/26/17 Unknown Hypogranular Neuts Not Reportable 01/26/17 Unknown Smudge Cells Not Reportable 01/26/17 Unknown Toxic Granulation Not Reportable 01/26/17 Unknown Toxic Vacuolation Not Reportable 01/26/17 Unknown Dohle Bodies Not Reportable 01/26/17 Unknown Pelger-Huet Anomaly Not Reportable 01/26/17 Unknown Sara Rods Not Reportable 01/26/17 Unknown Platelet Estimate Consistent w auto 01/26/17 Unknown Clumped Platelets Not Reportable 01/26/17 Unknown Plt Clumps, EDTA Not Reportable 01/26/17 Unknown Large Platelets Not Reportable 01/26/17 Unknown Giant Platelets Not Reportable 01/26/17 Unknown Platelet Satelliting Not Reportable 01/26/17 Unknown Plt Morphology Comment Not Reportable 01/26/17 Unknown RBC Morphology Not Reportable 01/26/17 Unknown Dimorphic RBCs Not Reportable 01/26/17 Unknown Polychromasia Not Reportable 01/26/17 Unknown Hypochromasia Not Reportable 01/26/17 Unknown Poikilocytosis Not Reportable 01/26/17 Unknown Anisocytosis 1+ 01/26/17 Unknown Microcytosis Not Reportable 01/26/17 Unknown Macrocytosis Not Reportable 01/26/17 Unknown Spherocytes Not Reportable 01/26/17 Unknown Pappenheimer Bodies Not Reportable 01/26/17 Unknown Sickle Cells Not Reportable 01/26/17 Unknown Target Cells Not Reportable 01/26/17 Unknown Tear Drop Cells Not Reportable 01/26/17 Unknown Ovalocytes Not Reportable 01/26/17 Unknown Helmet Cells Not Reportable 01/26/17 Unknown [place] Bodies Not Reportable 01/26/17 Unknown [place] Rings Not Reportable 01/26/17 Unknown Davin Cells Not Reportable 01/26/17 Unknown Bite Cells Not Reportable 01/26/17 Unknown Crenated Cell Not Reportable 01/26/17 Unknown Elliptocytes Not Reportable 01/26/17 Unknown Acanthocytes (Spur) Not Reportable 01/26/17 Unknown Rouleaux Not Reportable 01/26/17 Unknown Hemoglobin C Crystals Not Reportable 01/26/17 Unknown Schistocytes Not Reportable 01/26/17 Unknown Malaria parasites Not Reportable 01/26/17 Unknown Juan M Bodies Not Reportable 01/26/17 Unknown Hem Pathologist Commnt No 01/26/17 Unknown PT 14.9 Sec. (12.2-14.9) 01/26/17 17:53 INR 1.18 (0.87-1.13) H 01/26/17 17:53 APTT 24.9 Sec. (24.2-36.6) 01/26/17 17:53 Sodium 137 mmol/L (137-145) 02/01/17 04:12 Potassium 4.6 mmol/L (3.6-5.0) 02/01/17 04:12 Chloride 101.0 mmol/L (98-107) 02/01/17 04:12 Carbon Dioxide 27 mmol/L (22-30) 02/01/17 04:12 Anion Gap 14 mmol/L 02/01/17 04:12 BUN 9 mg/dL (9-20) 02/01/17 04:12 Creatinine 0.9 mg/dL (0.8-1.5) 02/01/17 04:12 Estimated GFR > 60 ml/min 02/01/17 04:12 BUN/Creatinine Ratio 10.00 % 02/01/17 04:12 Glucose 114 mg/dL (75-100) H 02/01/17 04:12 POC Glucose 74 (70-105) 02/03/17 07:45 Calcium 8.2 mg/dL (8.4-10.2) L 02/01/17 04:12 Phosphorus 4.0 mg/dL (2.5-4.5) 02/01/17 04:12 Magnesium 2.0 mg/dL (1.7-2.3) 02/01/17 04:12 Total Bilirubin 0.7 mg/dL (0.1-1.2) 02/01/17 04:12 AST 12 units/L (5-40) 02/01/17 04:12 ALT 15 units/L (7-56) 02/01/17 04:12 Alkaline Phosphatase 52 units/L (35-129) 02/01/17 04:12 Total Protein 6.1 g/dL (6.3-8.2) L 02/01/17 04:12 Albumin 3.2 g/dL (3.9-5) L 02/01/17 04:12 Albumin/Globulin Ratio 1.1 % 02/01/17 04:12 Blood Type O POSITIVE 01/26/17 10:45 Antibody Screen Negative 01/26/17 10:45 Crossmatch See Detail 01/26/17 10:45
--- NOTE | 2017-02-03 14:54 | Progress Note ---
Subjective Patient Reports: Positive: feels better, still having pain, pain is less, flatus , bowel movement Narrative: had 2bms today total 3, will check kub in AM , and bmp .Pt ambulatory . will go slow with PO , K 4.6 TPN ? Objective Vital Signs - 12hr 02/03/17 02/03/17 03:05 08:00 Temperature 98.9 F Pulse Rate [ 92 H Right Dorsalis Pedis] Respiratory 21 18 Rate Blood Pressure 110/69 [Left Arm] O2 Sat by Pulse 95 Oximetry - Labs 01/31/17 05:03 02/01/17 04:12
[2017-02-03] MEDS ORDERED: MILK OF MAGNESIA PO ONE (15:00)
[2017-02-03] MEDS ORDERED: D5W/0.45% NACL/KCL 20 MEQ 20 MEQ/1,000 ML BAG IV SCH (15:00)
[2017-02-03] MEDS: ZOFRAN IV PRN ×2 (16:09→19:56)
[2017-02-04 05:35] LABS: Anion Gap 17 mmol/L; BUN/Creatinine Ratio 12.22; Blood Urea Nitrogen 11 mg/dL (9-20); Calcium 8.4 mg/dL (8.4-10.2); Carbon Dioxide 25 mmol/L (22-30); Chloride 99.3 mmol/L (98-107); Glucose 111 mg/dL (75-100); Magnesium 2.4 mg/dL (1.7-2.3); Potassium 4.3 mmol/L (3.6-5.0); Sodium 137 mmol/L (137-145)
--- NOTE | 2017-02-04 10:06 | XRay Report ---
ABDOMEN RADIOGRAPHS INDICATION: Small bowel obstruction. COMPARISON: Yesterday. FINDINGS: Frontal abdominal radiographs, 7:58 AM, 02/04/2017 again demonstrate few air-containing mid abdominal small bowel loops dilated up to 5.4 cm, though overall slightly less prominent since the prior exam. Diffuse colonic air also again noted. No focal suspicious calcifications, pneumatosis or pneumoperitoneum, though extensive pelvic postsurgical changes with bilateral ureteral stents converging towards the right lower quadrant/right groin again noted. Clear visualized lung bases. Stable bones. CONCLUSION: Presumed postoperative ileus radiographically with various other findings, as above. CT may help further evaluate for small bowel obstruction, if so suspected clinically. Thank you for the opportunity to participate in this patient's care.
[2017-02-04] MEDS: HEPARIN SUB-Q SCH ×2 (11:05→21:54)
[2017-02-04] MEDS: PEPCID PO SCH (11:06)
--- NOTE | 2017-02-04 11:08 | Progress Note ---
Assessment and Plan pulled out ngt yesterday 2 moreBMs mild nausea abd is soft and not distended good BS per gen surgery hyperal !! Subjective Date of service: 02/04/17 Principal diagnosis: bladder cancer Objective - Constitutional Vitals: Vital Signs - 12hr 02/04/17 03:00 Temperature 99.2 F Pulse Rate [ 94 H None] Respiratory 16 Rate Blood Pressure 124/83 General appearance: Present: no acute distress - Neck Neck: supple - Respiratory Respiratory effort: normal - Gastrointestinal General gastrointestinal: Present: soft (godd and normal BS) - Labs CBC & Chem 7: 01/31/17 05:03 02/04/17 05:04 Labs: Abnormal lab results 02/03/17 02/03/17 02/04/17 Range/Units 12:40 17:15 05:04 Glucose 111 H (75-100) mg/dL POC Glucose 106 H 116 H (70-105) Magnesium 2.4 H (1.7-2.3) mg/dL
[2017-02-04] MEDS ORDERED: MILK OF MAGNESIA PO ONE (11:25)
[2017-02-04] MEDS ORDERED: FLEET PR ONE ×2 (12:14→13:00)
--- NOTE | 2017-02-04 13:13 | Progress Note ---
Assessment and Plan Assessment and plan: --Status postl cystectomy, prostatectomy postop state Continue supportive care, TPN per surgery --Anemia, stable H&H --Hypotension, resolved --DVT prophylaxis SCDs, no pharmacologic anticoagulation in view of postoperative state Out of bed to chair Physical therapy, ambulate as tolerated Plan of care discussed with the patient as well as his nurse History Interval history: Patient feels better, no new complaints Had 2 loose stool, surgery started on TPN Want to go slow on oral diet Patient is alert awake oriented 3 not in acute distress Hospitalist Physical - Constitutional Vitals: Temp Pulse Resp BP Pulse Ox 99.5 F 98 H 16 114/76 95 02/04/17 11:00 02/04/17 11:00 02/04/17 11:00 02/04/17 11:00 02/03/17 08:00 General appearance: Present: no acute distress, well-nourished - EENT Eyes: Present: PERRL, EOM intact - Neck Neck: Present: supple, normal ROM - Respiratory Respiratory effort: normal Respiratory: negative: rales, rhonchi, wheezing - Cardiovascular Rhythm: regular Heart Sounds: Present: S1 & S2 - Extremities Extremities: no ischemia, pulses intact - Abdominal General gastrointestinal: soft, non-tender, non-distended, normal bowel sounds - Integumentary Integumentary: Present: clear, warm - Psychiatric Psychiatric: appropriate mood/affect, cooperative - Neurologic Neurologic: CNII-XII intact, moves all extremities Results - Labs CBC & Chem 7: 01/31/17 05:03 02/04/17 05:04 Labs: Laboratory Last Values WBC 10.0 K/mm3 (4.5-11.0) 01/31/17 05:03 RBC 3.67 M/mm3 (3.65-5.03) 01/31/17 05:03 Hgb 10.0 gm/dl (11.8-15.2) L 01/31/17 05:03 Hct 31.3 % (35.5-45.6) L 01/31/17 05:03 MCV 85 fl (84-94) 01/31/17 05:03 MCH 27 pg (28-32) L 01/31/17 05:03 MCHC 32 % (32-34) 01/31/17 05:03 RDW 15.0 % (13.2-15.2) 01/31/17 05:03 Plt Count 248 K/mm3 (140-440) 01/31/17 05:03 Lymph % (Auto) 16.4 % (13.4-35.0) 01/31/17 05:03 [place] % (Auto) 10.9 % (0.0-7.3) H 01/31/17 05:03 Eos % (Auto) 3.9 % (0.0-4.3) 01/31/17 05:03 Baso % (Auto) 0.5 % (0.0-1.8) 01/31/17 05:03 Lymph # 1.6 K/mm3 (1.2-5.4) 01/31/17 05:03 [place] # 1.1 K/mm3 (0.0-0.8) H 01/31/17 05:03 Eos # 0.4 K/mm3 (0.0-0.4) 01/31/17 05:03 Baso # 0.0 K/mm3 (0.0-0.1) 01/31/17 05:03 Add Manual Diff Complete 01/26/17 Unknown Total Counted 100 01/26/17 Unknown Seg Neutrophils % 68.3 % (40.0-70.0) 01/31/17 05:03 Seg Neuts % (Manual) 90.0 % (40.0-70.0) H 01/26/17 Unknown Band Neutrophils % 0 % 01/26/17 Unknown Lymphocytes % (Manual) 5.0 % (13.4-35.0) L 01/26/17 Unknown Reactive Lymphs % (Man) 0 % 01/26/17 Unknown Monocytes % (Manual) 5.0 % (0.0-7.3) 01/26/17 Unknown Eosinophils % (Manual) 0 % (0.0-4.3) 01/26/17 Unknown Basophils % (Manual) 0 % (0.0-1.8) 01/26/17 Unknown Metamyelocytes % 0 % 01/26/17 Unknown Myelocytes % 0 % 01/26/17 Unknown Promyelocytes % 0 % 01/26/17 Unknown Blast Cells % 0 % 01/26/17 Unknown Nucleated RBC % Not Reportable 01/26/17 Unknown Seg Neutrophils # 6.8 K/mm3 (1.8-7.7) 01/31/17 05:03 Seg Neutrophils # Man 14.4 K/mm3 (1.8-7.7) H 01/26/17 Unknown Band Neutrophils # 0.0 K/mm3 01/26/17 Unknown Lymphocytes # (Manual) 0.8 K/mm3 (1.2-5.4) L 01/26/17 Unknown Abs React Lymphs (Man) 0.0 K/mm3 01/26/17 Unknown Monocytes # (Manual) 0.8 K/mm3 (0.0-0.8) 01/26/17 Unknown Eosinophils # (Manual) 0.0 K/mm3 (0.0-0.4) 01/26/17 Unknown Basophils # (Manual) 0.0 K/mm3 (0.0-0.1) 01/26/17 Unknown Metamyelocytes # 0.0 K/mm3 01/26/17 Unknown Myelocytes # 0.0 K/mm3 01/26/17 Unknown Promyelocytes # 0.0 K/mm3 01/26/17 Unknown Blast Cells # 0.0 K/mm3 01/26/17 Unknown WBC Morphology Not Reportable 01/26/17 Unknown Hypersegmented Neuts Not Reportable 01/26/17 Unknown Hyposegmented Neuts Not Reportable 01/26/17 Unknown Hypogranular Neuts Not Reportable 01/26/17 Unknown Smudge Cells Not Reportable 01/26/17 Unknown Toxic Granulation Not Reportable 01/26/17 Unknown Toxic Vacuolation Not Reportable 01/26/17 Unknown Dohle Bodies Not Reportable 01/26/17 Unknown Pelger-Huet Anomaly Not Reportable 01/26/17 Unknown Sara Rods Not Reportable 01/26/17 Unknown Platelet Estimate Consistent w auto 01/26/17 Unknown Clumped Platelets Not Reportable 01/26/17 Unknown Plt Clumps, EDTA Not Reportable 01/26/17 Unknown Large Platelets Not Reportable 01/26/17 Unknown Giant Platelets Not Reportable 01/26/17 Unknown Platelet Satelliting Not Reportable 01/26/17 Unknown Plt Morphology Comment Not Reportable 01/26/17 Unknown RBC Morphology Not Reportable 01/26/17 Unknown Dimorphic RBCs Not Reportable 01/26/17 Unknown Polychromasia Not Reportable 01/26/17 Unknown Hypochromasia Not Reportable 01/26/17 Unknown Poikilocytosis Not Reportable 01/26/17 Unknown Anisocytosis 1+ 01/26/17 Unknown Microcytosis Not Reportable 01/26/17 Unknown Macrocytosis Not Reportable 01/26/17 Unknown Spherocytes Not Reportable 01/26/17 Unknown Pappenheimer Bodies Not Reportable 01/26/17 Unknown Sickle Cells Not Reportable 01/26/17 Unknown Target Cells Not Reportable 01/26/17 Unknown Tear Drop Cells Not Reportable 01/26/17 Unknown Ovalocytes Not Reportable 01/26/17 Unknown Helmet Cells Not Reportable 01/26/17 Unknown [place] Bodies Not Reportable 01/26/17 Unknown [place] Rings Not Reportable 01/26/17 Unknown Davin Cells Not Reportable 01/26/17 Unknown Bite Cells Not Reportable 01/26/17 Unknown Crenated Cell Not Reportable 01/26/17 Unknown Elliptocytes Not Reportable 01/26/17 Unknown Acanthocytes (Spur) Not Reportable 01/26/17 Unknown Rouleaux Not Reportable 01/26/17 Unknown Hemoglobin C Crystals Not Reportable 01/26/17 Unknown Schistocytes Not Reportable 01/26/17 Unknown Malaria parasites Not Reportable 01/26/17 Unknown Juan M Bodies Not Reportable 01/26/17 Unknown Hem Pathologist Commnt No 01/26/17 Unknown PT 14.9 Sec. (12.2-14.9) 01/26/17 17:53 INR 1.18 (0.87-1.13) H 01/26/17 17:53 APTT 24.9 Sec. (24.2-36.6) 01/26/17 17:53 Sodium 137 mmol/L (137-145) 02/04/17 05:04 Potassium 4.3 mmol/L (3.6-5.0) 02/04/17 05:04 Chloride 99.3 mmol/L (98-107) 02/04/17 05:04 Carbon Dioxide 25 mmol/L (22-30) 02/04/17 05:04 Anion Gap 17 mmol/L 02/04/17 05:04 BUN 11 mg/dL (9-20) 02/04/17 05:04 Creatinine 0.9 mg/dL (0.8-1.5) 02/04/17 05:04 Estimated GFR > 60 ml/min 02/04/17 05:04 BUN/Creatinine Ratio 12.22 % 02/04/17 05:04 Glucose 111 mg/dL (75-100) H 02/04/17 05:04 POC Glucose 109 (70-105) H 02/04/17 09:02 Calcium 8.4 mg/dL (8.4-10.2) 02/04/17 05:04 Phosphorus 3.5 mg/dL (2.5-4.5) 02/04/17 09:29 Magnesium 2.4 mg/dL (1.7-2.3) H 02/04/17 05:04 Total Bilirubin 0.7 mg/dL (0.1-1.2) 02/01/17 04:12 AST 12 units/L (5-40) 02/01/17 04:12 ALT 15 units/L (7-56) 02/01/17 04:12 Alkaline Phosphatase 52 units/L (35-129) 02/01/17 04:12 Total Protein 6.1 g/dL (6.3-8.2) L 02/01/17 04:12 Albumin 3.2 g/dL (3.9-5) L 02/01/17 04:12 Albumin/Globulin Ratio 1.1 % 02/01/17 04:12 Blood Type O POSITIVE 01/26/17 10:45 Antibody Screen Negative 01/26/17 10:45 Crossmatch See Detail 01/26/17 10:45
[2017-02-04] MEDS: ZOFRAN IV PRN ×2 (14:09→21:59)
[2017-02-04] MEDS: MORPHINE IV PRN ×2 (14:27→22:08)
--- NOTE | 2017-02-04 15:37 | Progress Note ---
Assessment and Plan 2 mor bms spoke with dr ward to go slow awaiting hyperal Subjective Date of service: 02/04/17 Principal diagnosis: bladder cancer Objective - Constitutional Vitals: Vital Signs - 12hr 02/04/17 11:00 Temperature 99.5 F Pulse Rate [ 98 H None] Respiratory 16 Rate Blood Pressure 114/76 General appearance: Present: no acute distress - Neck Neck: supple - Respiratory Respiratory effort: normal - Gastrointestinal General gastrointestinal: Present: soft - Labs CBC & Chem 7: 01/31/17 05:03 02/04/17 05:04 Labs: Abnormal lab results 02/03/17 02/04/17 02/04/17 Range/Units 17:15 05:04 09:02 Glucose 111 H (75-100) mg/dL POC Glucose 116 H 109 H (70-105) Magnesium 2.4 H (1.7-2.3) mg/dL
[2017-02-04] MEDS ORDERED: CATHFLO IV ONE ×2 (16:20→16:26)
[2017-02-04] MEDS ORDERED: WATER FOR INJ (PF) IV ONE (16:45)
[2017-02-04] MEDS ORDERED: TPN ADULT 2,016 ML IV SCH (20:00)
[2017-02-04] MEDS: PEPCID IV SCH (22:10)
[2017-02-05 06:41] LABS: Alanine Aminotransferase 73 units/L (7-56); Albumin/Globulin Ratio 0.8 %; Alkaline Phosphatase 61 units/L (35-129); Anion Gap 17 mmol/L; BUN/Creatinine Ratio 21.42; Bilirubin,Total 0.3 mg/dL (0.1-1.2); Blood Urea Nitrogen 15 mg/dL (9-20); Calcium 8.3 mg/dL (8.4-10.2); Carbon Dioxide 25 mmol/L (22-30); Chloride 98.3 mmol/L (98-107); Glucose 113 mg/dL (75-100); Magnesium 2.1 mg/dL (1.7-2.3); Phosphorous 4.3 mg/dL (2.5-4.5); Potassium 4.2 mmol/L (3.6-5.0); Sodium 136 mmol/L (137-145); Total Protein 6.6 g/dL (6.3-8.2)
--- NOTE | 2017-02-05 08:19 | Progress Note ---
Assessment and Plan Assessment and plan: --Bladder cancer Status postl cystectomy, prostatectomy postop state Continue supportive care, --Anemia, stable H&H --Hypotension, resolved --DVT prophylaxis SCDs, no pharmacologic anticoagulation in view of postoperative state Out of bed to chair Physical therapy, ambulate as tolerated Plan of care discussed with the patient as well as his nurse History Interval history: Patient feels much better Had flatus, Alert awake oriented 3 not in acute distress Hospitalist Physical - Constitutional Vitals: Temp Pulse Resp BP Pulse Ox 97.9 F 88 20 123/76 96 02/05/17 00:00 02/05/17 00:00 02/05/17 00:00 02/05/17 00:00 02/05/17 00:00 General appearance: Present: no acute distress, well-nourished - EENT Eyes: Present: PERRL, EOM intact - Neck Neck: Present: supple, normal ROM - Respiratory Respiratory effort: normal Respiratory: bilateral: diminished, negative: rales, rhonchi, wheezing - Cardiovascular Rhythm: regular Heart Sounds: Present: S1 & S2 - Extremities Extremities: no ischemia, pulses intact, pulses symmetrical Peripheral Pulses: within normal limits - Abdominal General gastrointestinal: soft, non-tender, non-distended, normal bowel sounds - Integumentary Integumentary: Present: clear, warm - Psychiatric Psychiatric: appropriate mood/affect, cooperative - Neurologic Neurologic: CNII-XII intact, moves all extremities Results - Labs CBC & Chem 7: 01/31/17 05:03 02/05/17 04:27 Labs: Laboratory Last Values WBC 10.0 K/mm3 (4.5-11.0) 01/31/17 05:03 RBC 3.67 M/mm3 (3.65-5.03) 01/31/17 05:03 Hgb 10.0 gm/dl (11.8-15.2) L 01/31/17 05:03 Hct 31.3 % (35.5-45.6) L 01/31/17 05:03 MCV 85 fl (84-94) 01/31/17 05:03 MCH 27 pg (28-32) L 01/31/17 05:03 MCHC 32 % (32-34) 01/31/17 05:03 RDW 15.0 % (13.2-15.2) 01/31/17 05:03 Plt Count 248 K/mm3 (140-440) 01/31/17 05:03 Lymph % (Auto) 16.4 % (13.4-35.0) 01/31/17 05:03 [place] % (Auto) 10.9 % (0.0-7.3) H 01/31/17 05:03 Eos % (Auto) 3.9 % (0.0-4.3) 01/31/17 05:03 Baso % (Auto) 0.5 % (0.0-1.8) 01/31/17 05:03 Lymph # 1.6 K/mm3 (1.2-5.4) 01/31/17 05:03 [place] # 1.1 K/mm3 (0.0-0.8) H 01/31/17 05:03 Eos # 0.4 K/mm3 (0.0-0.4) 01/31/17 05:03 Baso # 0.0 K/mm3 (0.0-0.1) 01/31/17 05:03 Add Manual Diff Complete 01/26/17 Unknown Total Counted 100 01/26/17 Unknown Seg Neutrophils % 68.3 % (40.0-70.0) 01/31/17 05:03 Seg Neuts % (Manual) 90.0 % (40.0-70.0) H 01/26/17 Unknown Band Neutrophils % 0 % 01/26/17 Unknown Lymphocytes % (Manual) 5.0 % (13.4-35.0) L 01/26/17 Unknown Reactive Lymphs % (Man) 0 % 01/26/17 Unknown Monocytes % (Manual) 5.0 % (0.0-7.3) 01/26/17 Unknown Eosinophils % (Manual) 0 % (0.0-4.3) 01/26/17 Unknown Basophils % (Manual) 0 % (0.0-1.8) 01/26/17 Unknown Metamyelocytes % 0 % 01/26/17 Unknown Myelocytes % 0 % 01/26/17 Unknown Promyelocytes % 0 % 01/26/17 Unknown Blast Cells % 0 % 01/26/17 Unknown Nucleated RBC % Not Reportable 01/26/17 Unknown Seg Neutrophils # 6.8 K/mm3 (1.8-7.7) 01/31/17 05:03 Seg Neutrophils # Man 14.4 K/mm3 (1.8-7.7) H 01/26/17 Unknown Band Neutrophils # 0.0 K/mm3 01/26/17 Unknown Lymphocytes # (Manual) 0.8 K/mm3 (1.2-5.4) L 01/26/17 Unknown Abs React Lymphs (Man) 0.0 K/mm3 01/26/17 Unknown Monocytes # (Manual) 0.8 K/mm3 (0.0-0.8) 01/26/17 Unknown Eosinophils # (Manual) 0.0 K/mm3 (0.0-0.4) 01/26/17 Unknown Basophils # (Manual) 0.0 K/mm3 (0.0-0.1) 01/26/17 Unknown Metamyelocytes # 0.0 K/mm3 01/26/17 Unknown Myelocytes # 0.0 K/mm3 01/26/17 Unknown Promyelocytes # 0.0 K/mm3 01/26/17 Unknown Blast Cells # 0.0 K/mm3 01/26/17 Unknown WBC Morphology Not Reportable 01/26/17 Unknown Hypersegmented Neuts Not Reportable 01/26/17 Unknown Hyposegmented Neuts Not Reportable 01/26/17 Unknown Hypogranular Neuts Not Reportable 01/26/17 Unknown Smudge Cells Not Reportable 01/26/17 Unknown Toxic Granulation Not Reportable 01/26/17 Unknown Toxic Vacuolation Not Reportable 01/26/17 Unknown Dohle Bodies Not Reportable 01/26/17 Unknown Pelger-Huet Anomaly Not Reportable 01/26/17 Unknown Sara Rods Not Reportable 01/26/17 Unknown Platelet Estimate Consistent w auto 01/26/17 Unknown Clumped Platelets Not Reportable 01/26/17 Unknown Plt Clumps, EDTA Not Reportable 01/26/17 Unknown Large Platelets Not Reportable 01/26/17 Unknown Giant Platelets Not Reportable 01/26/17 Unknown Platelet Satelliting Not Reportable 01/26/17 Unknown Plt Morphology Comment Not Reportable 01/26/17 Unknown RBC Morphology Not Reportable 01/26/17 Unknown Dimorphic RBCs Not Reportable 01/26/17 Unknown Polychromasia Not Reportable 01/26/17 Unknown Hypochromasia Not Reportable 01/26/17 Unknown Poikilocytosis Not Reportable 01/26/17 Unknown Anisocytosis 1+ 01/26/17 Unknown Microcytosis Not Reportable 01/26/17 Unknown Macrocytosis Not Reportable 01/26/17 Unknown Spherocytes Not Reportable 01/26/17 Unknown Pappenheimer Bodies Not Reportable 01/26/17 Unknown Sickle Cells Not Reportable 01/26/17 Unknown Target Cells Not Reportable 01/26/17 Unknown Tear Drop Cells Not Reportable 01/26/17 Unknown Ovalocytes Not Reportable 01/26/17 Unknown Helmet Cells Not Reportable 01/26/17 Unknown [place] Bodies Not Reportable 01/26/17 Unknown [place] Rings Not Reportable 01/26/17 Unknown Davin Cells Not Reportable 01/26/17 Unknown Bite Cells Not Reportable 01/26/17 Unknown Crenated Cell Not Reportable 01/26/17 Unknown Elliptocytes Not Reportable 01/26/17 Unknown Acanthocytes (Spur) Not Reportable 01/26/17 Unknown Rouleaux Not Reportable 01/26/17 Unknown Hemoglobin C Crystals Not Reportable 01/26/17 Unknown Schistocytes Not Reportable 01/26/17 Unknown Malaria parasites Not Reportable 01/26/17 Unknown Juan M Bodies Not Reportable 01/26/17 Unknown Hem Pathologist Commnt No 01/26/17 Unknown PT 14.9 Sec. (12.2-14.9) 01/26/17 17:53 INR 1.18 (0.87-1.13) H 01/26/17 17:53 APTT 24.9 Sec. (24.2-36.6) 01/26/17 17:53 Sodium 136 mmol/L (137-145) L 02/05/17 04:27 Potassium 4.2 mmol/L (3.6-5.0) 02/05/17 04:27 Chloride 98.3 mmol/L (98-107) 02/05/17 04:27 Carbon Dioxide 25 mmol/L (22-30) 02/05/17 04:27 Anion Gap 17 mmol/L 02/05/17 04:27 BUN 15 mg/dL (9-20) 02/05/17 04:27 Creatinine 0.7 mg/dL (0.8-1.5) L 02/05/17 04:27 Estimated GFR > 60 ml/min 02/05/17 04:27 BUN/Creatinine Ratio 21.42 % 02/05/17 04:27 Glucose 113 mg/dL (75-100) H 02/05/17 04:27 POC Glucose 137 (70-105) H 02/05/17 07:47 Calcium 8.3 mg/dL (8.4-10.2) L 02/05/17 04:27 Phosphorus 4.3 mg/dL (2.5-4.5) D 02/05/17 04:27 Magnesium 2.1 mg/dL (1.7-2.3) 02/05/17 04:27 Total Bilirubin 0.3 mg/dL (0.1-1.2) 02/05/17 04:27 AST 30 units/L (5-40) 02/05/17 04:27 ALT 73 units/L (7-56) H 02/05/17 04:27 Alkaline Phosphatase 61 units/L (35-129) 02/05/17 04:27 Total Protein 6.6 g/dL (6.3-8.2) 02/05/17 04:27 Albumin 3.0 g/dL (3.9-5) L 02/05/17 04:27 Albumin/Globulin Ratio 0.8 % 02/05/17 04:27 Blood Type O POSITIVE 01/26/17 10:45 Antibody Screen Negative 01/26/17 10:45 Crossmatch See Detail 01/26/17 10:45
--- NOTE | 2017-02-05 10:28 | XRay Report ---
Flatplate of abdomen: Compared to 02/04/17. History: Small bowel obstruction. Findings: No significant bowel distention or wall thickening. No radiopaque calculus or abnormal calcification. Impression: No evidence of bowel distention.
[2017-02-05] MEDS: ZOFRAN IV PRN ×2 (10:43→20:09)
[2017-02-05] MEDS: HEPARIN SUB-Q SCH (10:43)
[2017-02-05] MEDS: PEPCID IV SCH (10:43)
[2017-02-05] MEDS: MORPHINE IV PRN ×2 (10:43→20:09)
[2017-02-05] MEDS ORDERED: FLUARIX QUAD 2016-2017(36 MOS+) IM ONE (12:00)
--- NOTE | 2017-02-05 14:03 | Progress Note ---
Subjective Patient Reports: Positive: feels better, pain is less, flatus, bowel movement Narrative: as obove doing fine KUB much improved Objective Vital Signs - 12hr 02/05/17 08:51 Temperature 98.8 F Pulse Rate [ 92 H Left Radial] Respiratory 18 Rate Blood Pressure 102/67 [Left Arm] O2 Sat by Pulse 98 Oximetry - Labs 01/31/17 05:03 02/05/17 04:27 Diabetes panel 02/05/17 Range/Units 04:27 Sodium 136 L (137-145) mmol/L Potassium 4.2 (3.6-5.0) mmol/L Chloride 98.3 (98-107) mmol/L Carbon Dioxide 25 (22-30) mmol/L BUN 15 (9-20) mg/dL Creatinine 0.7 L (0.8-1.5) mg/dL Glucose 113 H (75-100) mg/dL Calcium 8.3 L (8.4-10.2) mg/dL AST 30 (5-40) units/L ALT 73 H (7-56) units/L Alkaline Phosphatase 61 (35-129) units/L Total Protein 6.6 (6.3-8.2) g/dL Albumin 3.0 L (3.9-5) g/dL Calcium panel 02/05/17 Range/Units 04:27 Calcium 8.3 L (8.4-10.2) mg/dL Phosphorus 4.3 D (2.5-4.5) mg/dL Albumin 3.0 L (3.9-5) g/dL Pituitary panel 02/05/17 Range/Units 04:27 Sodium 136 L (137-145) mmol/L Potassium 4.2 (3.6-5.0) mmol/L Chloride 98.3 (98-107) mmol/L Carbon Dioxide 25 (22-30) mmol/L BUN 15 (9-20) mg/dL Creatinine 0.7 L (0.8-1.5) mg/dL Glucose 113 H (75-100) mg/dL Calcium 8.3 L (8.4-10.2) mg/dL Adrenal panel 02/05/17 Range/Units 04:27 Sodium 136 L (137-145) mmol/L Potassium 4.2 (3.6-5.0) mmol/L Chloride 98.3 (98-107) mmol/L Carbon Dioxide 25 (22-30) mmol/L BUN 15 (9-20) mg/dL Creatinine 0.7 L (0.8-1.5) mg/dL Glucose 113 H (75-100) mg/dL Calcium 8.3 L (8.4-10.2) mg/dL Total Bilirubin 0.3 (0.1-1.2) mg/dL AST 30 (5-40) units/L ALT 73 H (7-56) units/L Alkaline Phosphatase 61 (35-129) units/L Total Protein 6.6 (6.3-8.2) g/dL Albumin 3.0 L (3.9-5) g/dL
--- NOTE | 2017-02-05 17:31 | Progress Note ---
Assessment and Plan s/y cystectomy conduit ileus - diet on FLD, tolerating - in activity - passing gas Subjective Date of service: 02/05/17 Principal diagnosis: bladder cancer Interval history: pt stable, gas eathing Objective - Constitutional Vitals: Vital Signs - 12hr 02/05/17 08:51 Temperature 98.8 F Pulse Rate [ 92 H Left Radial] Respiratory 18 Rate Blood Pressure 102/67 [Left Arm] O2 Sat by Pulse 98 Oximetry General appearance: Present: no acute distress - Respiratory Respiratory effort: normal - Gastrointestinal General gastrointestinal: Present: other (bag draining urine, in tube; abd mild dist) - Labs CBC & Chem 7: 01/31/17 05:03 02/05/17 04:27 Labs: Abnormal lab results 02/04/17 02/04/17 02/05/17 Range/Units 18:16 21:27 00:50 Sodium (137-145) mmol/L Creatinine (0.8-1.5) mg/dL Glucose (75-100) mg/dL POC Glucose 134 H 118 H 143 H (70-105) Calcium (8.4-10.2) mg/dL ALT (7-56) units/L Albumin (3.9-5) g/dL 02/05/17 02/05/17 02/05/17 Range/Units 04:27 06:59 07:47 Sodium 136 L (137-145) mmol/L Creatinine 0.7 L (0.8-1.5) mg/dL Glucose 113 H (75-100) mg/dL POC Glucose 137 H 137 H (70-105) Calcium 8.3 L (8.4-10.2) mg/dL ALT 73 H (7-56) units/L Albumin 3.0 L (3.9-5) g/dL
[2017-02-05] MEDS ORDERED: TPN ADULT 2,016 ML IV SCH (20:00)
[2017-02-06] MEDS: HEPARIN SUB-Q SCH ×3 (00:05→21:10)
[2017-02-06] MEDS: PEPCID IV SCH ×3 (00:06→21:10)
[2017-02-06] MEDS: MORPHINE IV PRN ×2 (00:11→19:44)
[2017-02-06 06:01] LABS: Anion Gap 16 mmol/L; BUN/Creatinine Ratio 16.66; Blood Urea Nitrogen 15 mg/dL (9-20); Calcium 8.4 mg/dL (8.4-10.2); Carbon Dioxide 26 mmol/L (22-30); Chloride 100.4 mmol/L (98-107); Glucose 118 mg/dL (75-100); Magnesium 1.8 mg/dL (1.7-2.3); Sodium 138 mmol/L (137-145)
--- NOTE | 2017-02-06 08:06 | Progress Note ---
Assessment and Plan s/y cystectomy conduit ileus - diet on FLD, tolerating - in activity - passing gas - no change recs - PT Subjective Date of service: 02/06/17 Principal diagnosis: bladder cancer Interval history: no compl overnight Objective - Constitutional Vitals: Vital Signs - 12hr 02/05/17 02/05/17 02/05/17 20:09 20:39 21:00 Temperature Pulse Rate [ Left Radial] Respiratory 18 20 Rate Respiratory 20 Rate [Back] Blood Pressure [Left Arm] O2 Sat by Pulse Oximetry 02/06/17 02/06/17 02/06/17 00:00 00:11 00:41 Temperature 98.3 F Pulse Rate [ 88 Left Radial] Respiratory 18 20 20 Rate Respiratory Rate [Back] Blood Pressure 127/75 [Left Arm] O2 Sat by Pulse 96 Oximetry 02/06/17 07:00 Temperature 98.6 F Pulse Rate [ 79 Left Radial] Respiratory 18 Rate Respiratory Rate [Back] Blood Pressure 95/54 [Left Arm] O2 Sat by Pulse 97 Oximetry - Gastrointestinal Rectal Exam: other (cath clear) - Labs CBC & Chem 7: 01/31/17 05:03 02/06/17 04:47 Labs: Abnormal lab results 02/05/17 02/05/17 02/05/17 Range/Units 00:50 06:59 07:47 Glucose (75-100) mg/dL POC Glucose 143 H 137 H 137 H (70-105) 02/05/17 02/05/17 02/06/17 Range/Units 12:23 17:40 00:18 Glucose (75-100) mg/dL POC Glucose 131 H 136 H 129 H (70-105) 02/06/17 02/06/17 Range/Units 04:47 05:46 Glucose 118 H (75-100) mg/dL POC Glucose 133 H (70-105)
--- NOTE | 2017-02-06 09:55 | Progress Note ---
Subjective Patient Reports: Positive: feels better, pain is less, bowel movement Narrative: talked to Pt doing fine , good BMs , to see me in one week in office call PRN , indicated the above to Dr Johnna valdes Objective Vital Signs - 12hr 02/06/17 02/06/17 02/06/17 00:00 00:11 00:41 Temperature 98.3 F Pulse Rate [ 88 Left Radial] Respiratory 18 20 20 Rate Blood Pressure 127/75 [Left Arm] O2 Sat by Pulse 96 Oximetry 02/06/17 07:00 Temperature 98.6 F Pulse Rate [ 79 Left Radial] Respiratory 18 Rate Blood Pressure 95/54 [Left Arm] O2 Sat by Pulse 97 Oximetry - Labs 01/31/17 05:03 02/06/17 04:47 Diabetes panel 02/06/17 Range/Units 04:47 Sodium 138 (137-145) mmol/L Potassium 4.0 (3.6-5.0) mmol/L Chloride 100.4 (98-107) mmol/L Carbon Dioxide 26 (22-30) mmol/L BUN 15 (9-20) mg/dL Creatinine 0.9 (0.8-1.5) mg/dL Glucose 118 H (75-100) mg/dL Calcium 8.4 (8.4-10.2) mg/dL Calcium panel 02/06/17 Range/Units 04:47 Calcium 8.4 (8.4-10.2) mg/dL Phosphorus 4.0 (2.5-4.5) mg/dL Pituitary panel 02/06/17 Range/Units 04:47 Sodium 138 (137-145) mmol/L Potassium 4.0 (3.6-5.0) mmol/L Chloride 100.4 (98-107) mmol/L Carbon Dioxide 26 (22-30) mmol/L BUN 15 (9-20) mg/dL Creatinine 0.9 (0.8-1.5) mg/dL Glucose 118 H (75-100) mg/dL Calcium 8.4 (8.4-10.2) mg/dL Adrenal panel 02/06/17 Range/Units 04:47 Sodium 138 (137-145) mmol/L Potassium 4.0 (3.6-5.0) mmol/L Chloride 100.4 (98-107) mmol/L Carbon Dioxide 26 (22-30) mmol/L BUN 15 (9-20) mg/dL Creatinine 0.9 (0.8-1.5) mg/dL Glucose 118 H (75-100) mg/dL Calcium 8.4 (8.4-10.2) mg/dL
--- NOTE | 2017-02-06 10:24 | Progress Note ---
Assessment and Plan Assessment and plan: --Bladder cancer Status post cystectomy, prostatectomy stable --Ileus, resolved Advance diet as tolerated, wean and discontinue TPN --Anemia, stable H&H --Hypotension, resolved --DVT prophylaxis SCDs, no pharmacologic anticoagulation in view of postoperative state Out of bed to chair Physical therapy, ambulate as tolerated Possible discharge tomorrow if stable History Interval history: Patient seen and evaluated medical records reviewed No new events reported by the nursing staff, patient has no complaints Tolerating soft diet Alert awake oriented 3 not in acute distress Hospitalist Physical - Constitutional Vitals: Temp Pulse Resp BP Pulse Ox 98.6 F 79 18 95/54 97 02/06/17 07:00 02/06/17 07:00 02/06/17 07:00 02/06/17 07:00 02/06/17 07:00 General appearance: Present: no acute distress, well-nourished - EENT Eyes: Present: PERRL, EOM intact - Neck Neck: Present: supple, normal ROM - Respiratory Respiratory effort: normal Respiratory: negative: rales, rhonchi, wheezing - Cardiovascular Rhythm: regular Heart Sounds: Present: S1 & S2 - Extremities Extremities: no ischemia, pulses intact, pulses symmetrical - Abdominal General gastrointestinal: soft, non-tender, non-distended, normal bowel sounds - Integumentary Integumentary: Present: clear, warm - Psychiatric Psychiatric: appropriate mood/affect, cooperative - Neurologic Neurologic: CNII-XII intact, moves all extremities Results - Labs CBC & Chem 7: 01/31/17 05:03 02/06/17 04:47 Labs: Laboratory Last Values WBC 10.0 K/mm3 (4.5-11.0) 01/31/17 05:03 RBC 3.67 M/mm3 (3.65-5.03) 01/31/17 05:03 Hgb 10.0 gm/dl (11.8-15.2) L 01/31/17 05:03 Hct 31.3 % (35.5-45.6) L 01/31/17 05:03 MCV 85 fl (84-94) 01/31/17 05:03 MCH 27 pg (28-32) L 01/31/17 05:03 MCHC 32 % (32-34) 01/31/17 05:03 RDW 15.0 % (13.2-15.2) 01/31/17 05:03 Plt Count 248 K/mm3 (140-440) 01/31/17 05:03 Lymph % (Auto) 16.4 % (13.4-35.0) 01/31/17 05:03 [place] % (Auto) 10.9 % (0.0-7.3) H 01/31/17 05:03 Eos % (Auto) 3.9 % (0.0-4.3) 01/31/17 05:03 Baso % (Auto) 0.5 % (0.0-1.8) 01/31/17 05:03 Lymph # 1.6 K/mm3 (1.2-5.4) 01/31/17 05:03 [place] # 1.1 K/mm3 (0.0-0.8) H 01/31/17 05:03 Eos # 0.4 K/mm3 (0.0-0.4) 01/31/17 05:03 Baso # 0.0 K/mm3 (0.0-0.1) 01/31/17 05:03 Add Manual Diff Complete 01/26/17 Unknown Total Counted 100 01/26/17 Unknown Seg Neutrophils % 68.3 % (40.0-70.0) 01/31/17 05:03 Seg Neuts % (Manual) 90.0 % (40.0-70.0) H 01/26/17 Unknown Band Neutrophils % 0 % 01/26/17 Unknown Lymphocytes % (Manual) 5.0 % (13.4-35.0) L 01/26/17 Unknown Reactive Lymphs % (Man) 0 % 01/26/17 Unknown Monocytes % (Manual) 5.0 % (0.0-7.3) 01/26/17 Unknown Eosinophils % (Manual) 0 % (0.0-4.3) 01/26/17 Unknown Basophils % (Manual) 0 % (0.0-1.8) 01/26/17 Unknown Metamyelocytes % 0 % 01/26/17 Unknown Myelocytes % 0 % 01/26/17 Unknown Promyelocytes % 0 % 01/26/17 Unknown Blast Cells % 0 % 01/26/17 Unknown Nucleated RBC % Not Reportable 01/26/17 Unknown Seg Neutrophils # 6.8 K/mm3 (1.8-7.7) 01/31/17 05:03 Seg Neutrophils # Man 14.4 K/mm3 (1.8-7.7) H 01/26/17 Unknown Band Neutrophils # 0.0 K/mm3 01/26/17 Unknown Lymphocytes # (Manual) 0.8 K/mm3 (1.2-5.4) L 01/26/17 Unknown Abs React Lymphs (Man) 0.0 K/mm3 01/26/17 Unknown Monocytes # (Manual) 0.8 K/mm3 (0.0-0.8) 01/26/17 Unknown Eosinophils # (Manual) 0.0 K/mm3 (0.0-0.4) 01/26/17 Unknown Basophils # (Manual) 0.0 K/mm3 (0.0-0.1) 01/26/17 Unknown Metamyelocytes # 0.0 K/mm3 01/26/17 Unknown Myelocytes # 0.0 K/mm3 01/26/17 Unknown Promyelocytes # 0.0 K/mm3 01/26/17 Unknown Blast Cells # 0.0 K/mm3 01/26/17 Unknown WBC Morphology Not Reportable 01/26/17 Unknown Hypersegmented Neuts Not Reportable 01/26/17 Unknown Hyposegmented Neuts Not Reportable 01/26/17 Unknown Hypogranular Neuts Not Reportable 01/26/17 Unknown Smudge Cells Not Reportable 01/26/17 Unknown Toxic Granulation Not Reportable 01/26/17 Unknown Toxic Vacuolation Not Reportable 01/26/17 Unknown Dohle Bodies Not Reportable 01/26/17 Unknown Pelger-Huet Anomaly Not Reportable 01/26/17 Unknown Sara Rods Not Reportable 01/26/17 Unknown Platelet Estimate Consistent w auto 01/26/17 Unknown Clumped Platelets Not Reportable 01/26/17 Unknown Plt Clumps, EDTA Not Reportable 01/26/17 Unknown Large Platelets Not Reportable 01/26/17 Unknown Giant Platelets Not Reportable 01/26/17 Unknown Platelet Satelliting Not Reportable 01/26/17 Unknown Plt Morphology Comment Not Reportable 01/26/17 Unknown RBC Morphology Not Reportable 01/26/17 Unknown Dimorphic RBCs Not Reportable 01/26/17 Unknown Polychromasia Not Reportable 01/26/17 Unknown Hypochromasia Not Reportable 01/26/17 Unknown Poikilocytosis Not Reportable 01/26/17 Unknown Anisocytosis 1+ 01/26/17 Unknown Microcytosis Not Reportable 01/26/17 Unknown Macrocytosis Not Reportable 01/26/17 Unknown Spherocytes Not Reportable 01/26/17 Unknown Pappenheimer Bodies Not Reportable 01/26/17 Unknown Sickle Cells Not Reportable 01/26/17 Unknown Target Cells Not Reportable 01/26/17 Unknown Tear Drop Cells Not Reportable 01/26/17 Unknown Ovalocytes Not Reportable 01/26/17 Unknown Helmet Cells Not Reportable 01/26/17 Unknown [place] Bodies Not Reportable 01/26/17 Unknown [place] Rings Not Reportable 01/26/17 Unknown Davin Cells Not Reportable 01/26/17 Unknown Bite Cells Not Reportable 01/26/17 Unknown Crenated Cell Not Reportable 01/26/17 Unknown Elliptocytes Not Reportable 01/26/17 Unknown Acanthocytes (Spur) Not Reportable 01/26/17 Unknown Rouleaux Not Reportable 01/26/17 Unknown Hemoglobin C Crystals Not Reportable 01/26/17 Unknown Schistocytes Not Reportable 01/26/17 Unknown Malaria parasites Not Reportable 01/26/17 Unknown Juan M Bodies Not Reportable 01/26/17 Unknown Hem Pathologist Commnt No 01/26/17 Unknown PT 14.9 Sec. (12.2-14.9) 01/26/17 17:53 INR 1.18 (0.87-1.13) H 01/26/17 17:53 APTT 24.9 Sec. (24.2-36.6) 01/26/17 17:53 Sodium 138 mmol/L (137-145) 02/06/17 04:47 Potassium 4.0 mmol/L (3.6-5.0) 02/06/17 04:47 Chloride 100.4 mmol/L (98-107) 02/06/17 04:47 Carbon Dioxide 26 mmol/L (22-30) 02/06/17 04:47 Anion Gap 16 mmol/L 02/06/17 04:47 BUN 15 mg/dL (9-20) 02/06/17 04:47 Creatinine 0.9 mg/dL (0.8-1.5) 02/06/17 04:47 Estimated GFR > 60 ml/min 02/06/17 04:47 BUN/Creatinine Ratio 16.66 % 02/06/17 04:47 Glucose 118 mg/dL (75-100) H 02/06/17 04:47 POC Glucose 133 (70-105) H 02/06/17 05:46 Calcium 8.4 mg/dL (8.4-10.2) 02/06/17 04:47 Phosphorus 4.0 mg/dL (2.5-4.5) 02/06/17 04:47 Magnesium 1.8 mg/dL (1.7-2.3) 02/06/17 04:47 Total Bilirubin 0.3 mg/dL (0.1-1.2) 02/05/17 04:27 AST 30 units/L (5-40) 02/05/17 04:27 ALT 73 units/L (7-56) H 02/05/17 04:27 Alkaline Phosphatase 61 units/L (35-129) 02/05/17 04:27 Total Protein 6.6 g/dL (6.3-8.2) 02/05/17 04:27 Albumin 3.0 g/dL (3.9-5) L 02/05/17 04:27 Albumin/Globulin Ratio 0.8 % 02/05/17 04:27 Blood Type O POSITIVE 01/26/17 10:45 Antibody Screen Negative 01/26/17 10:45 Crossmatch See Detail 01/26/17 10:45
[2017-02-06] MEDS ORDERED: TPN ADULT 2,016 ML IV SCH (20:00)
[2017-02-07 06:41] LABS: Anion Gap 15 mmol/L; BUN/Creatinine Ratio 21.42; Blood Urea Nitrogen 15 mg/dL (9-20); Calcium 8.4 mg/dL (8.4-10.2); Carbon Dioxide 25 mmol/L (22-30); Chloride 100.7 mmol/L (98-107); Glucose 138 mg/dL (75-100); Magnesium 1.7 mg/dL (1.7-2.3); Phosphorous 4.3 mg/dL (2.5-4.5); Potassium 3.8 mmol/L (3.6-5.0); Sodium 137 mmol/L (137-145)
--- NOTE | 2017-02-07 09:01 | Progress Note ---
Assessment and Plan incisdion clean and intact stome pink stents were in bag barely in plan ostomy care john po d/c when ok with surgery Subjective Date of service: 02/07/17 Principal diagnosis: bladder cancer Objective - Constitutional Vitals: Vital Signs - 12hr 02/07/17 02/07/17 00:00 07:20 Temperature 98.3 F 98.4 F Pulse Rate [ 90 From Monitor] Pulse Rate [ 88 Left Radial] Respiratory 18 18 Rate Blood Pressure 107/66 97/61 [Left Arm] O2 Sat by Pulse 97 96 Oximetry General appearance: Present: no acute distress - Neck Neck: supple - Respiratory Respiratory effort: normal Extremities: no ischemia - Gastrointestinal General gastrointestinal: Present: soft, non-tender - Labs CBC & Chem 7: 01/31/17 05:03 02/07/17 05:28 Labs: Abnormal lab results 02/06/17 02/06/17 02/07/17 Range/Units 11:13 17:34 00:01 Creatinine (0.8-1.5) mg/dL Glucose (75-100) mg/dL POC Glucose 116 H 147 H 135 H (70-105) 02/07/17 02/07/17 Range/Units 05:28 06:39 Creatinine 0.7 L (0.8-1.5) mg/dL Glucose 138 H (75-100) mg/dL POC Glucose 153 H (70-105)
--- NOTE | 2017-02-07 09:57 | Query-Kidney Disease ---
Ryan Billingsley___Lizz Date:____02/07/17 Sodium Chlorite Operator/CDS: Laurent Kelley Phone#:__[phone] Exercise your independent professional judgment when responding to query. Questions asked do not imply a particular answer is desired or expected. We greatly appreciate your clarification on this issue. Clinical Documentation States: 51 year old male was admitted on 01/26/17 The progress note (02/06/17) states " Assessment and plan: Bladder cancer Status post cystectomy, prostatectomy stable Ileus, resolved Advance diet as tolerated, wean and discontinue TPN. Anemia, stable H&H, Hypotension, resolved " Clinical Findings Show: 01/26/17 02/07/17 Creatinine: 1.0 0.7 Please Clarify if you mean: Acute Renal Failure with or due to: [ ] Tubular Necrosis [ ] Cortical Necrosis [ ] Shock Kidney [ ] Vasomotor Nephropathy [ ] Lower Tubular Nephrosis [ ] Renal Tubular Stasis [ ] Tubular Nephrosis [ ] Medullary Necrosis [ ] Acute Renal Failure (unspecified) [ ] Other: [ ] Comment/Explanation: Chronic Kidney Disease (Please minto applicable stage) 3 Stages Description GFR [ ] CKD Stage 1 90 mL/min or more [ ] CKD Stage 2 Mild decrease in Kidney function 60 to 89 mL/min [ ] CKD Stage 3 Moderate decrease in kidney function 30-59 [ ] CKD Stage 4 Severe decrease in kidney function 15-29 [ ] CKD Stage 5 Kidney failure; requiring dialysis or transplantation <15 [ ] ESRD Patient requiring dialysis for > 3 months or kidney transplant irrespective of level of GFR; Applicable for 1 year after kidney transplant [ x ] Other: Patient was admitted with bladder cancer , very minimal elevated creatinine probably secondary to obstructive uropathy [ ] Comment/Explanation: [ ] Not applicable Present on Admission: [x ] Yes (Y) [ ] Clinically undeterminable (W) [ ] No (N) Please also document response in your Progress Notes and/or Discharge Summary and indicate if the condition was present on admission MTDD
[2017-02-07] MEDS: HEPARIN SUB-Q SCH ×2 (10:01→22:35)
[2017-02-07] MEDS: PEPCID IV SCH ×2 (10:02→22:30)
--- NOTE | 2017-02-07 15:37 | Progress Note ---
Assessment and Plan Assessment and plan: --Bladder cancer Status post cystectomy, prostatectomy stable Continue supportive care --Postop Ileus, resolved Advance diet as tolerated, wean and discontinue TPN --Anemia, stable H&H --Hypotension, resolved --DVT prophylaxis SCDs, no pharmacologic anticoagulation in view of postoperative state disCharge planning per case management, possible home health home wound care Out of bed to chair , Physical therapy, ambulate as tolerated Titrated DC TPN Advance diet as tolerated Medically stable can be discharged home Possible discharge tomorrow, plan of care discussed with the patient as well as the nurse History Interval history: Patient seen and evaluated in his room medical records reviewed No new events reported by the nursing staff No new complaints Alert awake oriented 3 not in acute distress vital signs reviewed Hospitalist Physical - Constitutional Vitals: Temp Pulse Resp BP Pulse Ox 98.4 F 90 18 97/61 96 02/07/17 07:20 02/07/17 07:20 02/07/17 07:20 02/07/17 07:20 02/07/17 07:20 General appearance: Present: no acute distress, well-nourished - EENT Eyes: Present: PERRL, EOM intact - Neck Neck: Present: supple, normal ROM - Respiratory Respiratory effort: normal Respiratory: negative: rales, rhonchi, wheezing - Cardiovascular Rhythm: regular Heart Sounds: Present: S1 & S2 - Extremities Extremities: no ischemia, pulses intact, pulses symmetrical Peripheral Pulses: within normal limits - Abdominal General gastrointestinal: soft, non-tender, non-distended, normal bowel sounds - Integumentary Integumentary: Present: clear, warm - Psychiatric Psychiatric: appropriate mood/affect, cooperative - Neurologic Neurologic: CNII-XII intact, moves all extremities Results - Labs CBC & Chem 7: 01/31/17 05:03 02/07/17 05:28 Labs: Laboratory Last Values WBC 10.0 K/mm3 (4.5-11.0) 01/31/17 05:03 RBC 3.67 M/mm3 (3.65-5.03) 01/31/17 05:03 Hgb 10.0 gm/dl (11.8-15.2) L 01/31/17 05:03 Hct 31.3 % (35.5-45.6) L 01/31/17 05:03 MCV 85 fl (84-94) 01/31/17 05:03 MCH 27 pg (28-32) L 01/31/17 05:03 MCHC 32 % (32-34) 01/31/17 05:03 RDW 15.0 % (13.2-15.2) 01/31/17 05:03 Plt Count 248 K/mm3 (140-440) 01/31/17 05:03 Lymph % (Auto) 16.4 % (13.4-35.0) 01/31/17 05:03 [place] % (Auto) 10.9 % (0.0-7.3) H 01/31/17 05:03 Eos % (Auto) 3.9 % (0.0-4.3) 01/31/17 05:03 Baso % (Auto) 0.5 % (0.0-1.8) 01/31/17 05:03 Lymph # 1.6 K/mm3 (1.2-5.4) 01/31/17 05:03 [place] # 1.1 K/mm3 (0.0-0.8) H 01/31/17 05:03 Eos # 0.4 K/mm3 (0.0-0.4) 01/31/17 05:03 Baso # 0.0 K/mm3 (0.0-0.1) 01/31/17 05:03 Add Manual Diff Complete 01/26/17 Unknown Total Counted 100 01/26/17 Unknown Seg Neutrophils % 68.3 % (40.0-70.0) 01/31/17 05:03 Seg Neuts % (Manual) 90.0 % (40.0-70.0) H 01/26/17 Unknown Band Neutrophils % 0 % 01/26/17 Unknown Lymphocytes % (Manual) 5.0 % (13.4-35.0) L 01/26/17 Unknown Reactive Lymphs % (Man) 0 % 01/26/17 Unknown Monocytes % (Manual) 5.0 % (0.0-7.3) 01/26/17 Unknown Eosinophils % (Manual) 0 % (0.0-4.3) 01/26/17 Unknown Basophils % (Manual) 0 % (0.0-1.8) 01/26/17 Unknown Metamyelocytes % 0 % 01/26/17 Unknown Myelocytes % 0 % 01/26/17 Unknown Promyelocytes % 0 % 01/26/17 Unknown Blast Cells % 0 % 01/26/17 Unknown Nucleated RBC % Not Reportable 01/26/17 Unknown Seg Neutrophils # 6.8 K/mm3 (1.8-7.7) 01/31/17 05:03 Seg Neutrophils # Man 14.4 K/mm3 (1.8-7.7) H 01/26/17 Unknown Band Neutrophils # 0.0 K/mm3 01/26/17 Unknown Lymphocytes # (Manual) 0.8 K/mm3 (1.2-5.4) L 01/26/17 Unknown Abs React Lymphs (Man) 0.0 K/mm3 01/26/17 Unknown Monocytes # (Manual) 0.8 K/mm3 (0.0-0.8) 01/26/17 Unknown Eosinophils # (Manual) 0.0 K/mm3 (0.0-0.4) 01/26/17 Unknown Basophils # (Manual) 0.0 K/mm3 (0.0-0.1) 01/26/17 Unknown Metamyelocytes # 0.0 K/mm3 01/26/17 Unknown Myelocytes # 0.0 K/mm3 01/26/17 Unknown Promyelocytes # 0.0 K/mm3 01/26/17 Unknown Blast Cells # 0.0 K/mm3 01/26/17 Unknown WBC Morphology Not Reportable 01/26/17 Unknown Hypersegmented Neuts Not Reportable 01/26/17 Unknown Hyposegmented Neuts Not Reportable 01/26/17 Unknown Hypogranular Neuts Not Reportable 01/26/17 Unknown Smudge Cells Not Reportable 01/26/17 Unknown Toxic Granulation Not Reportable 01/26/17 Unknown Toxic Vacuolation Not Reportable 01/26/17 Unknown Dohle Bodies Not Reportable 01/26/17 Unknown Pelger-Huet Anomaly Not Reportable 01/26/17 Unknown Sara Rods Not Reportable 01/26/17 Unknown Platelet Estimate Consistent w auto 01/26/17 Unknown Clumped Platelets Not Reportable 01/26/17 Unknown Plt Clumps, EDTA Not Reportable 01/26/17 Unknown Large Platelets Not Reportable 01/26/17 Unknown Giant Platelets Not Reportable 01/26/17 Unknown Platelet Satelliting Not Reportable 01/26/17 Unknown Plt Morphology Comment Not Reportable 01/26/17 Unknown RBC Morphology Not Reportable 01/26/17 Unknown Dimorphic RBCs Not Reportable 01/26/17 Unknown Polychromasia Not Reportable 01/26/17 Unknown Hypochromasia Not Reportable 01/26/17 Unknown Poikilocytosis Not Reportable 01/26/17 Unknown Anisocytosis 1+ 01/26/17 Unknown Microcytosis Not Reportable 01/26/17 Unknown Macrocytosis Not Reportable 01/26/17 Unknown Spherocytes Not Reportable 01/26/17 Unknown Pappenheimer Bodies Not Reportable 01/26/17 Unknown Sickle Cells Not Reportable 01/26/17 Unknown Target Cells Not Reportable 01/26/17 Unknown Tear Drop Cells Not Reportable 01/26/17 Unknown Ovalocytes Not Reportable 01/26/17 Unknown Helmet Cells Not Reportable 01/26/17 Unknown [place] Bodies Not Reportable 01/26/17 Unknown [place] Rings Not Reportable 01/26/17 Unknown Davin Cells Not Reportable 01/26/17 Unknown Bite Cells Not Reportable 01/26/17 Unknown Crenated Cell Not Reportable 01/26/17 Unknown Elliptocytes Not Reportable 01/26/17 Unknown Acanthocytes (Spur) Not Reportable 01/26/17 Unknown Rouleaux Not Reportable 01/26/17 Unknown Hemoglobin C Crystals Not Reportable 01/26/17 Unknown Schistocytes Not Reportable 01/26/17 Unknown Malaria parasites Not Reportable 01/26/17 Unknown Juan M Bodies Not Reportable 01/26/17 Unknown Hem Pathologist Commnt No 01/26/17 Unknown PT 14.9 Sec. (12.2-14.9) 01/26/17 17:53 INR 1.18 (0.87-1.13) H 01/26/17 17:53 APTT 24.9 Sec. (24.2-36.6) 01/26/17 17:53 Sodium 137 mmol/L (137-145) 02/07/17 05:28 Potassium 3.8 mmol/L (3.6-5.0) 02/07/17 05:28 Chloride 100.7 mmol/L (98-107) 02/07/17 05:28 Carbon Dioxide 25 mmol/L (22-30) 02/07/17 05:28 Anion Gap 15 mmol/L 02/07/17 05:28 BUN 15 mg/dL (9-20) 02/07/17 05:28 Creatinine 0.7 mg/dL (0.8-1.5) L 02/07/17 05:28 Estimated GFR > 60 ml/min 02/07/17 05:28 BUN/Creatinine Ratio 21.42 % 02/07/17 05:28 Glucose 138 mg/dL (75-100) H 02/07/17 05:28 POC Glucose 116 (70-105) H 02/07/17 11:30 Calcium 8.4 mg/dL (8.4-10.2) 02/07/17 05:28 Phosphorus 4.3 mg/dL (2.5-4.5) 02/07/17 05:28 Magnesium 1.7 mg/dL (1.7-2.3) 02/07/17 05:28 Total Bilirubin 0.3 mg/dL (0.1-1.2) 02/05/17 04:27 AST 30 units/L (5-40) 02/05/17 04:27 ALT 73 units/L (7-56) H 02/05/17 04:27 Alkaline Phosphatase 61 units/L (35-129) 02/05/17 04:27 Total Protein 6.6 g/dL (6.3-8.2) 02/05/17 04:27 Albumin 3.0 g/dL (3.9-5) L 02/05/17 04:27 Albumin/Globulin Ratio 0.8 % 02/05/17 04:27 Blood Type O POSITIVE 01/26/17 10:45 Antibody Screen Negative 01/26/17 10:45 Crossmatch See Detail 01/26/17 10:45
[2017-02-07 23:51] VITALS: BP 116/68
--- NOTE | 2017-02-08 07:24 | Progress Note ---
Assessment and Plan Assessment and plan: --Bladder cancer Status post cystectomy, prostatectomy stable Continue supportive care --Postop Ileus, resolved Advance diet as tolerated, wean and discontinue TPN --Anemia, stable H&H --Hypotension, resolved --DVT prophylaxis SCDs, no pharmacologic anticoagulation in view of postoperative state Patient is medically stable for discharge I will sign off History Interval history: patient seen and evaluated this morning medical records reviewed No new events reported by the nursing staff Patient tolerating diet, TPN discontinued, patient has no complaints Alert awake oriented 3 not in acute distress vital signs are stable Hospitalist Physical - Constitutional Vitals: Temp Pulse Resp BP Pulse Ox 98.2 F 88 20 116/68 98 02/07/17 23:30 02/07/17 23:30 02/07/17 23:30 02/07/17 23:30 02/07/17 23:30 General appearance: Present: no acute distress, well-nourished - EENT Eyes: Present: PERRL, EOM intact - Neck Neck: Present: supple, normal ROM - Respiratory Respiratory effort: normal Respiratory: negative: rales, rhonchi, wheezing - Cardiovascular Rhythm: regular Heart Sounds: Present: S1 & S2 - Extremities Extremities: no ischemia, pulses intact, pulses symmetrical Peripheral Pulses: within normal limits - Abdominal General gastrointestinal: soft, non-tender, non-distended, normal bowel sounds - Integumentary Integumentary: Present: clear, warm - Psychiatric Psychiatric: appropriate mood/affect, cooperative - Neurologic Neurologic: CNII-XII intact, moves all extremities Results - Labs CBC & Chem 7: 01/31/17 05:03 02/07/17 05:28 Labs: Laboratory Last Values WBC 10.0 K/mm3 (4.5-11.0) 01/31/17 05:03 RBC 3.67 M/mm3 (3.65-5.03) 01/31/17 05:03 Hgb 10.0 gm/dl (11.8-15.2) L 01/31/17 05:03 Hct 31.3 % (35.5-45.6) L 01/31/17 05:03 MCV 85 fl (84-94) 01/31/17 05:03 MCH 27 pg (28-32) L 01/31/17 05:03 MCHC 32 % (32-34) 01/31/17 05:03 RDW 15.0 % (13.2-15.2) 01/31/17 05:03 Plt Count 248 K/mm3 (140-440) 01/31/17 05:03 Lymph % (Auto) 16.4 % (13.4-35.0) 01/31/17 05:03 [place] % (Auto) 10.9 % (0.0-7.3) H 01/31/17 05:03 Eos % (Auto) 3.9 % (0.0-4.3) 01/31/17 05:03 Baso % (Auto) 0.5 % (0.0-1.8) 01/31/17 05:03 Lymph # 1.6 K/mm3 (1.2-5.4) 01/31/17 05:03 [place] # 1.1 K/mm3 (0.0-0.8) H 01/31/17 05:03 Eos # 0.4 K/mm3 (0.0-0.4) 01/31/17 05:03 Baso # 0.0 K/mm3 (0.0-0.1) 01/31/17 05:03 Add Manual Diff Complete 01/26/17 Unknown Total Counted 100 01/26/17 Unknown Seg Neutrophils % 68.3 % (40.0-70.0) 01/31/17 05:03 Seg Neuts % (Manual) 90.0 % (40.0-70.0) H 01/26/17 Unknown Band Neutrophils % 0 % 01/26/17 Unknown Lymphocytes % (Manual) 5.0 % (13.4-35.0) L 01/26/17 Unknown Reactive Lymphs % (Man) 0 % 01/26/17 Unknown Monocytes % (Manual) 5.0 % (0.0-7.3) 01/26/17 Unknown Eosinophils % (Manual) 0 % (0.0-4.3) 01/26/17 Unknown Basophils % (Manual) 0 % (0.0-1.8) 01/26/17 Unknown Metamyelocytes % 0 % 01/26/17 Unknown Myelocytes % 0 % 01/26/17 Unknown Promyelocytes % 0 % 01/26/17 Unknown Blast Cells % 0 % 01/26/17 Unknown Nucleated RBC % Not Reportable 01/26/17 Unknown Seg Neutrophils # 6.8 K/mm3 (1.8-7.7) 01/31/17 05:03 Seg Neutrophils # Man 14.4 K/mm3 (1.8-7.7) H 01/26/17 Unknown Band Neutrophils # 0.0 K/mm3 01/26/17 Unknown Lymphocytes # (Manual) 0.8 K/mm3 (1.2-5.4) L 01/26/17 Unknown Abs React Lymphs (Man) 0.0 K/mm3 01/26/17 Unknown Monocytes # (Manual) 0.8 K/mm3 (0.0-0.8) 01/26/17 Unknown Eosinophils # (Manual) 0.0 K/mm3 (0.0-0.4) 01/26/17 Unknown Basophils # (Manual) 0.0 K/mm3 (0.0-0.1) 01/26/17 Unknown Metamyelocytes # 0.0 K/mm3 01/26/17 Unknown Myelocytes # 0.0 K/mm3 01/26/17 Unknown Promyelocytes # 0.0 K/mm3 01/26/17 Unknown Blast Cells # 0.0 K/mm3 01/26/17 Unknown WBC Morphology Not Reportable 01/26/17 Unknown Hypersegmented Neuts Not Reportable 01/26/17 Unknown Hyposegmented Neuts Not Reportable 01/26/17 Unknown Hypogranular Neuts Not Reportable 01/26/17 Unknown Smudge Cells Not Reportable 01/26/17 Unknown Toxic Granulation Not Reportable 01/26/17 Unknown Toxic Vacuolation Not Reportable 01/26/17 Unknown Dohle Bodies Not Reportable 01/26/17 Unknown Pelger-Huet Anomaly Not Reportable 01/26/17 Unknown Sara Rods Not Reportable 01/26/17 Unknown Platelet Estimate Consistent w auto 01/26/17 Unknown Clumped Platelets Not Reportable 01/26/17 Unknown Plt Clumps, EDTA Not Reportable 01/26/17 Unknown Large Platelets Not Reportable 01/26/17 Unknown Giant Platelets Not Reportable 01/26/17 Unknown Platelet Satelliting Not Reportable 01/26/17 Unknown Plt Morphology Comment Not Reportable 01/26/17 Unknown RBC Morphology Not Reportable 01/26/17 Unknown Dimorphic RBCs Not Reportable 01/26/17 Unknown Polychromasia Not Reportable 01/26/17 Unknown Hypochromasia Not Reportable 01/26/17 Unknown Poikilocytosis Not Reportable 01/26/17 Unknown Anisocytosis 1+ 01/26/17 Unknown Microcytosis Not Reportable 01/26/17 Unknown Macrocytosis Not Reportable 01/26/17 Unknown Spherocytes Not Reportable 01/26/17 Unknown Pappenheimer Bodies Not Reportable 01/26/17 Unknown Sickle Cells Not Reportable 01/26/17 Unknown Target Cells Not Reportable 01/26/17 Unknown Tear Drop Cells Not Reportable 01/26/17 Unknown Ovalocytes Not Reportable 01/26/17 Unknown Helmet Cells Not Reportable 01/26/17 Unknown [place] Bodies Not Reportable 01/26/17 Unknown Tony Rings Not Reportable 01/26/17 Unknown Davin Cells Not Reportable 01/26/17 Unknown Bite Cells Not Reportable 01/26/17 Unknown Crenated Cell Not Reportable 01/26/17 Unknown Elliptocytes Not Reportable 01/26/17 Unknown Acanthocytes (Spur) Not Reportable 01/26/17 Unknown Rouleaux Not Reportable 01/26/17 Unknown Hemoglobin C Crystals Not Reportable 01/26/17 Unknown Schistocytes Not Reportable 01/26/17 Unknown Malaria parasites Not Reportable 01/26/17 Unknown Juan M Bodies Not Reportable 01/26/17 Unknown Hem Pathologist Commnt No 01/26/17 Unknown PT 14.9 Sec. (12.2-14.9) 01/26/17 17:53 INR 1.18 (0.87-1.13) H 01/26/17 17:53 APTT 24.9 Sec. (24.2-36.6) 01/26/17 17:53 Sodium 137 mmol/L (137-145) 02/07/17 05:28 Potassium 3.8 mmol/L (3.6-5.0) 02/07/17 05:28 Chloride 100.7 mmol/L (98-107) 02/07/17 05:28 Carbon Dioxide 25 mmol/L (22-30) 02/07/17 05:28 Anion Gap 15 mmol/L 02/07/17 05:28 BUN 15 mg/dL (9-20) 02/07/17 05:28 Creatinine 0.7 mg/dL (0.8-1.5) L 02/07/17 05:28 Estimated GFR > 60 ml/min 02/07/17 05:28 BUN/Creatinine Ratio 21.42 % 02/07/17 05:28 Glucose 138 mg/dL (75-100) H 02/07/17 05:28 POC Glucose 112 (70-105) H 02/08/17 05:17 Calcium 8.4 mg/dL (8.4-10.2) 02/07/17 05:28 Phosphorus 4.3 mg/dL (2.5-4.5) 02/07/17 05:28 Magnesium 1.7 mg/dL (1.7-2.3) 02/07/17 05:28 Total Bilirubin 0.3 mg/dL (0.1-1.2) 02/05/17 04:27 AST 30 units/L (5-40) 02/05/17 04:27 ALT 73 units/L (7-56) H 02/05/17 04:27 Alkaline Phosphatase 61 units/L (35-129) 02/05/17 04:27 Total Protein 6.6 g/dL (6.3-8.2) 02/05/17 04:27 Albumin 3.0 g/dL (3.9-5) L 02/05/17 04:27 Albumin/Globulin Ratio 0.8 % 02/05/17 04:27 Blood Type O POSITIVE 01/26/17 10:45 Antibody Screen Negative 01/26/17 10:45 Crossmatch See Detail 01/26/17 10:45
--- NOTE | 2017-02-08 09:02 | Discharge Summary ---
Providers - Providers Date of Admission: 01/26/17 10:06 Date of discharge: 02/08/17 Attending physician: SHIRA OLIVO 01/26/17 11:41 Consult to Anesthesiology [CONS] Routine Consulting Provider: JH CORTES Reason For Exam: pre op 01/26/17 17:20 Consult to Physician [CONS] Urgent Consulting Provider: SHIRA OLIVO Reason For Exam: hypertension Place consult to:: kaur Notified:: yes Was contact made?: Yes 01/26/17 17:25 Consult to Wound/ET Nurse [CONS] Urgent Reason For Exam: wound eval 01/31/17 11:55 Consult to Dietitian/Nutrition [CONS] Routine Physician Instructions: Nutritional Consult for TPN administration Reason For Exam: poss hyperal Reason for Consult: Malnutrition 02/03/17 15:00 Consult to Dietitian/Nutrition [CONS] Stat Physician Instructions: Reason For Exam: Reason for Consult: Write/Manage TPN/PPN 02/06/17 09:42 Physical Therapy Evaluation and Treat [CONS] Routine Comment: Reason For Exam: activity extended hosp stay, ileus Primary care physician: CARE [facility] Hospitalization Condition: Stable Procedures: cystectomy with conduit Hospital course: unremarakable course excpet for ilieus Disposition: DISCHARGED TO HOME OR SELFCARE Core Measure Documentation - Palliative Care Palliative Care/ Comfort Measures: Not Applicable - Core Measures Any of the following diagnoses?: none - VTE Discharge Requirements Deep Vein Thrombosis/Pulmonary Embolism Present on Admission: No Has pt received <5 days of overlap therapy or INR<2.0: No Anticoagulant overlap therapy prescribed at discharge: No Contraindication No Overlap Therapy order at DC: Medical Contraindication - Acute [place] Discharge Requirements Aspirin at discharge: No Reason for no aspirin on DC: Surgical contraindication KANE/ARB for LVSD if EF <40%: Not Applicable Reason for no KANE/ARB: Medical contraindication Beta ashley at discharge: No Reason for no beta ashley on DC: Medical contraindication Statin for LDL = or >100 mg/dl on DC: Not Applicable Reason for no statin on DC: Surgical contraindication - Heart Failure Discharge Requirements KANE/ARB for LVSD if EF <40%: Not Applicable Reason for no KANE/ARB: Medical contraindication Beta ashley at discharge: No Reason for no beta ashley on DC: Medical contraindication - Stroke Discharge Requirements Statin for LDL = or >70 mg/dl on DC: Not Applicable Reason for no statin on DC: Medical Contraindication Anticoag for atrial fib/atrial flutter: Not Applicable Reason for no anticoag for AF/F on DC: Medical Contraindication Antithrombotic for ischemic stroke: No Reason for no antithrombotic on DC: Medical Contraindication Exam - Constitutional Vitals: Temp Pulse Resp BP Pulse Ox 98.2 F 88 20 116/68 98 02/07/17 23:30 02/07/17 23:30 02/07/17 23:30 02/07/17 23:30 02/07/17 23:30 Plan Follow up with: PRIMARY CARE, [Primary Care Provider] - 7 Days Prescriptions: Oxycodone HCl/Acetaminophen [Percocet 10/325 mg] 0.5 - 1 each PO Q6HR PRN #30 tablet PRN Reason: Pain
[2017-02-08] MEDS: HEPARIN SUB-Q SCH (11:01)
[2017-02-08] MEDS: PEPCID IV SCH (11:02)
== END 2017-02-08 13:30 | disposition home health service (06) | DRG 654 ==
LOC: 3A 10:06 → CC1 18:26 → CC2 02-02 15:47 → 2B-SURG 02-04 22:28
PROVIDERS: ADMIT Urology; ATTEND Urology
PROC: 0TTB0ZZ Resection of Bladder, Open Approach (ICD-10-PCS; principal; 2017-01-26)
PROC: 0T1807C Bypass Bilateral Ureters to Ileocutaneous with Autologous Tissue Substitute, Open Approach (ICD-10-PCS; 2017-01-26)
PROC: 0DTJ0ZZ Resection of Appendix, Open Approach (ICD-10-PCS; 2017-01-26)
PROC: 0D1B0Z4 Bypass Ileum to Cutaneous, Open Approach (ICD-10-PCS; 2017-01-26)
PROC: 0VT00ZZ Resection of Prostate, Open Approach (ICD-10-PCS; 2017-01-26)
PROC: 02H633Z Insertion of Infusion Device into Right Atrium, Percutaneous Approach (ICD-10-PCS; 2017-01-26)
PROC: B5131ZA Fluoroscopy of Right Jugular Veins using Low Osmolar Contrast, Guidance (ICD-10-PCS; 2017-01-26)
DX: C67.3 Malignant neoplasm of anterior wall of bladder (principal); D62 Acute posthemorrhagic anemia; K91.3 Postprocedural intestinal obstruction; R31.9 Hematuria, unspecified; R11.2 Nausea with vomiting, unspecified; N13.9 Obstructive and reflux uropathy, unspecified; I95.9 Hypotension, unspecified; Y83.8 Other surgical procedures as the cause of abnormal reaction of the patient, or of later complication, without mention of misadventure at the time of the procedure; Y92.239 Unspecified place in hospital as the place of occurrence of the external cause; Z87.891 Personal history of nicotine dependence; Z91.041 Radiographic dye allergy status; Z91.09 Other allergy status, other than to drugs and biological substances; Z79.899 Other long term (current) drug therapy
CPT/HCPCS: 36415; 62324; 71010; 74000; 74020; 80048; 80053; 82962; 83735; 84100; 85007; 85025; 85610; 85730; 86850; 86900; 86901; 86920; 87040; 87086; 88302; 88304; 88305; 88309; 88331; 90686; 94760; C1726; C1758; C1769; C1877; C2617; C9250; J0690; J1170; J1644; J1885; J1940; J2250; J2270; J2370; J2405; J2704; J2710; J2765; J2997; J3010; J7030; J7120; P9047

== ENCOUNTER 2017-04-12 09:10 | Outpatient (CLI) | payer MEDICAID | END 2017-04-12 09:11 | disposition home or self-care (01) | LOC: WOUND 09:10 | PROVIDERS: ATTEND Urology | DX: Z45.89 Encounter for adjustment and management of other implanted devices (principal) | CPT/HCPCS: 99202; G0463 ==

== ENCOUNTER 2019-04-19 17:37 | Emergency (ER) | payer MEDICAID ==
--- NOTE | 2019-04-19 17:53 | Event Note ---
ED Screening Note ED Screening Note: pt presents for colostomy bag change states the bag ripped states he does not have any more bags Dr. Wu, urologist hx of prostate CA states he is supposed to see the urologist next week denies any other PMHx former smoker, quit 2 months ago occ drinker no drug use This initial assessment/diagnostic orders/clinical plan/treatment(s) is/are subject to change based on patients health status, clinical progression and re- assessment by fellow clinical providers in the ED. Further treatment and workup at subsequent clinical providers discretion. Patient/guardian urged not to elope from the ED as their condition may be serious if not clinically assessed and managed.
[2019-04-19 17:54] VITALS: BP 115/82
--- NOTE | 2019-04-19 20:13 | Emergency Department Report ---
ED General Adult HPI - General Chief complaint: Medical Clearance Stated complaint: COLOSTOMY BAG CHANGING Time Seen by Provider: 04/19/19 17:51 Source: patient Mode of arrival: Ambulatory Limitations: No Limitations - History of Present Illness Initial comments: Patient is a 53-year-old -[place] male with a history of bladder cancer and s/p bladder resection and prostatectomy with ileocecal urostomy conduit bag placement, who presents to the ED with complaint of a malfunctioned urostomy bag which ripped open and is now draining the contents through his clothes for the last 3 hours. Patient states that he does not have any more supplies at home to change the urostomy bag and he does not have an appointment with his urologist until about a week from today. Patient denies fever, chills, nausea, vomiting, abdominal pain, dizziness, cough or traumatic injury. MD Complaint: Urostomy bag malfunction -: Sudden, hour(s) (3) Location: abdomen Radiation: non-radiation Severity scale (0 -10): 0 Quality: dull Consistency: constant Improves with: none Worsens with: none Associated Symptoms: denies other symptoms. denies: confusion, chest pain, cough, diaphoresis, fever/chills, headaches, loss of appetite, seizure, shortness of breath, weakness Treatments Prior to Arrival: none - Related Data Previous Rx's Medication Instructions Recorded Last Taken Type Acetaminophen [Acetaminophen TAB] 650 mg PO Q4H PRN #30 tablet 06/03/16 01/25/17 Rx Ferrous Sulfate [Feosol 325 MG tab] 325 mg PO BID #60 tablet 06/03/16 01/25/17 Rx oxyCODONE /ACETAMINOPHEN [Percocet 1 tab PO Q4H PRN #30 tablet 06/03/16 01/25/17 Rx 5/325 mg] Oxycodone HCl/Acetaminophen 0.5 - 1 each PO Q6HR PRN #30 tablet 02/06/17 Unknown Rx [Percocet 10/325 mg] Allergies Allergy/AdvReac Type Severity Reaction Status Date / Time Iodine and Iodide Containing Allergy Swelling Verified 04/19/19 17:53 Produc shrimp Allergy Swelling Verified 04/19/19 17:53 ED Review of Systems ROS: Stated complaint: COLOSTOMY BAG CHANGING Other details as noted in HPI Comment: All other systems reviewed and negative Constitutional: denies: chills, fever Eyes: denies: eye pain, eye discharge, vision change ENT: denies: ear pain, throat pain Respiratory: denies: cough, shortness of breath, wheezing Cardiovascular: denies: chest pain, palpitations Endocrine: no symptoms reported Gastrointestinal: other (Malfunctioned urostomy bag). denies: abdominal pain, nausea, diarrhea Genitourinary: other (Malfunctioned urostomy bag). denies: urgency, dysuria Musculoskeletal: denies: back pain, joint swelling, arthralgia Skin: denies: rash, lesions Neurological: denies: headache, weakness, paresthesias Psychiatric: denies: anxiety, depression Hematological/Lymphatic: denies: easy bleeding, easy bruising ED Past Medical Hx - Past Medical History Hx Hypertension: No Hx Congestive Heart Failure: No Hx Diabetes: No Hx GERD: No Hx Sickle Cell Disease: No Hx Asthma: No Hx COPD: No Hx HIV: No - Social History Smoking Status: Former Smoker Substance Use Type: Alcohol - Medications Home Medications: Home Medications Medication Instructions Recorded Confirmed Last Taken Type Acetaminophen [Acetaminophen TAB] 650 mg PO Q4H PRN #30 tablet 06/03/16 01/20/17 01/25/17 Rx Ferrous Sulfate [Feosol 325 MG tab] 325 mg PO BID #60 tablet 06/03/16 01/20/17 01/25/17 Rx oxyCODONE /ACETAMINOPHEN [Percocet 1 tab PO Q4H PRN #30 tablet 06/03/16 01/20/17 01/25/17 Rx 5/325 mg] Oxycodone HCl/Acetaminophen 0.5 - 1 each PO Q6HR PRN #30 tablet 02/06/17 Unknown Rx [Percocet 10/325 mg] ED Physical Exam - General Limitations: No Limitations General appearance: alert, in no apparent distress - Head Head exam: Present: atraumatic, normocephalic - Eye Eye exam: Present: normal appearance, PERRL, EOMI - ENT ENT exam: Present: normal exam, mucous membranes moist, TM's normal bilaterally, normal external ear exam - Neck Neck exam: Present: normal inspection, full ROM - Respiratory Respiratory exam: Present: normal lung sounds bilaterally. Absent: respiratory distress, chest wall tenderness, accessory muscle use, prolonged expiratory - Cardiovascular Cardiovascular Exam: Present: regular rate, normal rhythm, normal heart sounds. Absent: systolic murmur, diastolic murmur, rubs, gallop - GI/Abdominal GI/Abdominal exam: Present: soft, normal bowel sounds, other (Leaking Urostomy bag) - Rectal Rectal exam: Present: deferred - exam: Present: other (Malfunctioned, leaking Urostomy bag) - Extremities Exam Extremities exam: Present: normal inspection - Back Exam Back exam: Present: normal inspection - Neurological Exam Neurological exam: Present: alert, oriented X3, CN II-XII intact, normal gait, reflexes normal - Psychiatric Psychiatric exam: Present: normal affect, normal mood - Skin Skin exam: Present: warm, dry, intact, normal color. Absent: rash ED Course Vital Signs 04/19/19 17:52 Temperature 98.3 F Pulse Rate 91 H Respiratory 20 Rate Blood Pressure 115/82 O2 Sat by Pulse 98 Oximetry - Reevaluation(s) Reevaluation #1: 04/19/19 20:18 Patient is alert and oriented 3 and is not in any distress. The urostomy bag that malfunctioned and was changed in the ED and the patient was given a spare one to use at home as needed. Patient advised to follow-up with his urologist in the morning for further evaluation and to obtain more urostomy bags. ED Medical Decision Making - Medical Decision Making Patient is alert and oriented 3 and is not in distress. The urostomy bag was changed in the ED and patient discharged home and advised to follow-up with his urologist in the morning for further evaluation. - Differential Diagnosis Urostomy bag malfunction Critical care attestation.: If time is entered above; I have spent that time in minutes in the direct care of this critically ill patient, excluding procedure time. ED Disposition Clinical Impression: Obstruction of urostomy catheter Disposition: DC-01 TO HOME OR SELFCARE Is pt being admited?: No Does the pt Need Aspirin: No Condition: Stable Instructions: Urostomy Care (ED) Additional Instructions: Follow-up with your urologist first thing in the morning for further evaluation. Referrals: KRYSTA BUCIO MD [Primary Care Provider] - 3-5 Days Time of Disposition: 20:16 Print Language: GREEK
== END 2019-04-19 20:30 | disposition home or self-care (01) ==
LOC: ED 17:37
DX: T83.098A Other mechanical complication of other urinary catheter, initial encounter (principal); Z87.891 Personal history of nicotine dependence; Z88.8 Allergy status to other drugs, medicaments and biological substances; Z91.013 Allergy to seafood; Z79.899 Other long term (current) drug therapy; Y84.9 Medical procedure, unspecified as the cause of abnormal reaction of the patient, or of later complication, without mention of misadventure at the time of the procedure; Y92.89 Other specified places as the place of occurrence of the external cause
CPT/HCPCS: 99281

== ENCOUNTER 2022-07-27 09:18 | Outpatient (CLI) | payer OTHER ==
--- NOTE | 2022-07-27 11:24 | XRay Report ---
Right knee, 2 views HISTORY: Pain COMPARISON: None FINDINGS: There is corticated fragmentation of the lateral patella. Tiny metallic density within the patella may be postoperative in etiology. There is mild tricompartmental osteoarthritis of the knee, preferentially involving the patellofemoral and medial compartment. No acute fracture or malalignment . No worrisome joint effusion. IMPRESSION: 1. No acute findings. 2. Chronic findings as above. Signer Name: Wale Singh MD Signed: 07/27/2022 11:20 AM Workstation Name: [id number]
--- NOTE | 2022-07-27 11:49 | XRay Report ---
Lumbar spine, 3 views HISTORY: Pain COMPARISON: CT from 05/28/2016. FINDINGS: Grade 1/2 anterolisthesis of L5-S1 related to chronic bilateral pars defects. Moderate-severe disc sp irving height loss at L5-S1. Other disc spaces are preserved. There is no evidence of acute fracture. SI joints are intact. 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 Disc degeneration at L5-S1. Signer Name: Wale Singh MD Signed: 07/27/2022 11:44 AM Workstation Name: [id number]
== END 2022-07-27 09:19 | disposition home or self-care (01) ==
LOC: XRAY 09:18
PROVIDERS: ATTEND Internal Medicine
DX: M43.17 Spondylolisthesis, lumbosacral region (principal); M17.11 Unilateral primary osteoarthritis, right knee
CPT/HCPCS: 72100